=== PATIENT | male | born 1965 | race Caucasian/White ===

== ENCOUNTER 2016-10-28 17:57 | Emergency (ER) | payer OTHER ==
[~2016-10-28] VITALS: Ht 190.5 cm; Wt 104.3 kg
[~2016-10-28 17:57] MED LIST: FERR325E14 PO; FOLI1TAB19 PO; HYDR25SU91 RC; OMEP20TC10 PO; ONDA8TAB1 PO; PANT40EC PO; SYN.025 PO; [UNRECOGNIZED DRUG - CODE] PO
[2016-10-28 18:05] VITALS: BP 130/86
--- NOTE | 2016-10-28 18:16 | NUR ---
Patient ambulated to bed 4.
--- NOTE | 2016-10-28 18:17 | NUR ---
51/M BIB FAMILY C/O CHRONIC PAIN TO NECK, ARMS, LEGS X 6 YRS RECTAL BLEEDING X > 1 YR;FATIGUE, DIZZINESS. HX HEMORRHOID, HTN, THYROID. PT DENIES N/V/D; SKIN IS PINK/WARM/DRY; AAOX4 WITH EVEN AND STEADY GAIT; LUNGS CLEAR BL; HR TACHYCARDIA; PT DENIES ANY FEVER, CP, SOB, OR COUGH AT THIS TIME; PATIENT STATES PAIN OF 10/10 AT THIS TIME; VSS; PATIENT POSITIONED FOR COMFORT; HOB ELEVATED; BEDRAILS UP X2; BED DOWN. ER MD MADE AWARE OF PT STATUS.
[2016-10-28] MEDS ORDERED: NACL 0.9% 1,000 ML IV SCH (18:19)
[2016-10-28 18:41] LABS: EOSINOPHILS # (AUTO) 0.1 K/uL (0-0.4); LYMPHOCYTES # (AUTO) 1.5 K/uL (2.0-11.5); MEAN CORPUSCULAR VOLUME 64 fL (80-94); MONOCYTES # (AUTO) 0.7 K/uL (0.8-1.0); NEUTROPHILS # (AUTO) 4.2 K/uL (1.8-7.7); NEUTROPHILS % (AUTO) 63.5 % (42.2-75.2)
[2016-10-28 18:46] LABS: BASOPHILS # (AUTO) 0.2 K/uL (0.00-0.22); BASOPHILS % (AUTO) 2.5 % (0.0-2.0); EOSINOPHILS % (AUTO) 1.9 % (0.0-4.0); HEMATOCRIT 29.9 % (36-52); HEMOGLOBIN 8.9 g/dL (12.0-18.0); LYMPHOCYTES % (AUTO) 22.2 % (20.5-51.1); MEAN CORPUSCULAR HEMOGLOBIN 19 pg (27-31); MEAN CORPUSCULAR HGB CONC 30 g/dL (33-37); MONOCYTES % (AUTO) 9.9 % (1.7-9.3); PLATELET COUNT (AUTO) 173 K/uL (140-450); RED CELL DISTRIBUTION WIDTH 18.4 % (11.6-13.7); WHITE BLOOD COUNT (AUTO) 6.7 K/uL (4.8-10.8)
--- NOTE | 2016-10-28 18:49 | NUR ---
Note undone in EDM - 10/28/16 at 1902 by [email or web address] 51/M BIB FAMILY C/O CHRONIC PAIN TO NECK, ARMS, LEGS X 6 YRS RECTAL BLEEDING X > 1 YR;FATIGUE, DIZZINESS. HX HEMORRHOID, HTN, THYROID. PT DENIES N/V/D; SKIN IS PINK/WARM/DRY; AAOX4 WITH EVEN AND STEADY GAIT; LUNGS CLEAR BL; HR TACHYCARDIA; PT DENIES ANY FEVER, CP, SOB, OR COUGH AT THIS TIME; PATIENT STATES PAIN OF 10/10 AT THIS TIME; VSS; PATIENT POSITIONED FOR COMFORT; HOB ELEVATED; BEDRAILS UP X2; BED DOWN. ER MD MADE AWARE OF PT STATUS.
[2016-10-28 18:54] LABS: ANION GAP 13.7 (8-16); CARBON DIOXIDE 26.8 mmol/L (21-32); CREATININE 1.6 mg/dL (0.6-1.3); POTASSIUM 3.5 mmol/L (3.5-5.1)
[2016-10-28 18:58] LABS: INR 1.3 (0.8-1.2); PARTIAL THROMBOPLASTIN TIME 26.7 secs (22-35.6); PROTHROMBIN TIME 12.3 secs (10.8-13.4)
[2016-10-28 19:06] LABS: ALBUMIN 4.4 g/dL (3.4-5.0); TOTAL BILIRUBIN 0.8 mg/dL (0.0-1.0); TOTAL PROTEIN, SERUM 8.2 g/dL (6.4-8.2)
--- NOTE | 2016-10-28 19:17 | NUR ---
GAVE REPORT TO DEA LUGO
--- NOTE | 2016-10-28 19:27 | NUR ---
Dr. Mcdaniel evaluating patient at bedside.
[2016-10-28] MEDS ORDERED: MORPHINE SULFATE 4 MG/ML SYR IVP ONE (19:35)
[2016-10-28 20:28] VITALS: BP 132/83
--- NOTE | 2016-10-28 20:28 | NUR ---
Patient discharged BY DR CADE with v/s stable. Written and verbal after care instructions given and explained BY ER MD. Patient alert, oriented and verbalized understanding of instructions. Ambulatory with steady gait. All questions addressed prior to discharge. ID band removed. Patient advised to follow up with PMD OR RETURN TO ER IF CONDITION WORSENS. Rx of GABAPENTIN given. Patient educated on indication of medication including possible reaction and side effects. Opportunity to ask questions provided and answered.FAMILY MEMBER CALLED TO PICK HIM UP. PER SASKIA SHE WILL BE HERE AT 2100. PT ASSISTED VIA WHEELCHAIR TO THE ER LOBBY. NO S/S OF DISTRESS NOTED .
== END 2016-10-28 20:28 | disposition home or self-care (01) ==
LOC: MED 17:57
DX: G62.9 Polyneuropathy, unspecified (principal); K21.9 Gastro-esophageal reflux disease without esophagitis; I10 Essential (primary) hypertension; Z79.899 Other long term (current) drug therapy; F10.10 Alcohol abuse, uncomplicated
CPT/HCPCS: 36415; 71010; 80053; 85025; 85610; 85730; 86870; 86886; 86900; 86901; 93005; 96361; 96374; 99285; J2270; J7030; Q0092

== ENCOUNTER 2017-03-17 20:17 | Emergency (ER) | payer OTHER ==
[~2017-03-17] VITALS: Ht 190.5 cm; Wt 98.9 kg
[2017-03-17 20:41] VITALS: BP 138/88
--- NOTE | 2017-03-17 23:04 | NUR ---
TO ER BED 8
--- NOTE | 2017-03-18 00:05 | NUR ---
WENT FOR KUB VIA WHEELCHAIR.
--- NOTE | 2017-03-18 00:05 | NUR ---
Messi thompson in [facility] - 03/18/17 at 0010 by [email or web address] WENT FOR CXR VIA WHEELCHAIR.
--- NOTE | 2017-03-18 00:12 | NUR ---
BACK FROM RADIOLOGY DEPARTMENT.
--- NOTE | 2017-03-18 00:37 | NUR ---
DISCHARGED STABLE. PRESCRIPTIONS,VERBAL AND WRITTEN AFTERCARE INSTRUCTIONS GIVEN. VERBALIZED UNDERSTANDING.
[2017-03-18 00:48] VITALS: BP 129/76
== END 2017-03-18 00:37 | disposition home or self-care (01) ==
LOC: MED 20:17
DX: K59.00 Constipation, unspecified (principal); G47.09 Other insomnia; K21.9 Gastro-esophageal reflux disease without esophagitis; I10 Essential (primary) hypertension; Z79.899 Other long term (current) drug therapy
CPT/HCPCS: 74000; 93005; 99284

== ENCOUNTER 2017-08-08 06:47 | Emergency (ER) | payer OTHER ==
[~2017-08-08] VITALS: Ht 190.5 cm; Wt 104.3 kg
[2017-08-08 06:51] VITALS: BP 139/83
--- NOTE | 2017-08-08 07:01 | NUR ---
PT TAKEN TO BED 3
[2017-08-08] MEDS ORDERED: KETOROLAC 30 MG/ML VIAL IM ONE (07:05)
[2017-08-08] MEDS ORDERED: HYDROcodone/APAP 5/325 MG 1 TAB TAB PO ONE (07:05)
[2017-08-08] MEDS ORDERED: ONDANSETRON 4 MG ODT PO ONE (07:05)
--- NOTE | 2017-08-08 07:11 | NUR ---
PT TAKEN TO RADIOLOGY
[2017-08-08] MEDS ORDERED: ONDANSETRON 4 MG TAB ONE (07:32)
[2017-08-08] MEDS ORDERED: HYDROcodone/APAP 5/325 MG 1 TAB TAB ONE (07:32)
[2017-08-08] MEDS ORDERED: KETOROLAC 30 MG/ML VIAL ONE ×2 (07:33→09:38)
--- NOTE | 2017-08-08 07:43 | NUR ---
DR REYNA AT BEDSIDE TO UPDATE PT ON PLAN OF CARE
[2017-08-08] MEDS ORDERED: LIDOCAINE 1% 500 MG/50 ML VIAL INJ SCH (07:45)
--- NOTE | 2017-08-08 07:47 | NUR ---
Pt c/o left knee pain 10/10 and swollen after jumping off his truck bed since yesterday 1500. Pt is unable to bear weight. Left knee has +2 cap refill, no loss of ROM. [place] 5m, ketorolac 30mg IM and zofran odt given at 0741. NAD
[2017-08-08] MEDS ORDERED: LIDOCAINE MPF 1% - **ER/OR** 10 MG/ML VIAL ONE (08:09)
[2017-08-08] MEDS ORDERED: ONDANSETRON 4 MG/2 ML VIAL ONE (08:29)
[2017-08-08] MEDS ORDERED: ONDANSETRON 4 MG/2 ML VIAL IVP ONE (08:40)
[2017-08-08] MEDS ORDERED: KETOROLAC 30 MG/ML VIAL IVP ONE (08:40)
[2017-08-08] MEDS ORDERED: NACL 0.9% 1,000 ML IV ONE (08:40)
[2017-08-08] MEDS ORDERED: HYDROmorphone 1 MG/ML AMP IVP ONE (09:50)
[2017-08-08] MEDS ORDERED: HYDROmorphone 1 MG/ML AMP ONE (09:51)
--- NOTE | 2017-08-08 10:42 | NUR ---
Patient discharged with v/s stable. Written and verbal after care instructions given and explained. Patient alert, oriented and verbalized understanding of instructions. Ambulatory with by caregiver. All questions addressed prior to discharge. ID band removed. Patient advised to follow up with PMD. Rx of NAPROXEN, ZOFRAN ODT, AND NORCO given. Patient educated on indication of medication including possible reaction and side effects. Opportunity to ask questions provided and answered.
[2017-08-08 11:09] VITALS: BP 150/89
== END 2017-08-08 10:42 | disposition home or self-care (01) ==
LOC: MED 06:47
DX: S82.142A Displaced bicondylar fracture of left tibia, initial encounter for closed fracture (principal); K21.9 Gastro-esophageal reflux disease without esophagitis; I10 Essential (primary) hypertension; Z90.49 Acquired absence of other specified parts of digestive tract; W17.89XA Other fall from one level to another, initial encounter; Y93.89 Activity, other specified; Y92.89 Other specified places as the place of occurrence of the external cause; Y99.8 Other external cause status
CPT/HCPCS: 10022; 29505; 73502; 73562; 73600; 73700; 96361; 96372; 96374; 96375; 99284; J1170; J1885; J2001; J2405; J7030; Q0162

== ENCOUNTER 2017-09-10 17:54 | Emergency (ER) | payer OTHER ==
[~2017-09-10] VITALS: Ht 190.5 cm; Wt 104.3 kg
[2017-09-10 18:03] VITALS: BP 154/92
--- NOTE | 2017-09-10 18:07 | NUR ---
PT SENT TO LOBBY TO WAIT FOR BED/CHAIR IN A W/C.
--- NOTE | 2017-09-10 18:07 | NUR ---
PT PROVIDED WITH AN ICE PACK FOR LEFT KNEE SWELLING.
--- NOTE | 2017-09-10 19:41 | NUR ---
PT TAKEN TO CHAIR B
--- NOTE | 2017-09-10 19:54 | NUR ---
Dr. Alvarado evaluating patient.
[2017-09-10] MEDS ORDERED: KETOROLAC 30 MG/ML VIAL IM ONE (20:00)
[2017-09-10] MEDS ORDERED: HYDROcodone/APAP 5/325 MG 1 TAB TAB PO ONE (20:00)
--- NOTE | 2017-09-10 20:08 | NUR ---
PT TAKEN TO XRAY
--- NOTE | 2017-09-10 20:26 | NUR ---
PT RETURN FROM XRAY
[2017-09-10 21:23] VITALS: BP 137/82
== END 2017-09-10 21:23 | disposition home or self-care (01) ==
LOC: MED 17:54
DX: G89.18 Other acute postprocedural pain (principal); M25.562 Pain in left knee; K21.9 Gastro-esophageal reflux disease without esophagitis; I10 Essential (primary) hypertension; Z79.899 Other long term (current) drug therapy
CPT/HCPCS: 73562; 96372; 99284; J1885

== ENCOUNTER 2017-09-22 22:02 | Inpatient (IN) | payer OTHER ==
[~2017-09-22] VITALS: Ht 190.5 cm; Wt 99.8 kg
[2017-09-22 22:06] VITALS: BP 110/86
--- NOTE | 2017-09-22 22:13 | NUR ---
PT TAKEN TO BED 1
[2017-09-22] MEDS ORDERED: ONDANSETRON 4 MG/2 ML VIAL IVP ONE (22:15)
[2017-09-22] MEDS ORDERED: NACL 0.9% 500 ML IV SCH (22:15)
--- NOTE | 2017-09-22 22:15 | NUR ---
PATIENT PRESENTS TO ED WITH BLOODY VOMIT SEVERAL TIMES SINCE YESTERDAY . PT HAS C/CO OF N/V/ SKIN IS PINK/WARM/DRY; AAOX4 WITH EVEN DIFFICULTY WALKING DUE TO RECENT FX OF LEFT TIBA. LUNGS CLEAR BL; HR EVEN AND REGULAR; PT DENIES ANY FEVER, CP, SOB, OR COUGH AT THIS TIME; PATIENT STATES PAIN OF 7/10 AT THIS TIME AND PAIN IN ABDOMEN DUE TO CONSTANT VOMITIMG; VSS; PATIENT POSITIONED FOR COMFORT; HOB ELEVATED; BEDRAILS UP X2; BED DOWN. ER MD MADE AWARE OF PT STATUS.
[2017-09-22 22:41] LABS: BASOPHILS # (AUTO) 0.2 K/uL (0.00-0.22); BASOPHILS % (AUTO) 2.2 % (0.0-2.0); EOSINOPHILS % (AUTO) 0.3 % (0.0-4.0); HEMATOCRIT 31.6 % (36-52); HEMOGLOBIN 9.7 g/dL (12.0-18.0); LYMPHOCYTES # (AUTO) 1.7 K/uL (2.0-11.5); LYMPHOCYTES % (AUTO) 17.6 % (20.5-51.1); MEAN CORPUSCULAR HEMOGLOBIN 21 pg (27-31); MEAN CORPUSCULAR HGB CONC 31 g/dL (33-37); MEAN CORPUSCULAR VOLUME 68 fL (80-94); MONOCYTES # (AUTO) 0.7 K/uL (0.8-1.0); MONOCYTES % (AUTO) 7.8 % (1.7-9.3); NEUTROPHILS # (AUTO) 6.8 K/uL (1.8-7.7); NEUTROPHILS % (AUTO) 72.1 % (42.2-75.2); PLATELET COUNT (AUTO) 218 K/uL (140-450); RED BLOOD CELL COUNT(AUTO) 4.68 MIL/uL (4.20-6.10); RED CELL DISTRIBUTION WIDTH 19.4 % (11.6-13.7); WHITE BLOOD COUNT (AUTO) 9.4 K/uL (4.8-10.8)
[2017-09-22] MEDS ORDERED: MORPHINE SULFATE 4 MG/ML SYR IVP ONE (22:45)
[2017-09-22 22:55] LABS: ALBUMIN 3.8 g/dL (3.4-5.0); ANION GAP 23.8 (8-16); CREATININE 1.2 mg/dL (0.7-1.3); POTASSIUM 3.8 mmol/L (3.5-5.1); TOTAL BILIRUBIN 0.9 mg/dL (0.0-1.0)
[2017-09-22 23:11] LABS: PROTHROMBIN TIME 13.3 secs (10.8-13.4)
--- NOTE | 2017-09-23 | NUR ---
VITAL SIGNS WITHIN NORMAL LIMITS. PT IN STABLE CONDITION, NO SIGNS OF DISTRESS NOTED. BED IN LOWEST POSITION, CALL LIGHT WITHIN REACH. WILL CONTINUE TO MONITOR. Addendum: 09/24/17 at 0747 by Julieta Murphy RN DISREGARD NOTE. WRONG INPUT.
--- NOTE | 2017-09-23 00:03 | NUR ---
Dr. Man evaluating patient.
[2017-09-23] MEDS ORDERED: MORPHINE SULFATE 4 MG/ML SYR IVP ONE (00:15)
[2017-09-23] MEDS ORDERED: PANTOPRAZOLE 40 MG INJ VIAL IVP ONE (00:15)
[2017-09-23] MEDS ORDERED: NACL 0.9% 1,000 ML IV ONE ×2 (00:15→01:00)
[2017-09-23] MEDS ORDERED: PROMETHAZINE 25 MG/ML VIAL IVP ONE (00:15)
[2017-09-23] MEDS ORDERED: ACETAMINOPHEN 325 MG TAB PO PRN (01:00)
[2017-09-23] MEDS ORDERED: LORazepam 2 MG/ML VIAL IVP PRN (01:00)
[2017-09-23 02:05] VITALS: BP 137/73
--- NOTE | 2017-09-23 02:05 | NUR ---
PATIENT ADMITTED TO THE UNIT FROM ER. PATIENT IS AWAKE, ALERT AND ORIENTED. NO SIGNS AND SYMPTOMS OF DISTRESS NOTED. PATIENT ON ROOM AIR. IV SITE NOTED ON RIGHT ARM, IV SITE ASYMPTOMATIC, INTACT, AND PATENT. PLAN OF CARE DISCUSSED WITH PATIENT. PATIENT VERBALIZED UNDERSTANDING. BED IN LOWEST POSITION, SIDE RAILS UP AND CALL LIGHT WITHIN REACH. WILL CONTINUE TO MONITOR.
[2017-09-23 02:15] LABS: HEMATOCRIT 26.2 % (36-52); HEMOGLOBIN 8.2 g/dL (12.0-18.0)
[2017-09-23] MEDS ORDERED: PANTOPRAZOLE 40 MG INJ VIAL ONE ×2 (02:35→21:06)
[2017-09-23] MEDS: MORPHINE SULFATE 4 MG/ML SYR IVP PRN ×2 (02:44→06:55)
[2017-09-23] MEDS: PANTOPRAZOLE 80 MG in NACL 0.9% 100 ML IV SCH ×3 (02:52→21:12)
--- NOTE | 2017-09-23 06:00 | NUR ---
PATIENT HAD MODERATE AMOUNT OF LIQUID STOOL WITH BLOOD IN IT, ON THE BEDSIDE COMMODE AND SHEETS. SHEETS CHANGED AND PATIENT CLEANED. DR. HERNANDEZ NOTIFIED. ORDERS RECEIVED.
[2017-09-23] MEDS: ONDANSETRON 4 MG/2 ML VIAL IVP PRN ×3 (06:27→18:55)
--- NOTE | 2017-09-23 07:29 | NUR ---
PATIENT REPORT GIVEN TO MORNING NURSE AT BEDSIDE. PATIENT IS IN STABLE CONDITION.
--- NOTE | 2017-09-23 07:30 | NUR ---
RECEIVED REPORT FROM DIETARY TECH RN. PATIENT IS AAOX4, HAS NO SIGNS AND SYMPTOMS OF ACUTE DISTRESS NOTED AT THIS TIME. HAS IV TO RIGHT WRIST 22G ON PROTONIX DRIP AT 10ML/HR AND NS AT 100 ML/HR. SITE IS CLEAN DRY, PATENT AND INTACT. BEDSIDE COMMODE AVAILABLE. DISCUSSED PLAN OF CARE WITH PATIENT AND HE VERBALIZED UNDERSTANDING. BED IN LOWEST POSITION, SIDE RAILS UP X2, CALL LIGHT WITHIN REACH. WILL CONTINUE TO MONITOR.
--- NOTE | 2017-09-23 07:45 | NUR ---
PT C/O 04/25 ABDOMINAL PAIN, MEDICATED WITH MORPHINE PER ORDER. PT TOLERATED WELL. Addendum: 09/24/17 at 0747 by Julieta Murphy RN PLEASE DISREGARD, WRONG INPUT.
[2017-09-23 08:00] VITALS: BP 117/80
--- NOTE | 2017-09-23 08:00 | NUR ---
DR TATUM CALLED BACK FROM BEING PAGED BY WAREHOUSE SHIPPER RN. NEEDED TO CLARIFY ORDER MADE BY DR HERNANDEZ. SHE STATED THAT SHE WILL HAVE TO LOOK INTO IT WHEN SHE ARRIVES.
--- NOTE | 2017-09-23 09:27 | NUR ---
PATIENT HAS BEEN SCREENED AND CATEGORIZED MODERATE NUTRITION RISK. PATIENT WILL BE SEEN WITHIN 3-5 DAYS OF ADMISSION. 09/25/17-09/27/[address]
[2017-09-23] MEDS: MORPHINE SULFATE 2 MG/ML SYR IVP PRN ×4 (10:46→23:19)
[2017-09-23] MEDS: OCTREOTIDE ACETATE 1.25 MG in NACL 0.9% 250 ML IV SCH (10:52)
--- NOTE | 2017-09-23 11:00 | NUR ---
PATIENT HAS VERY DARK STOOL.
[2017-09-23 12:00] VITALS: BP 134/85
--- NOTE | 2017-09-23 12:50 | NUR ---
OBTAINED CONSENT FOR EGD. WILL KEEP PATIENT NPO UNTIL FURTHER NOTICE.
[2017-09-23 16:00] VITALS: BP 130/77
--- NOTE | 2017-09-23 19:26 | NUR ---
ENDORSED PATIENT TO MANAGER CANCER RN FOR CONTINUITY OF CARE. PATIENT IN STABLE CONDITION.
--- NOTE | 2017-09-23 19:27 | NUR ---
RECEIVED REPORT FROM DAY SHIFT RN, PT IS A/OX4, ON ROOM AIR. 22G IV TO LEFT HAND, AND 22G IV TO RIGHT FOREARM. IS ON BEDREST, WITH A HEALING INCISION TO LEFT KNEE. . UPDATED BOARD. DISCUSSED PLAN OF CARE WITH PT, PT VERBALIZED UNDERSTANDING. VITAL SIGNS WITHIN NORMAL LIMITS. PT IN STABLE CONDITION, NO SIGNS OF DISTRESS NOTED. BED IN LOWEST POSITION, CALL LIGHT WITHIN REACH. WILL CONTINUE TO MONITOR.
[2017-09-23 20:00] VITALS: BP 120/79
--- NOTE | 2017-09-23 23:50 | NUR ---
BLOOD TRANSFUSION STARTED, VERIFIED WITH DEA CORTEZ.
[2017-09-24] VITALS: BP 110/75
--- NOTE | 2017-09-24 | NUR ---
VITAL SIGNS WITHIN NORMAL LIMITS. PT IN STABLE CONDITION, NO SIGNS OF DISTRESS NOTED. BED IN LOWEST POSITION, CALL LIGHT WITHIN REACH. WILL CONTINUE TO MONITOR.
[2017-09-24 04:00] VITALS: BP 110/71
[2017-09-24] MEDS: MORPHINE SULFATE 2 MG/ML SYR IVP PRN ×5 (04:00→22:16)
--- NOTE | 2017-09-24 04:00 | NUR ---
VITAL SIGNS WITHIN NORMAL LIMITS. PT IN STABLE CONDITION, NO SIGNS OF DISTRESS NOTED. BED IN LOWEST POSITION, CALL LIGHT WITHIN REACH. WILL CONTINUE TO MONITOR.
--- NOTE | 2017-09-24 07:15 | NUR ---
RECEIVED REPORT FROM THE POWDER PRESS OPERATOR NURSE AT BEDSIDE FOR CONTINUITY OF CARE. PT IS AWAKE AND ORIENTED. INTRODUCED MYSELF AND UPDATED THE BOARD. BLOOD TRANSFUSION IS INFUSING. IV L HAND 22G. DRY AND INTACT. SKIN INTACT. L KNEE INCISION SCAR. LBM 09/23. BSC IN PLACE. NO COMPLAINTS AT THIS TIME. WILL CONTINUE TO MONITOR PT.
[2017-09-24 07:24] LABS: BASOPHILS # (AUTO) 0.3 K/uL (0.00-0.22); BASOPHILS % (AUTO) 3.5 % (0.0-2.0); EOSINOPHILS # (AUTO) 0.1 K/uL (0-0.4); EOSINOPHILS % (AUTO) 1.2 % (0.0-4.0); LYMPHOCYTES # (AUTO) 1.8 K/uL (2.0-11.5); LYMPHOCYTES % (AUTO) 23.2 % (20.5-51.1); MEAN CORPUSCULAR HEMOGLOBIN 22 pg (27-31); MEAN CORPUSCULAR HGB CONC 31 g/dL (33-37); MEAN CORPUSCULAR VOLUME 71 fL (80-94); MONOCYTES # (AUTO) 0.7 K/uL (0.8-1.0); MONOCYTES % (AUTO) 8.7 % (1.7-9.3); NEUTROPHILS # (AUTO) 4.8 K/uL (1.8-7.7); NEUTROPHILS % (AUTO) 63.4 % (42.2-75.2); PLATELET COUNT (AUTO) 137 K/uL (140-450); RED BLOOD CELL COUNT(AUTO) 2.93 MIL/uL (4.20-6.10); RED CELL DISTRIBUTION WIDTH 19.9 % (11.6-13.7); WHITE BLOOD COUNT (AUTO) 7.7 K/uL (4.8-10.8)
[2017-09-24] MEDS: PANTOPRAZOLE 80 MG in NACL 0.9% 100 ML IV SCH ×2 (07:48→17:00)
[2017-09-24 08:00] VITALS: BP 124/75
[2017-09-24 08:55] LABS: HEMATOCRIT 20.9 % (36-52); HEMOGLOBIN 6.5 g/dL (12.0-18.0)
[2017-09-24 08:58] LABS: ALBUMIN 2.9 g/dL (3.4-5.0); ANION GAP 10.5 (8-16); CARBON DIOXIDE 30.2 mmol/L (21-32); CREATININE 1.2 mg/dL (0.7-1.3); POTASSIUM 3.7 mmol/L (3.5-5.1); TOTAL BILIRUBIN 1.1 mg/dL (0.0-1.0)
[2017-09-24 09:03] LABS: MAGNESIUM 1.4 mg/dL (1.8-2.4); PHOSPHORUS 2.3 mg/dL (2.5-4.9)
--- NOTE | 2017-09-24 09:15 | NUR ---
REMOVED ALL BLOOD PRODUCTS AND TUBING INTO RED BIO HAZARD BAG. PT TOLERATED BLOOD TRANSFUSION WELL. NO SIDE EFFECTS. WILL RESUME SANDOSTATIN.
[2017-09-24] MEDS: OCTREOTIDE ACETATE 1.25 MG in NACL 0.9% 250 ML IV SCH (10:24)
--- NOTE | 2017-09-24 10:28 | NUR ---
DR. Denise LOFTON CAME TODAY TO SEE PT. TRYING TO DO EGD BUT NO TEAM. MIGHT NEED TO DO TOMORROW. WE WILL SEE. WILL KEEP PT UPDATED. DAYNA NEW SANDOSTATIN. PT TOLERATING WELL.
[2017-09-24] MEDS: FERRIC GLUCONATE 125 MG in NACL 0.9% 100 ML IV SCH (11:00)
[2017-09-24 11:23] LABS: BASOPHILS # (AUTO) 0.2 K/uL (0.00-0.22); BASOPHILS % (AUTO) 3.8 % (0.0-2.0); EOSINOPHILS # (AUTO) 0.1 K/uL (0-0.4); EOSINOPHILS % (AUTO) 1.6 % (0.0-4.0); HEMATOCRIT 23.1 % (36-52); HEMOGLOBIN 7.2 g/dL (12.0-18.0); LYMPHOCYTES # (AUTO) 1.9 K/uL (2.0-11.5); LYMPHOCYTES % (AUTO) 29.1 % (20.5-51.1); MEAN CORPUSCULAR HEMOGLOBIN 23 pg (27-31); MEAN CORPUSCULAR HGB CONC 31 g/dL (33-37); MEAN CORPUSCULAR VOLUME 72 fL (80-94); MONOCYTES # (AUTO) 0.5 K/uL (0.8-1.0); MONOCYTES % (AUTO) 8.2 % (1.7-9.3); NEUTROPHILS # (AUTO) 3.7 K/uL (1.8-7.7); NEUTROPHILS % (AUTO) 57.3 % (42.2-75.2); PLATELET COUNT (AUTO) 126 K/uL (140-450); RED CELL DISTRIBUTION WIDTH 19.8 % (11.6-13.7); WHITE BLOOD COUNT (AUTO) 6.4 K/uL (4.8-10.8)
--- NOTE | 2017-09-24 11:40 | NUR ---
NEW IV STARTED. IV ON R WRIST 22G AND R HAND 22G. PT TOLERATED WELL. WILL CONTINUE TO MONITOR PT.
[2017-09-24 12:00] VITALS: BP 127/72
[2017-09-24 12:44] LABS: BARBITURATE, URINE NEG. ng/ml (NEG <=200); BENZODIAZEPINE, URINE NEG. ng/mL (NEG <=200); CANNABINOID, URINE POS. ng/mL (NEG <=50); COCAINE, URINE NEG. ng/mL (NEG <=300); OPIATE, URINE POS. ng/mL (NEG <=2000); PHENCYCLIDINE SCREEN,URINE NEG. ng/mL (NEG <=25)
--- NOTE | 2017-09-24 13:37 | NUR ---
PT REQUESTS PAIN MEDS. WILL ADMINISTER. IV SITE BLEEDING. CHECKED IV AND REDRESSED SITE. NEW GOWN GIVEN. FINISHED FERRIC GLUCONATE. RESTARTED PROTONIC CONTINUOUS DRIP. NOW SANDOSTATIN AND PROTONIC IS INFUSING.
[2017-09-24] MEDS ORDERED: MAG SULF 2000 MG/WATER PREMIX 100 ML IV ONE (15:20)
--- NOTE | 2017-09-24 15:30 | NUR ---
SPOKE WITH DR TATUM. LET HER KNOW OF PT'S MAG LEVEL 1.4. ORDERED 4G MAG RIDER. SHE ASKED ME ABOUT HIS H/H. LET HER KNOW IT IS 7.2/23.1. SHE ORDERED 2 MORE UNITS BLOOD. WILL FOLLOW UP WITH ORDERS.
[2017-09-24 16:00] VITALS: BP 129/80
--- NOTE | 2017-09-24 17:04 | NUR ---
CHECKED IN ON PT. PT HAD TO USE THE BSC AND ACCIDENTALLY PULLED OUT BOTH IV SITES. NOTIFIED JHOANA, CHARGE NURSE. SHE WILL RESTART 2 NEW ONES.
--- NOTE | 2017-09-24 19:25 | NUR ---
RECEIVED FROM AM RN IN BED AWAKE AND ALERT. NO SOB. DX. HEMATEMESIS. FOR BLOOD TRANSFUSION . ORIENTED X 4. CLEAR SPEECH. CARE PLANS FOR THE NIGHT DISCUSSED WITH HIM AND CALL LIGHT PLACED BESIDE HIM FOR HELP. TELEMETRY MONITORING. IVF SITE TO RIGHT FOREARM INTACT AND PATENT. WITH LEFT KNEE SURGICAL INCISION COVERED WITH DRESSING.
--- NOTE | 2017-09-24 19:25 | NUR ---
ENDORSED PT TO THE PERMIT SPECIALIST NURSE AT BEDSIDE FOR CONTINUITY OF CARE. PT IN STABLE CONDITION.
[2017-09-24 21:57] VITALS: BP 115/61
--- NOTE | 2017-09-24 22:30 | NUR ---
MEDICATION FOR PAIN RELIEVER REQUESTED ADMINISTERED. NO FURTHER REQUEST. ABLE TO VERBALIZE NEEDS WELL. TELEMETRY MONITORING. NO BLOODY STOOL OR VOMITING REPORTED TO ME. INFORMED PT. TO LET ME KNOW IF WITH BLOODY STOOL OR HEMATEMESIS.
[2017-09-25 00:35] VITALS: BP 112/72
--- NOTE | 2017-09-25 01:19 | NUR ---
SLEEPING AT THIS TIME. CALL LIGHT WITH IN REACH AND PT. ALERT AND ORIENTED X 4.
[2017-09-25] MEDS: MORPHINE SULFATE 2 MG/ML SYR IVP PRN ×2 (03:02→08:41)
[2017-09-25] MEDS: PANTOPRAZOLE 80 MG in NACL 0.9% 100 ML IV SCH (03:07)
[2017-09-25 03:18] VITALS: BP 126/80
--- NOTE | 2017-09-25 03:18 | NUR ---
AWAKE AT THIS TIME AND WANTING TO HAVE PAIN RELIEVER. MEDICATED REQUESTED. A/O X4 CLEAR SPEECH. NO SOB.
--- NOTE | 2017-09-25 04:59 | NUR ---
FEEDER CATCHER TOBACCO CALLED INFORMING ME THAT BLOOD ORDERED IS READY TO BE PICKED UP. WILL START THE BLOOD TRANSFUSION FOR 3RD UNIT.
--- NOTE | 2017-09-25 05:31 | NUR ---
LAB. TECH NEEDS TO INPUT INFOS RE: BLOOD UNIT INTO COMPUTER. WILL CALL ME BACK WHEN READY. INFORMED CHARGE NURSE OF IT AND PT.
--- NOTE | 2017-09-25 07:30 | NUR ---
ENDORSEMENT RECEIVED FROM TAXONOMIST NURSE. PATIENT IS AWAKE, ALERT. RESPIRATION EVEN, UNLABOR ON ROOM AIR. SKIN DRY AND WARM. IV PATENT AND INTACT. BLOOD IS TRANSFUSING WELL. PATIENT COMPLAINED OF GENERALIZED PAIN 8/10. PATIENT IS LAYING COMFORTABLY IN BED, NO DISTRESS NOTED. PLAN OF CARE WAS DISCUSSED WITH PATIENT. BED AT LOW POSITION, SIDE RAILS UP. CALL LIGHT WITHIN REACH
[2017-09-25 08:00] VITALS: BP 129/77
--- NOTE | 2017-09-25 10:00 | NUR ---
BLOOD INFUSING IS DONE. PATIENT TOLERATED WELL.
[2017-09-25] MEDS: MIDAZOLAM 2 MG/2 ML VIAL ONE ×2 (10:12→10:53)
[2017-09-25] MEDS: diphenhydrAMINE 50 MG/ML VIAL ONE ×2 (10:12→10:55)
[2017-09-25] MEDS: fentaNYL 0.05 MG/ML VIAL ONE ×2 (10:12→10:53)
--- NOTE | 2017-09-25 10:15 | NUR ---
OR NURSES ARE AT BEDSIDE, TRANSFERRING PATIENT. REPORT WAS GIVEN. PATIENT IS STABLE AT THIS TIME
--- NOTE | 2017-09-25 11:15 | NUR ---
PATIENT IS TRANSFERRED BACK TO THE UNIT. VS WAS TAKEN. REPORT WAS GIVEN. PATIENT IS STABLE, AWAKE, ALERT. RESPIRATION EVEN, UNLABOR ON ROOM AIR. NO DISTRESS NOTED AT THIS TIME
[2017-09-25] MEDS ORDERED: METOCLOPRAMIDE 10 MG TAB PO SCH (11:30)
[2017-09-25 12:00] VITALS: BP 128/74
[2017-09-25] MEDS ORDERED: FERROUS SULFATE 325 MG TABEC PO SCH (12:00)
[2017-09-25] MEDS: FERRIC GLUCONATE 125 MG in NACL 0.9% 100 ML IV SCH (12:13)
--- NOTE | 2017-09-25 14:06 | NUR ---
CM NOTE INITIAL REVIEW FAXED TO [facility] / FAX# [phone], ATTN: CASSIE #[phone]
[2017-09-25] MEDS ORDERED: LACT10SO1 PO (15:05)
[2017-09-25] MEDS ORDERED: FERR325E14 PO (15:05)
[2017-09-25] MEDS ORDERED: PANT40EC PO (15:05)
[2017-09-25 15:11] LABS: BASOPHILS # (AUTO) 0.1 K/uL (0.00-0.22); EOSINOPHILS # (AUTO) 0.1 K/uL (0-0.4); EOSINOPHILS % (AUTO) 2.7 % (0.0-4.0); HEMATOCRIT 26.4 % (36-52); HEMOGLOBIN 8.3 g/dL (12.0-18.0); LYMPHOCYTES # (AUTO) 1.3 K/uL (2.0-11.5); LYMPHOCYTES % (AUTO) 25.2 % (20.5-51.1); MEAN CORPUSCULAR HEMOGLOBIN 23 pg (27-31); MEAN CORPUSCULAR HGB CONC 31 g/dL (33-37); MEAN CORPUSCULAR VOLUME 74 fL (80-94); MONOCYTES # (AUTO) 0.4 K/uL (0.8-1.0); MONOCYTES % (AUTO) 7.1 % (1.7-9.3); NEUTROPHILS # (AUTO) 3.2 K/uL (1.8-7.7); PLATELET COUNT (AUTO) 122 K/uL (140-450); RED BLOOD CELL COUNT(AUTO) 3.56 MIL/uL (4.20-6.10); RED CELL DISTRIBUTION WIDTH 19.5 % (11.6-13.7); WHITE BLOOD COUNT (AUTO) 5.1 K/uL (4.8-10.8)
--- NOTE | 2017-09-25 15:44 | NUR ---
DISCHARGE INSTRUCTION WAS GIVEN AND EXPLAINED TO THE PATIENT. PATIENT VERBALIZED UNDERSTANDING. IVS WERE REMOVED, CATHETER INTACT, BLEEDING WAS CONTROLLED. PATIENT TOLERATED WELL. ID BAND WAS REMOVED. WOUND PICTURE WAS TAKEN. PURCHASING CLERK WAS REMOVED. ALL BELONGINGS WERE TAKEN WITH THE PATIENT. PATIENT IS STABLE AT THIS TIME
[2017-09-25] MEDS ORDERED: PANTOPRAZOLE 40 MG TABEC PO SCH (21:00)
[2017-09-25] MEDS ORDERED: LACTULOSE 20 GM/30 ML UDC PO SCH (21:00)
== END 2017-09-25 15:30 | disposition home or self-care (01) | DRG 243 ==
LOC: MED 22:02 → MTU 09-23 01:10
PROVIDERS: ADMIT Hospitalist; ATTEND Hospitalist
PROC: 30233N1 Transfusion of Nonautologous Red Blood Cells into Peripheral Vein, Percutaneous Approach (ICD-10-PCS; 2017-09-23)
PROC: 0DJ08ZZ Inspection of Upper Intestinal Tract, Via Natural or Artificial Opening Endoscopic (ICD-10-PCS; principal; 2017-09-25 10:30)
DX: K22.11 Ulcer of esophagus with bleeding (principal); K74.60 Unspecified cirrhosis of liver; F11.20 Opioid dependence, uncomplicated; D62 Acute posthemorrhagic anemia; F10.10 Alcohol abuse, uncomplicated; I10 Essential (primary) hypertension; D50.9 Iron deficiency anemia, unspecified; K44.9 Diaphragmatic hernia without obstruction or gangrene; G89.4 Chronic pain syndrome; K21.0 Gastro-esophageal reflux disease with esophagitis; Z60.2 Problems related to living alone; F12.10 Cannabis abuse, uncomplicated; Z90.49 Acquired absence of other specified parts of digestive tract
CPT/HCPCS: 36415; 71045; 80053; 80305; 83690; 83735; 84100; 85018; 85025; 85610; 85730; 86886; 86900; 86901; 86920; 87081; C9113; J1200; J2250; J2270; J2354; J2405; J2550; J2916; J3010; J3475; J7030; J7120; J8597; P9016; Q0092

== ENCOUNTER 2017-11-02 09:00 | Inpatient (IN) | payer OTHER ==
[~2017-11-02] VITALS: Ht 190.5 cm; Wt 88.9 kg
[~2017-11-02 09:00] MED LIST changes: +LACT10SO1 PO; -OMEP20TC10 PO; -ONDA8TAB1 PO
[2017-11-02 09:20] VITALS: BP 113/67
--- NOTE | 2017-11-02 09:22 | NUR ---
PT TRANSFERED TO BED 1 WITH C/O OF VOMITING BLOOD. PT ACTIVELY VOMITING BLOOD. C/O OF NUESEA. PT HAS HISTORY OF ESPOHIGEAL BLEED. PT ADMITED TO [facility] DRINKING LAST NIGHT. NO C/O OF SOB BUT PT IS SAYING HE HAS VOMITIED A LOT LAST NIGHT AND HIS STOMACH HURTS PT SAID PAIN WAS 9/10 IN STOMACH.
[2017-11-02] MEDS ORDERED: ONDANSETRON 4 MG/2 ML VIAL ONE (09:39)
[2017-11-02] MEDS ORDERED: PROCHLORPERAZINE 10 MG/2 ML VIAL IVP ONE (09:40)
[2017-11-02] MEDS ORDERED: PANTOPRAZOLE 40 MG INJ VIAL IVP ONE (09:40)
[2017-11-02] MEDS ORDERED: diphenhydrAMINE 50 MG/ML VIAL IVP ONE (09:40)
[2017-11-02] MEDS ORDERED: ONDANSETRON 4 MG/2 ML VIAL IVP ONE (09:40)
[2017-11-02] MEDS ORDERED: OCTREOTIDE ACETATE 100 MCG/ML VIAL IV STA (09:40)
[2017-11-02] MEDS ORDERED: fentaNYL 0.05 MG/ML VIAL IVP ONE (09:40)
[2017-11-02] MEDS ORDERED: NACL 0.9% 500 ML IV SCH (09:40)
[2017-11-02 10:17] LABS: BASOPHILS # (AUTO) 0.5 K/uL (0.00-0.22); BASOPHILS % (AUTO) 4.7 % (0.0-2.0); HEMATOCRIT 39.6 % (36-52); HEMOGLOBIN 12.5 g/dL (12.0-18.0); LYMPHOCYTES # (AUTO) 2.1 K/uL (2.0-11.5); MEAN CORPUSCULAR HEMOGLOBIN 24 pg (27-31); MEAN CORPUSCULAR HGB CONC 32 g/dL (33-37); MEAN CORPUSCULAR VOLUME 77.4 fL (80-94); MONOCYTES # (AUTO) 0.4 K/uL (0.8-1.0); MONOCYTES % (AUTO) 3.9 % (1.7-9.3); NEUTROPHILS # (AUTO) 6.7 K/uL (1.8-7.7); NEUTROPHILS % (AUTO) 69.4 % (42.2-75.2); PLATELET COUNT (AUTO) 270 K/uL (140-450); RED BLOOD CELL COUNT(AUTO) 5.12 MIL/uL (4.20-6.10); RED CELL DISTRIBUTION WIDTH 18.9 % (11.6-13.7); WHITE BLOOD COUNT (AUTO) 9.7 K/uL (4.8-10.8)
[2017-11-02] MEDS ORDERED: OCTREOTIDE ACETATE 1.25 MG in NACL 0.9% 250 ML IV STA ×2 (10:22→10:34)
[2017-11-02 10:32] LABS: ANION GAP 24.3 (8-16); CARBON DIOXIDE 23.2 mmol/L (21-32); CREATININE 1.4 mg/dL (0.7-1.3); POTASSIUM 3.5 mmol/L (3.5-5.1)
[2017-11-02 10:38] LABS: ALBUMIN 4.3 g/dL (3.4-5.0); TOTAL BILIRUBIN 0.8 mg/dL (0.0-1.0)
[2017-11-02 10:49] LABS: PROTHROMBIN TIME 13.3 secs (10.8-13.4)
[2017-11-02] MEDS ORDERED: TRAM50TA1 PO (11:17)
[2017-11-02] MEDS ORDERED: AMLO10TA PO (11:17)
[2017-11-02] MEDS ORDERED: GABA300C PO (11:17)
[2017-11-02] MEDS ORDERED: IBUP-2213 PO (11:17)
[2017-11-02] MEDS ORDERED: ORE25 PO (11:17)
[2017-11-02] MEDS ORDERED: SYN.05 PO (11:17)
[2017-11-02] MEDS ORDERED: ACET-9534 PO (11:17)
[2017-11-02] MEDS ORDERED: OMEP20TC12 PO (11:17)
[2017-11-02] MEDS ORDERED: NACL 0.9% 1,000 ML IV SCH (11:19)
[2017-11-02] MEDS ORDERED: LORazepam 2 MG/ML VIAL IVP PRN (11:20)
[2017-11-02] MEDS ORDERED: ACETAMINOPHEN 325 MG TAB PO PRN (11:20)
[2017-11-02] MEDS: MULTIVITAMIN-12 10 ML, THIAMINE 100 MG, MAGNESIUM SULFATE 50% 2,000 MG, FOLIC ACID 5 MG... IV SCH ×5 (12:30)
--- NOTE | 2017-11-02 12:30 | NUR ---
PT WAS GIVEN SPECIMIN CUP AND WENT TO RR BUT DID NOT PROVIDE SAMPLE "HE SAID HE COULDNT GO"
--- NOTE | 2017-11-02 12:40 | NUR ---
PATIENT BROUGHT OVER TO UNIT FROM THE ER VIA GURNEY. RECEIVED BEDSIDE REPORT FROM ED NURSE. PATIENT IS AAOX4, NO VOMITING AT THIS TIME. NO SIGNS AND SYMPTOMS OF ACUTE DISTRESS NOTED AT THIS TIME. HAS IV TO THE LEFT AC 18G INFUSING OCTEREOTIDE AT 10ML/HR. SITE IS CLEAN, DRY PATENT AND INTACT. HAS IV TO THE RIGHT AC 20G, SALINE LOCK AT THIS TIME. SITE IS CLEAN, DRY, PATENT AND INTACT. PATIENTS SKIN IS INTACT. ORIENTED PATIENT TO ROOM, EXPLAINED CALL LIGHT. PATIENT VERBALIZED UNDERSTANDING. BED IN LOWEST POSITION, SIDE RAILS UP X2, CALL LIGHT WITHIN REACH. WILL CONTINUE TO MONITOR.
--- NOTE | 2017-11-02 12:43 | NUR ---
Patient will be admitted to care of DR TATUM. Admited to TELEMETRY. Will go to room 114. Belongings list completed. Report to EV MALIN.
[2017-11-02] MEDS: ONDANSETRON 4 MG/2 ML VIAL IVP PRN ×3 (13:02→21:27)
[2017-11-02] MEDS: MORPHINE SULFATE 4 MG/ML SYR IVP PRN ×3 (13:04→21:28)
[2017-11-02 16:00] VITALS: BP 131/90
--- NOTE | 2017-11-02 19:30 | NUR ---
RECEIVED REPORT FROM DAY SHIFT NURSE PURA. PT RESTING IN BED. AOX4, ON ROOM AIR. IV LEFT AC #18G AND RIGHT AC #20G. NPO. DISCUSSED PLAN OF CARE AND PT VERBALIZED UNDERSTANDING. BED IN LOWEST POSITION, BED BREAKS LOCKED. BED SIDE TABLE AND CALL LIGHT WITHIN REACH. NO S/S OF RESPIRATORY DISTRESS OR DISCOMFORT NOTED AT THIS TIME. WILL CONTINUE TO MONITOR.
--- NOTE | 2017-11-02 19:30 | NUR ---
ENDORSED PATIENT TO HOG SLAUGHTERER RN FOR CONTINUITY OF CARE. PATIENT IN STABLE CONDITION.
[2017-11-02 20:00] VITALS: BP 137/91
--- NOTE | 2017-11-02 20:28 | NUR ---
PT HAD ORDER FOR BLOOD TRANSFUSION PER AM NURSE.CONSENT SIGNED BY PT.NEEDS TO SIGN BY TOO.CALLED, IS SUPERVISOR BEAM DEPARTMENT.HE SAID SIGN TELEPHONE ORDER BUT LAB WILL NOT ACCEPT THAT.ANY WAY WE HAVE CHANCE TO TRANSFUSE BLOOD W/O SIGN THE CONSENT.BUT WHEN I CHECKED ORDER IN THE COMMENT SAID HOLD.AND H/H =12.5/39.6.SO WE WILL NOT TRANSFUSE BLOOD UNTIL VERIFY ORDER W/ IN AM.DISCUSSED W/EMELY RN QUALITY ASSISTANT SHE IS AGREED.
--- NOTE | 2017-11-02 21:00 | NUR ---
IV LEFT AC #18G WAS PAINFUL FOR PT. UPON ASSESSMENT IV DID NOT FLUSH AND NO BLOOD RETURN. NEW IV ON LEFT FA #22G INSERTED BY CHARGE NURSE MAO-DEA ON FIRST TRY. PT TOLERATED WELL.
--- NOTE | 2017-11-02 21:28 | NUR ---
PT C/O PAIN 9/10 AND NAUSEA. MEDICATED WITH MORPHINE SULFATE 2MG FOR PAIN AND ZOFRAN FOR NAUSEA. WILL CONTINUE TO MONITOR.
--- NOTE | 2017-11-02 22:26 | NUR ---
PT RESTING IN BED. NO S/S OF RESPIRATORY DISTRESS OR DISCOMFORT NOTED AT THIS TIME. WILL CONTINUE TO MONITOR.
[2017-11-02] MEDS: NACL 0.9% 1,000 ML IV SCH (22:30)
[2017-11-03] VITALS: BP 136/86
--- NOTE | 2017-11-03 | NUR ---
PT TOLERATED VITAL SIGNS WELL. NO S/S OF RESPIRATORY DISTRESS OR DISCOMFORT. WILL CONTINUE TO MONITOR.
[2017-11-03] MEDS: ONDANSETRON 4 MG/2 ML VIAL IVP PRN ×3 (01:36→10:06)
[2017-11-03] MEDS: MORPHINE SULFATE 4 MG/ML SYR IVP PRN ×2 (01:36→05:50)
--- NOTE | 2017-11-03 01:36 | NUR ---
PT C/O PAIN 9/10 AND NAUSEA. MEDICATED WITH MORPHINE SULFATE 2MG FOR PAIN AND ZOFRAN FOR NAUSEA. WILL CONTINUE TO MONITOR.
--- NOTE | 2017-11-03 02:00 | NUR ---
PT CONTINUES TO SLEEP. WILL CONTINUE TO MONITOR. Addendum: 11/03/17 at 0217 by Jen Julian RN WRONG PT. PLEASE DISREGARD NOTE.
[2017-11-03 04:00] VITALS: BP 139/80
[2017-11-03] MEDS: NACL 0.9% 1,000 ML IV SCH (04:00)
--- NOTE | 2017-11-03 04:23 | NUR ---
VITAL SIGNS TOLERATED WELL. IVF NS O.9% NEW BAG HUNG. NO S/S OF RESPIRATORY DISTRESS OR DISCOMFORT NOTED AT THIS TIME. WILL CONTINUE TO MONITOR.
--- NOTE | 2017-11-03 05:49 | NUR ---
PT C/O 03/26 PAIN AND NAUSEA. MORPHINE SULFATE 2MG GIVEN FOR PAIN AND ZOFRAN GIVEN FOR NAUSEA. WILL CONTINUE TO MONITOR.
[2017-11-03 06:41] LABS: BASOPHILS # (AUTO) 0.2 K/uL (0.00-0.22); BASOPHILS % (AUTO) 2.5 % (0.0-2.0); EOSINOPHILS % (AUTO) 0.5 % (0.0-4.0); HEMATOCRIT 28.4 % (36-52); HEMOGLOBIN 9.1 g/dL (12.0-18.0); LYMPHOCYTES # (AUTO) 1.7 K/uL (2.0-11.5); LYMPHOCYTES % (AUTO) 23.9 % (20.5-51.1); MEAN CORPUSCULAR HEMOGLOBIN 25 pg (27-31); MEAN CORPUSCULAR HGB CONC 32 g/dL (33-37); MEAN CORPUSCULAR VOLUME 77.5 fL (80-94); MONOCYTES # (AUTO) 0.7 K/uL (0.8-1.0); NEUTROPHILS # (AUTO) 4.5 K/uL (1.8-7.7); NEUTROPHILS % (AUTO) 63.1 % (42.2-75.2); PLATELET COUNT (AUTO) 125 K/uL (140-450); RED BLOOD CELL COUNT(AUTO) 3.67 MIL/uL (4.20-6.10); RED CELL DISTRIBUTION WIDTH 18.4 % (11.6-13.7); WHITE BLOOD COUNT (AUTO) 7.1 K/uL (4.8-10.8)
--- NOTE | 2017-11-03 07:15 | NUR ---
ENDORSED PT CARE TO DAY SHIFT NURSE OB FOR CONTINUITY OF CARE. PT IN STABLE CONDITION.
--- NOTE | 2017-11-03 07:40 | NUR ---
PATIENT IS AWAKE, ALERT. RESPIRATION EVEN, UNLABOR ON ROOM AIR. SKIN DRY AND WARM. IV PATENT AND INTACT. COMPLAINED OF ABDOMINAL PAIN, AND NAUSEA, WILL MEDICATE PER ORDER. PLAN OF CARE WAS DISCUSSED WITH PATIENT. BED AT LOW POSITION, SIDE RAILS UP. CALL LIGHT WITHIN REACH
[2017-11-03 07:55] LABS: ALBUMIN 3.5 g/dL (3.4-5.0); ANION GAP 11.4 (8-16); CARBON DIOXIDE 29.4 mmol/L (21-32); CREATININE 1.2 mg/dL (0.7-1.3); MAGNESIUM 1.9 mg/dL (1.8-2.4); POTASSIUM 3.8 mmol/L (3.5-5.1); TOTAL BILIRUBIN 1.1 mg/dL (0.0-1.0)
[2017-11-03 08:00] VITALS: BP 145/89
--- NOTE | 2017-11-03 08:56 | NUR ---
FAXED INITIAL REVIEW TO [facility] [phone] PHONE CASSIE [phone]
--- NOTE | 2017-11-03 09:19 | NUR ---
PATIENT HAS BEEN SCREENED AND CATEGORIZED MODERATE NUTRITION RISK. PATIENT WILL BE SEEN WITHIN 3-5 DAYS OF ADMISSION. 11/04/17 - 11/06/[address]
--- NOTE | 2017-11-03 09:20 | NUR ---
PATIENT AWAKE, ALERT, WATCHING TV COMFORTABLY. RESPIRATION EVEN, UNLABOR ON ROOM AIR. COMPLAINED OF NAUSEA AND ABDOMINAL PAIN, AND REQUESTED PAIN MEDICATION. WILL MEDICATE PER ORDER
[2017-11-03] MEDS: PANTOPRAZOLE 40 MG INJ VIAL IVP SCH ×2 (09:22→20:43)
[2017-11-03] MEDS ORDERED: MIDAZOLAM 2 MG/2 ML VIAL ONE (10:09)
[2017-11-03] MEDS ORDERED: diphenhydrAMINE 50 MG/ML VIAL ONE (10:09)
[2017-11-03] MEDS ORDERED: fentaNYL 0.05 MG/ML VIAL ONE (10:09)
--- NOTE | 2017-11-03 10:17 | NUR ---
OR NURSES WERE AT BEDSIDE, TRANSFERRING PATIENT. CONSENT WAS OBTAINED AT BEDSIDE, SIGNED BY PATIENT. PATIENT VERBALIZED UNDERSTANDING RISKS AND BENEFITS OF THE PROCEDURE. PAIN MED WAS HELD PER ORDER. ZOFRAN WAS GIVEN PER ORDER. PRE-OP CHECK LIST WAS DONE. PATIENT IS STABLE AT THIS TIME.
[2017-11-03] MEDS ORDERED: OCTREOTIDE ACETATE 1.25 MG in NACL 0.9% 250 ML IV SCH (10:30)
--- NOTE | 2017-11-03 11:05 | NUR ---
PATIENT WAS TRANSFERRED BACK FROM OR. REPORT WAS GIVEN AT BEDSIDE. VS IS STABLE. PATIENT IS DROWSY, EASILY AROUSABLE BY NAME. RESPIRATION EVEN, UNLABOR ON 2L. IVF AND MED WERE GIVEN PER ORDER. CALL LIGHT WITHIN REACH
[2017-11-03] MEDS: METOCLOPRAMIDE 10 MG TAB PO SCH ×2 (11:17→16:52)
[2017-11-03] MEDS: DEXT 5% / NACL 0.45% 1,000 ML IV SCH (11:18)
[2017-11-03 12:00] VITALS: BP 135/85
[2017-11-03] MEDS ORDERED: MIDAZOLAM 2 MG/2 ML VIAL IVP ONE (12:20)
[2017-11-03] MEDS ORDERED: fentaNYL 0.05 MG/ML VIAL IVP ONE (12:20)
[2017-11-03] MEDS ORDERED: diphenhydrAMINE 50 MG/ML VIAL IVP ONE (12:20)
[2017-11-03] MEDS: MULTIVITAMIN-12 10 ML, THIAMINE 100 MG, MAGNESIUM SULFATE 50% 2,000 MG, FOLIC ACID 5 MG... IV SCH ×5 (12:40)
[2017-11-03 13:40] LABS: BARBITURATE, URINE NEG. ng/ml (NEG <=200); BENZODIAZEPINE, URINE NEG. ng/mL (NEG <=200); CANNABINOID, URINE NEG. ng/mL (NEG <=50); COCAINE, URINE NEG. ng/mL (NEG <=300); OPIATE, URINE POS. ng/mL (NEG <=2000); PHENCYCLIDINE SCREEN,URINE NEG. ng/mL (NEG <=25)
--- NOTE | 2017-11-03 14:00 | NUR ---
RECEIVED PT'S REPORT FROM [facility]. PT IS RESTING IN BED. SLEEPING, EASILY AROUSED BY NAME. PT IS OX4. BANANA BAG RUNNING AT 100ML/HR, INFUSING WELL. ASYMPTOMATIC. NO S/S OF ACUTE DISTRESS. ON TELE.
--- NOTE | 2017-11-03 14:40 | NUR ---
PT C/O DISCOMFORT FROM EGD PROCEDURE EARLIER, STATED DISCOMFORT AND FELT ANXIOUS. WILL ADMINISTER 1MG ATIVAN.
[2017-11-03 16:00] VITALS: BP 126/81
[2017-11-03] MEDS: FERROUS SULFATE 325 MG TABEC PO SCH (16:54)
--- NOTE | 2017-11-03 17:00 | NUR ---
PT WALKED TO BATHROOM, NO S/S SOB, GAIT STEADY.
--- NOTE | 2017-11-03 19:30 | NUR ---
ENDORSED PT TO INSTRUMENT MAKER RN FOR CONTINUITY OF CARE, PT IN STABLE CONDITION.
--- NOTE | 2017-11-03 19:30 | NUR ---
RECEIVED REPORT FROM DAY SHIFT NURSE STACEY-RN. PT RESTING IN BED. AOX4, ON ROOM AIR WITH LEFT IV FA #22G. IV PATENT AND FLUSHING WELL. NO S/S OF RESPIRATORY DISTRESS OR DISCOMFORT NOTED AT THIS TIME. DISCUSSED PLAN OF CARE AND PT VERBALIZED UNDERSTANDING. WHITE BOARD UPDATED. BED IN LOWEST POSITION, BED BREAKS LOCKED. BED SIDE TABLE AND CALL LIGHT WITHIN REACH. WILL CONTINUE TO MONITOR.
[2017-11-03 20:00] VITALS: BP 130/82
--- NOTE | 2017-11-03 20:30 | NUR ---
PT REQUESTING SLEEPING MEDICATION BC OF DIFFICULTY FALLING ASLEEP. SPOKE WITH DR. SALGADO WHO IS TAKING OVER DR. TATUM THIS EVENING. DR. SALGADO ORDERED AMBIEN 5MG PO PRN FOR INSOMNIA.
[2017-11-03] MEDS ORDERED: ZOLPIDEM 5 MG TAB PO PRN (20:35)
--- NOTE | 2017-11-03 20:45 | NUR ---
SCHEDULED MEDICATION GIVEN. PT TOLERATED WELL. WILL CONTINUE TO MONITOR.
--- NOTE | 2017-11-03 21:35 | NUR ---
AMBIEN GIVEN. PT TOLERATED WELL. WILL CONTINUE TO MONITOR.
--- NOTE | 2017-11-03 23:21 | NUR ---
PT SLEEPING AT THIS TIME. NO S/S OF RESPIRATORY DISTRESS OR DISCOMFORT NOTED AT THIS TIME. WILL CONTINUE TO MONITOR.
[2017-11-04] VITALS: BP 128/83
--- NOTE | 2017-11-04 01:04 | NUR ---
PT CONTINUES TO SLEEP. WILL CONTINUE TO MONITOR.
--- NOTE | 2017-11-04 03:17 | NUR ---
PT CONTINUES TO SLEEP. WILL CONTINUE TO MONITOR.
[2017-11-04 04:00] VITALS: BP 133/78
--- NOTE | 2017-11-04 05:00 | NUR ---
PT SLEEPING AT THIS TIME. WILL CONTINUE TO MONITOR.
[2017-11-04] MEDS: METOCLOPRAMIDE 10 MG TAB PO SCH ×2 (06:55→11:09)
[2017-11-04 07:20] LABS: BASOPHILS # (AUTO) 0.1 K/uL (0.00-0.22); BASOPHILS % (AUTO) 1.6 % (0.0-2.0); EOSINOPHILS # (AUTO) 0.1 K/uL (0-0.4); EOSINOPHILS % (AUTO) 1.9 % (0.0-4.0); HEMATOCRIT 28.5 % (36-52); HEMOGLOBIN 9.1 g/dL (12.0-18.0); LYMPHOCYTES # (AUTO) 1.4 K/uL (2.0-11.5); MEAN CORPUSCULAR HEMOGLOBIN 25 pg (27-31); MEAN CORPUSCULAR HGB CONC 32 g/dL (33-37); MEAN CORPUSCULAR VOLUME 77.7 fL (80-94); MONOCYTES # (AUTO) 0.3 K/uL (0.8-1.0); MONOCYTES % (AUTO) 6.5 % (1.7-9.3); NEUTROPHILS # (AUTO) 2.9 K/uL (1.8-7.7); PLATELET COUNT (AUTO) 92 K/uL (140-450); RED BLOOD CELL COUNT(AUTO) 3.67 MIL/uL (4.20-6.10); RED CELL DISTRIBUTION WIDTH 17.4 % (11.6-13.7); WHITE BLOOD COUNT (AUTO) 4.8 K/uL (4.8-10.8)
--- NOTE | 2017-11-04 07:20 | NUR ---
ENDORSED PT CARE TO DAY SHIFT NURSE WIL BAUMAN FOR CONTINUITY OF CARE. PT IN STABLE CONDITION.
--- NOTE | 2017-11-04 07:25 | NUR ---
RECEIVED REPORT FROM FOOTWEAR FACTORY WORKER NURSE, PT IS RESTING IN BED, SEMI FOWLERS POSITION, AAOX4, AMBULATORY, PT HAS IV ON HIS LEFT FA, PATIENT, INTACT, FLUSHING WELL, NO S/S OF RESPIRATORY DISTRESS OR DISCOMFORT NOTED, DISCUSSED PLAN OF CARE WITH PT, PT VERBALIZED UNDERSTANDING, CALL LIGHT IS WITHIN REACH, WILL CONTINUE TO MONITOR.
[2017-11-04 07:33] LABS: ALBUMIN 3.6 g/dL (3.4-5.0); ANION GAP 10.7 (8-16); CARBON DIOXIDE 28.6 mmol/L (21-32); POTASSIUM 3.3 mmol/L (3.5-5.1); TOTAL BILIRUBIN 0.9 mg/dL (0.0-1.0)
[2017-11-04 08:00] VITALS: BP 138/91
[2017-11-04] MEDS ORDERED: PANT40EC PO (08:31)
[2017-11-04] MEDS: FERROUS SULFATE 325 MG TABEC PO SCH (08:37)
[2017-11-04] MEDS: PANTOPRAZOLE 40 MG INJ VIAL IVP SCH (08:39)
--- NOTE | 2017-11-04 08:40 | NUR ---
DUE MEDICATIONS GIVEN, PT TOLERATED WELL, CALL LIGHT IS WITHIN REACH.
[2017-11-04] MEDS ORDERED: FERR-15 PO (09:36)
[2017-11-04] MEDS: DEXT 5% / NACL 0.45% 1,000 ML IV SCH (10:00)
[2017-11-04] MEDS: MULTIVITAMIN-12 10 ML, THIAMINE 100 MG, MAGNESIUM SULFATE 50% 2,000 MG, FOLIC ACID 5 MG... IV SCH ×5 (11:15)
[2017-11-04] MEDS ORDERED: POTASSIUM CHLORIDE 10 MEQ TABER PO SCH (11:30)
[2017-11-04 12:00] VITALS: BP 147/89
--- NOTE | 2017-11-04 12:30 | NUR ---
DISCHARGE INSTRUCTIONS GIVEN, ID WRIST BAND REMOVED, IV REMOVED, CATHETER TIP INTACT.
--- NOTE | 2017-11-04 12:48 | NUR ---
PT DISCHARGED AT THIS TIME. PT STABLE UPON DISCHARGE.
== END 2017-11-04 12:48 | disposition home or self-care (01) | DRG 242 ==
LOC: MED 09:00 → MTU 11:24
PROVIDERS: ADMIT Hospitalist; ATTEND Hospitalist
PROC: 0DJ08ZZ Inspection of Upper Intestinal Tract, Via Natural or Artificial Opening Endoscopic (ICD-10-PCS; principal; 2017-11-03 10:15)
DX: K22.6 Gastro-esophageal laceration-hemorrhage syndrome (principal); N17.9 Acute kidney failure, unspecified; D62 Acute posthemorrhagic anemia; F11.20 Opioid dependence, uncomplicated; K70.30 Alcoholic cirrhosis of liver without ascites; E86.0 Dehydration; K21.0 Gastro-esophageal reflux disease with esophagitis; F10.129 Alcohol abuse with intoxication, unspecified; K29.20 Alcoholic gastritis without bleeding; I10 Essential (primary) hypertension; F12.10 Cannabis abuse, uncomplicated; G89.4 Chronic pain syndrome; K44.9 Diaphragmatic hernia without obstruction or gangrene; F10.10 Alcohol abuse, uncomplicated; Y90.7 Blood alcohol level of 200-239 mg/100 ml; Z79.899 Other long term (current) drug therapy; Z90.49 Acquired absence of other specified parts of digestive tract; Z91.19 Patient's noncompliance with other medical treatment and regimen; Z71.41 Alcohol abuse counseling and surveillance of alcoholic
CPT/HCPCS: 36415; 71045; 80053; 80305; 83735; 85025; 85610; 85730; 86870; 86886; 86900; 86901; 86920; 87081; 93005; 96374; 96375; 99285; A9153; C9113; G0482; J0780; J1200; J2060; J2250; J2270; J2354; J2405; J3010; J3411; J3475; J3490; J7030; J8597; Q0092

== ENCOUNTER 2017-12-01 17:01 | Emergency (ER) | payer OTHER ==
[~2017-12-01] VITALS: Ht 190.5 cm; Wt 98.9 kg
[~2017-12-01 17:01] MED LIST changes: +ACET-9534 PO; +AMLO10TA PO; +FERR-15 PO; -FERR325E14 PO; -FOLI1TAB19 PO; +GABA300C PO; -HYDR25SU91 RC; -LACT10SO1 PO; +ORE25 PO; -SYN.025 PO; +SYN.05 PO; +TRAM50TA1 PO; -[UNRECOGNIZED DRUG - CODE] PO
[2017-12-01 17:34] VITALS: BP 124/86
--- NOTE | 2017-12-01 17:41 | NUR ---
PT AMBULATES TO BED 1
--- NOTE | 2017-12-01 17:48 | NUR ---
52/M REFERRED BY URGENT CARE FOR ELLULITIS ON LT KNEE WITH SEVERE PAIN 10/, ERYTHEMA STREAKING UP X 2 DAYS AFTER REHAB EXERCISE; DENIES CURRENT INJURY; S/P RECONSTRUCTIVE KNEE SURGERY ON AUGUST AT [facility]. AAOx4, PERRLA, BREATHING EVEN AND UNLABORED ERMD NOTIFIED OF PATIENT STATUS.
[2017-12-01] MEDS ORDERED: HYDROcodone/APAP 10/325 MG 1 TAB TAB PO STA (18:35)
[2017-12-01] MEDS ORDERED: KETOROLAC 30 MG/ML VIAL IM ONE (18:35)
[2017-12-01 19:04] LABS: BASOPHILS # (AUTO) 0.2 K/uL (0.00-0.22); HEMATOCRIT 30.6 % (36-52); HEMOGLOBIN 9.4 g/dL (12.0-18.0); LYMPHOCYTES # (AUTO) 0.6 K/uL (2.0-11.5); LYMPHOCYTES % (AUTO) 18.1 % (20.5-51.1); MEAN CORPUSCULAR HEMOGLOBIN 22 pg (27-31); MEAN CORPUSCULAR HGB CONC 31 g/dL (33-37); MEAN CORPUSCULAR VOLUME 73.3 fL (80-94); MONOCYTES # (AUTO) 0.1 K/uL (0.8-1.0); MONOCYTES % (AUTO) 2.7 % (1.7-9.3); NEUTROPHILS # (AUTO) 2.2 K/uL (1.8-7.7); NEUTROPHILS % (AUTO) 73.1 % (42.2-75.2); PLATELET COUNT (AUTO) 121 K/uL (140-450); RED BLOOD CELL COUNT(AUTO) 4.17 MIL/uL (4.20-6.10); RED CELL DISTRIBUTION WIDTH 18.4 % (11.6-13.7); WHITE BLOOD COUNT (AUTO) 3.1 K/uL (4.8-10.8)
[2017-12-01 19:05] LABS: BASOPHILS % (AUTO) 5.1 % (0.0-2.0)
--- NOTE | 2017-12-01 19:16 | NUR ---
Pt report given to DEA ELLIOTT. Transfer of care at this time.
[2017-12-01 19:17] LABS: ANION GAP 17.5 (8-16); CARBON DIOXIDE 23.6 mmol/L (21-32); POTASSIUM 4.1 mmol/L (3.5-5.1)
[2017-12-01 19:22] LABS: ALBUMIN 4.3 g/dL (3.4-5.0)
[2017-12-01 20:10] LABS: TOTAL BILIRUBIN 0.4 mg/dL (0.0-1.0)
--- NOTE | 2017-12-01 20:58 | NUR ---
Messi thompson in [facility] - 12/01/17 at 2059 by [email or web address] Cooling measures initiated for temp of 103.0 F
--- NOTE | 2017-12-01 21:32 | NUR ---
Patient made aware that ESR lab was back and that doctor would come speak with him. Patient in no acute distress, will continue to monitor closely.
[2017-12-01] MEDS ORDERED: cefTRIAXone 1,000 MG in LIDOCAINE MPF 1% - **ER/OR** 2.1 ML IM ONE (21:35)
[2017-12-01 22:10] VITALS: BP 141/85
== END 2017-12-01 22:10 | disposition home or self-care (01) ==
LOC: MED 17:01
DX: M25.462 Effusion, left knee (principal); K21.9 Gastro-esophageal reflux disease without esophagitis; Z79.899 Other long term (current) drug therapy
CPT/HCPCS: 36415; 73562; 80053; 85025; 85651; 86140; 96372; 99285; J1885; Q0092

== ENCOUNTER 2018-01-23 10:38 | Emergency (ER) | payer OTHER ==
[~2018-01-23] VITALS: Ht 190.5 cm; Wt 99.8 kg
[2018-01-23 10:49] VITALS: BP 159/115
--- NOTE | 2018-01-23 10:50 | NUR ---
PT AMBULATES TO BED 2
--- NOTE | 2018-01-23 10:56 | NUR ---
PT C/O DIFFUSE ABD PAIN 10/10, GEN WEAKNESS, AND N/V/D X 3 DAYS. PT STATES HE DRANK SEVERAL CUPS OF PRUNE JUICE 4 DAYS AGO TO HELP WITH THE CONSTIPATION, WHICH THEN RESULTED IN DIARRHEA NONSTOP FOR PAST 3 DAYS. PT PLACED ON ALL MONITORS, TACHYCARDIA AND HTN OBSERVED, DR SUAREZ NOTIFIED. PT DRY HEAVING INTO EMESIS BAG UPON ASSESSMENT. PENDING MD NOLASCO
--- NOTE | 2018-01-23 11:07 | NUR ---
DR THORNE AT BEDSIDE TO EVAL
[2018-01-23] MEDS ORDERED: METOCLOPRAMIDE 10 MG/2 ML INJ VIAL IVP ONE (11:10)
[2018-01-23] MEDS ORDERED: NACL 0.9% 1,000 ML IV ONE (11:10)
[2018-01-23] MEDS ORDERED: DIPHENOXYLATE /ATROPINE 2.5 MG TAB PO ONE (11:10)
[2018-01-23] MEDS ORDERED: PANTOPRAZOLE 40 MG INJ VIAL IVP ONE (11:10)
[2018-01-23] MEDS ORDERED: KETOROLAC 30 MG/ML VIAL IVP ONE (11:10)
[2018-01-23 11:51] LABS: BASOPHILS # (AUTO) 0.1 K/uL (0.00-0.22); BASOPHILS % (AUTO) 1.7 % (0.0-2.0); EOSINOPHILS % (AUTO) 0.8 % (0.0-4.0); HEMATOCRIT 34.2 % (36-52); HEMOGLOBIN 10.4 g/dL (12.0-18.0); LYMPHOCYTES # (AUTO) 0.7 K/uL (2.0-11.5); LYMPHOCYTES % (AUTO) 15.6 % (20.5-51.1); MEAN CORPUSCULAR HEMOGLOBIN 20 pg (27-31); MEAN CORPUSCULAR HGB CONC 31 g/dL (33-37); MEAN CORPUSCULAR VOLUME 66.6 fL (80-94); MONOCYTES # (AUTO) 0.3 K/uL (0.8-1.0); MONOCYTES % (AUTO) 7.4 % (1.7-9.3); NEUTROPHILS # (AUTO) 3.4 K/uL (1.8-7.7); NEUTROPHILS % (AUTO) 74.5 % (42.2-75.2); PLATELET COUNT (AUTO) 111 K/uL (140-450); RED BLOOD CELL COUNT(AUTO) 5.14 MIL/uL (4.20-6.10); RED CELL DISTRIBUTION WIDTH 20.3 % (11.6-13.7); WHITE BLOOD COUNT (AUTO) 4.5 K/uL (4.8-10.8)
[2018-01-23 12:08] LABS: ANION GAP 12.5 (8-16); CARBON DIOXIDE 27.2 mmol/L (21-32); CREATININE 0.9 mg/dL (0.7-1.3); POTASSIUM 3.7 mmol/L (3.5-5.1)
[2018-01-23 12:15] LABS: ALBUMIN 4.1 g/dL (3.4-5.0); TOTAL BILIRUBIN 1.3 mg/dL (0.0-1.0)
[2018-01-23 13:05] VITALS: BP 128/78
--- NOTE | 2018-01-23 13:06 | NUR ---
Patient discharged with v/s stable. Written and verbal after care instructions given and explained. Patient alert, oriented and verbalized understanding of instructions. Ambulatory with steady gait. All questions addressed prior to discharge. ID band removed. Patient advised to follow up with PMD. Rx of LOMITIL, ZOFRAN given. Patient educated on indication of medication including possible reaction and side effects. Opportunity to ask questions provided and answered.
== END 2018-01-23 13:06 | disposition home or self-care (01) ==
LOC: MED 10:38
DX: R11.2 Nausea with vomiting, unspecified (principal); R19.7 Diarrhea, unspecified; D64.9 Anemia, unspecified
CPT/HCPCS: 36415; 80053; 85025; 96361; 96374; 96375; 99284; C9113; J1885; J2765; J7030

== ENCOUNTER 2018-07-23 03:01 | Inpatient (IN) | payer OTHER ==
[~2018-07-23] VITALS: Ht 190.5 cm; Wt 95.3 kg
[2018-07-23 03:10] VITALS: BP 120/67
--- NOTE | 2018-07-23 03:10 | NUR ---
Pt ambulated to bed 11.
[2018-07-23] MEDS ORDERED: NACL 0.9% 1,000 ML IV SCH (03:11)
[2018-07-23] MEDS ORDERED: KETOROLAC 30 MG/ML VIAL IVP ONE (03:15)
[2018-07-23] MEDS ORDERED: ONDANSETRON 4 MG/2 ML VIAL IVP ONE (03:15)
--- NOTE | 2018-07-23 03:19 | NUR ---
EKG PERFORMED AT BEDSIDE. PT COVERED IN GOWN DURING PROCEDURE
--- NOTE | 2018-07-23 03:23 | NUR ---
LAB AT BEDSIDE FOR DRAW.
--- NOTE | 2018-07-23 03:24 | NUR ---
PT BIB SELF C/O VOMITING BLOOD X1 DAY W/ ABD PAIN. PT STATES HE WAS DRINKING VODKA THIS MORNING AND THATS WHEN BEGAN S/S. ABD IS ROUND, SOFT, NON TENDER, ACTIVE BS X4. PT LAYING IN BED 2 EPISODES OF VOMITING DARK RED EMESIS SINCE ARRIVAL IN ER. ER MD AWARE OF PT STATUS. PMH ALCOHOLISM, PACNREATITIS, PROSTATE CANCER.
[2018-07-23] MEDS ORDERED: PANTOPRAZOLE 40 MG INJ VIAL IVP ONE (03:50)
[2018-07-23] MEDS ORDERED: MORPHINE SULFATE 4 MG/ML SYR IVP ONE ×2 (03:50→04:50)
[2018-07-23 04:02] LABS: PROTHROMBIN TIME 14.4 secs (10.8-13.4)
[2018-07-23 04:04] LABS: ANION GAP 15.5 (8-16); CARBON DIOXIDE 26.8 mmol/L (21-32); CREATININE 0.9 mg/dL (0.7-1.3); POTASSIUM 3.3 mmol/L (3.5-5.1)
--- NOTE | 2018-07-23 04:08 | NUR ---
PT IN LAYING IN BED AWAKE, NO VOMITING NOTED SINCE ZOFRAN ADMIN, PT C/O ABD PAIN. MORPHINENOT AVAILABLE IN ER PYXIS HOUSE SUP NOTIFIED WILL FOLLOW UP.
[2018-07-23 04:09] LABS: ALBUMIN 3.6 g/dL (3.4-5.0); TOTAL BILIRUBIN 0.8 mg/dL (0.0-1.0)
[2018-07-23 04:12] LABS: BASOPHILS # (AUTO) 0.1 K/uL (0.00-0.22); BASOPHILS % (AUTO) 1.6 % (0.0-2.0); EOSINOPHILS # (AUTO) 0.1 K/uL (0-0.4); EOSINOPHILS % (AUTO) 1.9 % (0.0-4.0); HEMATOCRIT 25.7 % (36-52); HEMOGLOBIN 7.6 g/dL (12.0-18.0); LYMPHOCYTES # (AUTO) 2.4 K/uL (2.0-11.5); LYMPHOCYTES % (AUTO) 45.8 % (20.5-51.1); MEAN CORPUSCULAR HEMOGLOBIN 20 pg (27-31); MEAN CORPUSCULAR HGB CONC 30 g/dL (33-37); MONOCYTES # (AUTO) 0.5 K/uL (0.8-1.0); MONOCYTES % (AUTO) 10.3 % (1.7-9.3); NEUTROPHILS # (AUTO) 2.1 K/uL (1.8-7.7); NEUTROPHILS % (AUTO) 40.4 % (42.2-75.2); PLATELET COUNT (AUTO) 122 K/uL (140-450); RED BLOOD CELL COUNT(AUTO) 3.83 MIL/uL (4.20-6.10); WHITE BLOOD COUNT (AUTO) 5.2 K/uL (4.8-10.8)
[2018-07-23] MEDS ORDERED: MORPHINE SULFATE 4 MG/ML SYR ONE ×2 (04:16→05:06)
--- NOTE | 2018-07-23 04:30 | NUR ---
PT HAD 1 EPISODE OF EMESIS BLOODY VOMIT, ER MD MADE AWARE.
[2018-07-23 04:32] LABS: MEAN CORPUSCULAR VOLUME 67.1 fL (80-94); RED CELL DISTRIBUTION WIDTH 21.6 % (11.6-13.7)
[2018-07-23] MEDS ORDERED: PROMETHAZINE 25 MG/ML VIAL IVP ONE (04:50)
[2018-07-23] MEDS ORDERED: NACL 0.9% 1,000 ML IV ONE (04:50)
--- NOTE | 2018-07-23 05:18 | NUR ---
PT LAYING IN BED, RESTING, HOLDING PT IN ER PER HOUSE SUP., WILL CONTINUE TO MONITOR.
--- NOTE | 2018-07-23 05:35 | NUR ---
PT REFUSING NG INSERTION AT THIS TIME STATES HE HAS A "REALLY BAD GAG REFLEX AND I CANT WITH OUT SEDATION" , ER MADE AWARE AND OK WITH NOT INSERTING NG TUBE AT THIS TIME.
--- NOTE | 2018-07-23 06:10 | NUR ---
pt in bed sleeping, vss, will continue to monitor.
--- NOTE | 2018-07-23 06:42 | NUR ---
NO VOMITING NOTED SINCE PHENERGAN ADMIN, PT SLEEPING VSS.
[2018-07-23] MEDS ORDERED: ACETAMINOPHEN 325 MG TAB PO PRN (07:05)
[2018-07-23] MEDS ORDERED: LORazepam 2 MG/ML VIAL IVP PRN (07:05)
--- NOTE | 2018-07-23 07:10 | NUR ---
Pt admitted from ER at this time. Arrived to unit via wheelchair. Received report from ER nurse. Pt able to amb from wheelchair to bed with steady gait. Respirations even & nonlabored in room air. AAOx4. Pt oriented to room & unit. Verbalized understanding, able to return demonstrate proper use of call button. No c/o pain at this time. Mild dry heaving present, no emesis. Emesis bag provided. Right AC IV intact & asymptomatic. Will cont to monitor.
--- NOTE | 2018-07-23 07:14 | NUR ---
Patient will be admitted to care of DR HERNANDEZ. Admited to TELE. Will go to [id number]. Belongings list completed. Report to DEA JEAN.
[2018-07-23 07:30] VITALS: BP 140/83
[2018-07-23] MEDS: NACL 0.9% 1,000 ML IV SCH ×2 (07:34→17:05)
--- NOTE | 2018-07-23 10:00 | NUR ---
Called blood bank to f/u on PRBC for pt. Per landscape and yardwork laborer, awaiting report from [place] d/t positive antibodies. Pt currently resting comfortably in bed, respirations even & nonlabored, no episode of vomiting. Call light within reach. Will cont to monitor.
[2018-07-23] MEDS: MORPHINE SULFATE 4 MG/ML SYR IVP PRN ×3 (10:21→22:16)
--- NOTE | 2018-07-23 11:52 | NUR ---
PATIENT HAS BEEN SCREENED AND CATEGORIZED MODERATE NUTRITION RISK. PATIENT WILL BE SEEN WITHIN 3-5 DAYS OF ADMISSION. 07/25/18 07/27/[address]
[2018-07-23 12:00] VITALS: BP 123/81
--- NOTE | 2018-07-23 13:12 | NUR ---
CM NOTE PER SLICK OF [facility] (PCP) PH# [phone], PATIENT IS SCHEDULED FOR OUTPATIENT FF UP ON JULY 30, 2018 1:15PM AT THE CLINIC AT [address] [place] [address]. I GAVE THE PATIENT A COPY OG HIS OUTPATIENT FF UP SCHEDULE.
[2018-07-23 13:23] LABS: HEMOGLOBIN 6.1 g/dL (12.0-18.0)
[2018-07-23 13:24] LABS: HEMATOCRIT 20.5 % (36-52)
--- NOTE | 2018-07-23 14:50 | NUR ---
Called blood bank to f/u on PRBC. Still awaiting delivery of blood from [place]. Pt currently lying comfortably in bed, watching TV, no c/o discomfort, no SOB. Call light within reach.
--- NOTE | 2018-07-23 14:56 | NUR ---
CM NOTE CHART REVIEW DONE
[2018-07-23] MEDS ORDERED: HYDROcodone/APAP 10/325 MG 1 TAB TAB PO PRN (15:20)
[2018-07-23 16:00] VITALS: BP 124/73
[2018-07-23] MEDS ORDERED: POTASSIUM CHLORIDE 10 MEQ TABER PO SCH (16:00)
[2018-07-23] MEDS: traMADol 50 MG TAB PO SCH (16:20)
[2018-07-23] MEDS: GABAPENTIN 300 MG CAP PO SCH (16:24)
--- NOTE | 2018-07-23 17:30 | NUR ---
Initiated blood transfusion with 1unit PRBC. Pt lying comfortably in bed, aaox4, watching TV. No c/o discomfort at this time, respirations even & nonlabored in room air. Right AC IV intact & asymptomatic. RN remains at bedside for monitoring of adverse reactions.
--- NOTE | 2018-07-23 18:30 | NUR ---
Pt in bed, awake, verbally responsive, respirations even & nonlabored in room air. Reports 3/10 epigastric pain, but per pt it is tolerable at this time. Right AC IV intact with ongoing PRBC transfusion @ 100ml/hr. Call light within reach.
--- NOTE | 2018-07-23 19:20 | NUR ---
Report given to pm nurse Carol. Pt awake, verbally responsive, respirations even & nonlabored, FLACC 0. Rigth AC IV asymptomatic with ongoing blood transfusion. Call light within reach.
--- NOTE | 2018-07-23 19:25 | NUR ---
RECEIVED FROM AM RN IN BED AWAKE AND ALERT. NO SOB. DENIES PAIN. PT. IS RECEIVING PRBC #1 UNIT AT THIS TIME. NO COMPLAINTS DONE. CALL LIGHT WITH IN REACH. TELEMETRY MONITORING.
--- NOTE | 2018-07-23 20:40 | NUR ---
PRBC #1 DONE. WILL FOLLOW UP WITH PRBC #2 TO FOLLOW. NO S/S OF ADVERSE REACTIONS.
--- NOTE | 2018-07-23 21:00 | NUR ---
MD ELDRIDGE CALLED AND INQUIRED ABOUT HIS PT. GEOVANY OVERTON. AWARE OF EGD SCHEDULE TOMORROW AT 0600.
[2018-07-23] MEDS: PANTOPRAZOLE 40 MG INJ VIAL IVP SCH (21:35)
[2018-07-23 22:13] VITALS: BP 133/73
--- NOTE | 2018-07-23 22:30 | NUR ---
MEDICATED WITH MORPHINE 4 MG REQUESTED RT PT. C/O HIS ABDOMEN IN PAIN. STATED THAT HE NEEDS MORPHINE AT LEAST EVERY 4 HOURS RT HIS ADMISSION COMPLAINTS OF GI BLEED DX. "I REALLY NEED PAIN MEDICATION BECAUSE MY STOMACH HAS BEEN HURTING AND THAT IS WHY I AM HERE. " MEDICATED REQUESTED.
--- NOTE | 2018-07-23 23:33 | NUR ---
PT. WOKE UP AND WENT RESTROOM TO URINATE. A/O X 4. ROM X 4. PRBC #2 UNIT INFUSING WELL. NO S/S OF ADVERSE REACTIONS. NO COMPLAINTS DONE AT THIS TIME.
[2018-07-24] VITALS (7 sets, daily range): BP systolic 117–134; BP diastolic 44–85
[2018-07-24] MEDS ORDERED: TEMAZEPAM 15 MG CAP ONE (00:50)
--- NOTE | 2018-07-24 00:52 | NUR ---
MEDICATED WITH RESTORIL 15 MG. P.O. ORDERED AND REQUESTED BY PT. RT COMPLAINED OF UNABLE TO SLEEP. A/O X 4. REMINDED NPO FOR EGD IN A.M. "OK"
[2018-07-24] MEDS ORDERED: TEMAZEPAM 15 MG CAP PO SCH (01:30)
--- NOTE | 2018-07-24 01:57 | NUR ---
BLOOD TRANSFUSION #2 DONE. NO ADVERSE REACTIONS NOTED. VERBALIZES WELL. TELEMETRY MONITORING. CALL LIGHT WITH IN REACH.
[2018-07-24] MEDS: NACL 0.9% 1,000 ML IV SCH ×3 (03:05→23:56)
[2018-07-24 04:12] LABS: HEMATOCRIT 25.2 % (36-52); HEMOGLOBIN 7.6 g/dL (12.0-18.0)
[2018-07-24] MEDS: MORPHINE SULFATE 4 MG/ML SYR IVP PRN ×4 (04:47→22:27)
--- NOTE | 2018-07-24 04:49 | NUR ---
PT. WENT RESTROOM TO AVE BM. A/O X 4. ROM X 4. AMBULATING WELL. MEDICATED WITH PAIN RELIEVER REQUESTED BY PT. R/T ABDOMINAL PAIN.
--- NOTE | 2018-07-24 05:23 | NUR ---
PT. AWAKE AT THIS TIME. INFORMED HIM THAT HIS EGD SCHEDULE IS 0700. CONSENT SIGNED.
[2018-07-24] MEDS ORDERED: MIDAZOLAM 2 MG/2 ML VIAL ONE ×2 (05:37→05:38)
[2018-07-24] MEDS ORDERED: fentaNYL 0.05 MG/ML VIAL ONE (05:37)
[2018-07-24] MEDS: LEVOTHYROXINE 0.025 MG TAB PO SCH (05:45)
[2018-07-24] MEDS ORDERED: MIDAZOLAM 2 MG/2 ML VIAL IVP ONE (07:15)
[2018-07-24] MEDS ORDERED: fentaNYL 0.05 MG/ML VIAL IVP ONE (07:15)
--- NOTE | 2018-07-24 07:23 | NUR ---
PT. IN GI LAB. FOR EGD PROCEDURE BY MD ELDRIDGE. ENDORSED TO THE NEXT RN FOR CONTINUITY OF CARE.
--- NOTE | 2018-07-24 07:35 | NUR ---
Pt came back from EGD with biopsy to room 111B. Pt awake, verbally responsive, aaox4, c/o 4/10 epigastric pain but states it is tolerable at this time. Respirations even & nonlabored in room air. Resumed IVF NS @ 100ml/hr to right ac IV. Call light within reach.
--- NOTE | 2018-07-24 10:00 | NUR ---
Pt requesting for room change d/t loud roommate. Charge nurse notified of pt request.
[2018-07-24] MEDS: GABAPENTIN 300 MG CAP PO SCH ×3 (10:29→16:38)
[2018-07-24] MEDS: PANTOPRAZOLE 40 MG INJ VIAL IVP SCH ×2 (10:29→21:05)
[2018-07-24] MEDS: traMADol 50 MG TAB PO SCH ×3 (10:30→16:38)
--- NOTE | 2018-07-24 10:30 | NUR ---
Pt c/o 02/23 epigastric pain. Requests for Morphine. No SOB. Call light within reach. Will administer Morphine.
--- NOTE | 2018-07-24 11:00 | NUR ---
Pt transferred from room 111B to 121B. Pt reoriented to room, verbalized understanding.
[2018-07-24 11:22] LABS: BASOPHILS % (AUTO) 1.3 % (0.0-2.0); EOSINOPHILS % (AUTO) 2.3 % (0.0-4.0); HEMATOCRIT 23.3 % (36-52); HEMOGLOBIN 7.2 g/dL (12.0-18.0); LYMPHOCYTES # (AUTO) 0.4 K/uL (2.0-11.5); LYMPHOCYTES % (AUTO) 21.1 % (20.5-51.1); MEAN CORPUSCULAR HEMOGLOBIN 22 pg (27-31); MEAN CORPUSCULAR HGB CONC 31 g/dL (33-37); MEAN CORPUSCULAR VOLUME 70.8 fL (80-94); MONOCYTES # (AUTO) 0.2 K/uL (0.8-1.0); MONOCYTES % (AUTO) 11.4 % (1.7-9.3); NEUTROPHILS # (AUTO) 1.1 K/uL (1.8-7.7); NEUTROPHILS % (AUTO) 63.9 % (42.2-75.2); PLATELET COUNT (AUTO) 38 K/uL (140-450); RED CELL DISTRIBUTION WIDTH 24.7 % (11.6-13.7)
[2018-07-24 11:39] LABS: ANION GAP 15.1 (8-16); CARBON DIOXIDE 25.6 mmol/L (21-32); CREATININE 0.9 mg/dL (0.7-1.3); POTASSIUM 3.7 mmol/L (3.5-5.1); TOTAL BILIRUBIN 1.4 mg/dL (0.0-1.0)
[2018-07-24 12:19] LABS: WHITE BLOOD COUNT (AUTO) 1.8 K/uL (4.8-10.8)
--- NOTE | 2018-07-24 13:15 | NUR ---
Pt asleep at this time, respirations even & nonlabored, FLACC 0. Right ac iv asymptomatic with ongoing NS @ 100ml/hr. Call light within reach.
[2018-07-24 15:29] LABS: HEMATOCRIT 23.3 % (36-52); HEMOGLOBIN 7.1 g/dL (12.0-18.0)
--- NOTE | 2018-07-24 16:20 | NUR ---
Pt c/o 02/23 epigastric pain. Requests for morphine. Pt supine in bed, respirations even & nonlabored. Call light within reach. Will administer morphine.
--- NOTE | 2018-07-24 18:59 | NUR ---
Spoke to Ximena from blood bank re: PRBCs. Per Ximena, still waiting on deliver from [place].
--- NOTE | 2018-07-24 19:15 | NUR ---
Report given to pm nurse Carol. Pt awake, FLACC 0, respirations even & nonlabored.
--- NOTE | 2018-07-24 19:30 | NUR ---
RECEIVED FROM AM RN IN BED AWAKE AND ALERT. NO SOB. DENIES ANY PAIN. CALL LIGHT WITH IN REACH. TELEMETRY MONITORING. NO COMPLAINTS DONE AT THIS TIME. IVF SITE INTACT AND NO INFILTRATION . GOOD BLOOD RETURN. FOR PRBC BLOOD TRANSFUSION 2 UNITS ORDERED. WAITING FOR ARRIVAL OF UNITS. PT. AWARE OF ADDED PRBC. GOOD AFFECT.
[2018-07-24] MEDS ORDERED: TEMAZEPAM 15 MG CAP PO ONE (21:00)
--- NOTE | 2018-07-24 22:28 | NUR ---
PT. AWAKE AT THIS TIME AND REQUESTED FOR PAIN RELIEVER RT ABDOMINAL PAIN. MEDICATED WITH MORPHINE 4 MG. IVP. A/O X 4. ENCOURAGED TO SLEEP. WAITING STILL FOR PRBC TO BE DELIVERED BY BLOOD BANK PER LABORATORY.
--- NOTE | 2018-07-25 01:42 | NUR ---
NOTICED PT. VERY MUCH AWAKE AND WATCHING TV. ENCOURAGED TO SLEEP. BLOOD TRANSFUSION #1 PRBC STARTED AND INFUSING WELL. NEW IVF LINE INSERTED TO LEFT HAND #20 BY CHARGE NURSE RT PT. ACCIDENTALLY PULLED OUT OLD IVF TUBING FROM RAC. TIP INTCT. NO NOTED ADVERSE REACTION FROM BLOOD TRANSFUSION THAT HAS STARTED 01:30. ABLE TO VERBALIZE SIMPLE NEEDS. NO SOB.
[2018-07-25 05:16] VITALS: BP 134/72
[2018-07-25] MEDS: MORPHINE SULFATE 4 MG/ML SYR IVP PRN ×2 (05:19→11:08)
[2018-07-25] MEDS: LEVOTHYROXINE 0.025 MG TAB PO SCH (05:25)
--- NOTE | 2018-07-25 06:00 | NUR ---
BLOOD TRANSFUSION DONE AND WAITING FOR THE SECOND UNIT TO BE SCREENED BY LABORATORY STAFF RT NOT SCREENED YET WHEN I WENT TO GET SECOND UNIT. WILL ENDORSE TO THE NEXT RN FOR CONTINUITY OF CARE. AWAKE AND ALERT. NO SOB.
--- NOTE | 2018-07-25 07:28 | NUR ---
REPORT RECEIVED FROM TITLE SEARCH MANAGER NURSE, PT AWAKE ALERT RESP EVEN UNLABORED, SKIN WARM DRY COLOR WNL, NO C/O PAIN, POC REVIEWED, ALL SAFETY MEASURES IN PLACE, WILL CONTINUE TO MONTIOR.
[2018-07-25 08:00] VITALS: BP 138/72
[2018-07-25] MEDS: PANTOPRAZOLE 40 MG INJ VIAL IVP SCH (08:27)
[2018-07-25] MEDS: traMADol 50 MG TAB PO SCH ×2 (08:27→13:07)
[2018-07-25] MEDS: GABAPENTIN 300 MG CAP PO SCH ×2 (08:28→13:07)
--- NOTE | 2018-07-25 08:30 | NUR ---
AM MEDS GIVEN PT PEREZ WELL, PT PEREZ FULL LIQ DIET WELL, 90% BREAKFAST CONSUMED, PT REQUESTS REGULAR DIET, WILL CONSULT MD. DENIES ANY OTHER IMMEDIATE NEEDS AT THIS TIME.
--- NOTE | 2018-07-25 09:45 | NUR ---
BLOOD TRANSFUSION STARTED, PT MADE AWARE OF POSSIBLE BLOOD TRANSFUSION REACTIONS, CURRENT VITALS STABLE, IV SITE WNL, WILL CONTINUE TO MONITOR.
--- NOTE | 2018-07-25 10:00 | NUR ---
NO S/S OF TRANSFUSION REACTION NOTED, PT AAOX4 IN NAD, BLOOD TRANSFUSION CONTINUED.
--- NOTE | 2018-07-25 11:18 | NUR ---
PT C/O LWER ABD PAIN, MORPHINE GIVEN PER PRN ORDER, WILL CONTINUE TO MONTIOR.
[2018-07-25 12:00] VITALS: BP 124/68
--- NOTE | 2018-07-25 12:05 | NUR ---
PT PEREZ SOFT DIET WELL WITHOUT PROBLEM, NO NAUSEA, NO PAIN SWALLOWING, NO VOMITING, PT CONTINUES WITH BLOOD TRANSFUSION, WILL CONTINUE TO [facility].
--- NOTE | 2018-07-25 12:20 | NUR ---
PT STATES MORPHINE WAS EFFECTIVE FOR PAIN, STILL WITH 4/10 BUT TOLERABLE.
--- NOTE | 2018-07-25 13:05 | NUR ---
BLOOD TRANSFUSION COMPLETED, PT HAD NO S/S OF BLOOD TRANSFUSION REACTION, PT RESTING QUIETLY IN NAD, DENIES ANY BLEEDING OR BRUISING, WILL CONTINUE TO MONTIOR
--- NOTE | 2018-07-25 14:09 | NUR ---
PT RESTING QUIETLY IN NAD, RESP EVEN UNALBORED, NO PAIN, NO N/V, WILL CONTINUE TO MONTIOR.
--- NOTE | 2018-07-25 15:20 | NUR ---
ASSAYER AT BEDSIDE FOR BLOOD DRAW.
[2018-07-25] MEDS ORDERED: PANT40EC PO (15:26)
[2018-07-25 15:52] LABS: BASOPHILS % (AUTO) 1.1 % (0.0-2.0); EOSINOPHILS # (AUTO) 0.1 K/uL (0-0.4); EOSINOPHILS % (AUTO) 3.1 % (0.0-4.0); HEMATOCRIT 31.7 % (36-52); HEMOGLOBIN 9.7 g/dL (12.0-18.0); LYMPHOCYTES # (AUTO) 0.6 K/uL (2.0-11.5); LYMPHOCYTES % (AUTO) 18.9 % (20.5-51.1); MEAN CORPUSCULAR HEMOGLOBIN 23 pg (27-31); MEAN CORPUSCULAR HGB CONC 31 g/dL (33-37); MEAN CORPUSCULAR VOLUME 74.8 fL (80-94); MONOCYTES # (AUTO) 0.4 K/uL (0.8-1.0); NEUTROPHILS # (AUTO) 2.1 K/uL (1.8-7.7); NEUTROPHILS % (AUTO) 64.9 % (42.2-75.2); PLATELET COUNT (AUTO) 38 K/uL (140-450); RED BLOOD CELL COUNT(AUTO) 4.24 MIL/uL (4.20-6.10); RED CELL DISTRIBUTION WIDTH 25.4 % (11.6-13.7); WHITE BLOOD COUNT (AUTO) 3.3 K/uL (4.8-10.8)
--- NOTE | 2018-07-25 16:00 | NUR ---
DR HERNANDEZ AT BEDSIDE.
--- NOTE | 2018-07-25 16:30 | NUR ---
PT UP OUT OF BED WITHOUT PROBLEM, DENIES LIGHT HEADEDNESS, OR DIZZINESS, AMBULATES WITH STEADY GAIT, PT ESCORTED OUT TO FRONT LOBBY.
--- NOTE | 2018-07-25 16:30 | NUR ---
DC INSTRUCTION AND RX GIVEN AND EXPLAINED TO PT, PT VERBALIZED FULL UNDERSTANDING, IV DC'D, CATH TIP INTACT, BLEEDING CONTROLLED.
[2018-07-25 16:38] LABS: POTASSIUM 3.4 mmol/L (3.5-5.1)
[2018-07-25 16:39] LABS: ANION GAP 14.2 (8-16); CARBON DIOXIDE 26.2 mmol/L (21-32)
== END 2018-07-25 16:30 | disposition home or self-care (01) | DRG 242 ==
LOC: MED 03:01 → MTU 06:57
PROVIDERS: ADMIT Internal Medicine; ATTEND Internal Medicine
PROC: 30233N1 Transfusion of Nonautologous Red Blood Cells into Peripheral Vein, Percutaneous Approach (ICD-10-PCS; principal; 2018-07-23)
PROC: 0DB68ZX Excision of Stomach, Via Natural or Artificial Opening Endoscopic, Diagnostic (ICD-10-PCS; 2018-07-24)
DX: K22.6 Gastro-esophageal laceration-hemorrhage syndrome (principal); K22.11 Ulcer of esophagus with bleeding; F10.10 Alcohol abuse, uncomplicated; E03.9 Hypothyroidism, unspecified; D50.0 Iron deficiency anemia secondary to blood loss (chronic); G89.4 Chronic pain syndrome; I10 Essential (primary) hypertension; Y90.9 Presence of alcohol in blood, level not specified; K21.9 Gastro-esophageal reflux disease without esophagitis; K44.9 Diaphragmatic hernia without obstruction or gangrene; Z79.899 Other long term (current) drug therapy; Z90.49 Acquired absence of other specified parts of digestive tract
CPT/HCPCS: 36415; 71045; 80048; 80053; 83690; 84443; 85018; 85025; 85610; 85730; 86677; 86870; 86886; 86900; 86901; 86920; 87081; 93005; 96361; 96374; 96375; 99285; C9113; J1885; J2250; J2270; J2405; J2550; J3010; J7030; P9016; Q0092

== ENCOUNTER 2018-11-04 01:51 | Inpatient (IN) | payer OTHER ==
[~2018-11-04] VITALS: Ht 177.8 cm; Wt 82.6 kg
[2018-11-04] VITALS (14 sets, daily range): BP systolic 93–128; BP diastolic 11–82
--- NOTE | 2018-11-04 01:54 | NUR ---
PT TAKEN TO BED 3
--- NOTE | 2018-11-04 01:55 | NUR ---
53 Y/O M PRESENTED TO ED WITH C/O VOMITTING BLOOD, ENTIRE ABDOMINAL AND LOWER BACK PAIN. 10 PAIN, PER PT "IT FEELS LIKE SOMEONE IS SQUEEZING MY INSIDES." DARK RED EMESIS. ABDOMEN AND LOWER GUARDIAN AD LITEM TO TOUCH. DENIES HEMATURIA AND HEMATOCHEZIA. BEDRAILS X1 UP. BED IN LOWEST POSITION. ERMD NOTIFIED. WILL CONTINUE TO MONITOR.
[2018-11-04] MEDS ORDERED: NACL 0.9% 1,000 ML IV SCH (02:18)
[2018-11-04] MEDS ORDERED: ONDANSETRON 4 MG/2 ML VIAL IVP ONE (02:20)
[2018-11-04] MEDS ORDERED: PANTOPRAZOLE 40 MG INJ VIAL IVP ONE (02:20)
[2018-11-04 02:55] LABS: BASOPHILS # (AUTO) 0.1 K/uL (0.00-0.22); MONOCYTES # (AUTO) 0.7 K/uL (0.8-1.0); RED BLOOD CELL COUNT(AUTO) 4.56 MIL/uL (4.20-6.10)
[2018-11-04 03:09] LABS: BASOPHILS % (AUTO) 2.5 % (0.0-2.0); EOSINOPHILS # (AUTO) 0.1 K/uL (0-0.4); EOSINOPHILS % (AUTO) 1.2 % (0.0-4.0); HEMOGLOBIN 8.9 g/dL (12.0-18.0); LYMPHOCYTES # (AUTO) 1.5 K/uL (2.0-11.5); LYMPHOCYTES % (AUTO) 29.6 % (20.5-51.1); MEAN CORPUSCULAR HEMOGLOBIN 19 pg (27-31); MEAN CORPUSCULAR HGB CONC 31 g/dL (33-37); MEAN CORPUSCULAR VOLUME 63.6 fL (80-94); MONOCYTES % (AUTO) 13.3 % (1.7-9.3); NEUTROPHILS # (AUTO) 2.8 K/uL (1.8-7.7); NEUTROPHILS % (AUTO) 53.4 % (42.2-75.2); PLATELET COUNT (AUTO) 103 K/uL (140-450); WHITE BLOOD COUNT (AUTO) 5.2 K/uL (4.8-10.8)
[2018-11-04] MEDS ORDERED: MORPHINE SULFATE 4 MG/ML SYR IVP ONE (03:10)
[2018-11-04] MEDS ORDERED: PROMETHAZINE 25 MG/ML VIAL IVP ONE (03:10)
--- NOTE | 2018-11-04 03:10 | NUR ---
PT VOMITTED X3. EMESIS DARK RED IN COLOR. VSS. WILL CONTINUE TO MONITOR.
[2018-11-04 03:14] LABS: PROTHROMBIN TIME 17.4 secs (10.8-13.4)
[2018-11-04 03:20] LABS: ALBUMIN 3.8 g/dL (3.4-5.0); ANION GAP 15.7 (8-16); CARBON DIOXIDE 28.5 mmol/L (21-32); CREATININE 1.1 mg/dL (0.7-1.3); POTASSIUM 3.2 mmol/L (3.5-5.1); TOTAL BILIRUBIN 1.3 mg/dL (0.0-1.0)
--- NOTE | 2018-11-04 04:19 | NUR ---
Pt asleep, visible chest rise and fall noted. vss. will continue to monitor.
--- NOTE | 2018-11-04 05:00 | NUR ---
Patient will be admitted to care of Dr. Matias. Admited to ICU. Will go to room 5 Belongings list completed. Report to DEA Antunez. VSS. Transfer of care at this time.
--- NOTE | 2018-11-04 05:05 | NUR ---
RECEIVED PT FROM ER VIA RSPARKMAN; PT ABLE TO AMBULATE TO BED WITH STEADY GAIT.MONITORS ATTACHED.NSR ON MONITOR.PT ALERT AND ORIENTED X4.ON ROOM AIR.NO SOB NOTED.02SAT 97%.CLEAR LUNG SOUNDS.ABDOMEN SOFT WITH ACTIVE BOWEL SOUNDS IN ALL QUADRANTS.SKIN INTACT.NO C/O PAIN MADE AT THIS TIME.
--- NOTE | 2018-11-04 06:00 | NUR ---
PHONE CALL MADE TO DR PELAYO.MADE AWARE THAT MD HAS NEW ADMISSION IN THE UNIT.NO ORDERS YET. UPDATED ON PTS PRESENT CONDITION.NEW ORDERS RECEIVED.CARRIED OUT.
[2018-11-04] MEDS ORDERED: ONDANSETRON 4 MG/2 ML VIAL IVP PRN (06:05)
[2018-11-04] MEDS ORDERED: PANTOPRAZOLE 80 MG in NACL 0.9% 100 ML IV SCH (06:05)
--- NOTE | 2018-11-04 06:30 | NUR ---
PHONE CALL TO AFTER HOURS PHARMACY TO VERIFY NEW ORDERS. PT ASLEEP; EASILY AROUSABLE.NSR ON MONITOR.NO HEMATEMESIS NOTED AT THIS TIME.WILL CONTINUE TO CLOSELY MONITOR PT
--- NOTE | 2018-11-04 06:40 | NUR ---
NURSE AT BEDSIDE; EXPLAINED TO PT THAT MD ORDERED NGT INSERTION TO BE CONNECTED TO INTERMITTENT LOW SUCTION; PT REFUSED.EXPLAINED THE BENEFITS OF THE NGT; PT STILL REFUSING NGT PLACEMENT.WILL NOTIFY
[2018-11-04] MEDS: NACL 0.9% 1,000 ML IV SCH ×2 (06:56→16:40)
[2018-11-04] MEDS ORDERED: KCL 20 MEQ/WATER INJ PREMIX 100 ML IV SCH (07:00)
[2018-11-04] MEDS ORDERED: PANTOPRAZOLE 40 MG INJ VIAL ONE (07:14)
[2018-11-04] MEDS ORDERED: OCTREOTIDE ACETATE 1000 MCG/5 ML VIAL ONE (07:15)
--- NOTE | 2018-11-04 07:20 | NUR ---
RECEIVED REPORT FROM ROCIO MALIN. HE IS SLEEPING BUT EASILY AO AWAKE SKIN DRY WARM TO TOUCH, ON ROOM AIR O2 SAT 94% SKIN INTACT. IV # 20 ON RT. AC INFUSING NS AT 100ML/HR. AND PROTONIX AT 6MG/HR..ABD FIRM BOWEL SOUND HYPO ACTIVE PT HAS MARITZA VOID AND NO BM AT THE TIME.
--- NOTE | 2018-11-04 07:30 | NUR ---
PROTONIX IV DRIP STARTED ORDERED.
--- NOTE | 2018-11-04 08:45 | NUR ---
VOID 200 ML RRANGE CLORE IN TO URENAL.
--- NOTE | 2018-11-04 09:00 | NUR ---
C/O PAIN ABDOMEN AND BACK 04/25 , PAIN MEDICATION GIVEN ORDERED,
--- NOTE | 2018-11-04 09:05 | NUR ---
PT NAUSEA AND VOMITED ZOFRAN GIVEN ORDERED.
[2018-11-04] MEDS: MORPHINE SULFATE 4 MG/ML SYR IVP PRN ×3 (09:09→21:15)
--- NOTE | 2018-11-04 09:10 | NUR ---
DR. LOFTON CALLED ANDORDER TO OBTAIN THE CONSENT FOR EGD , HE WILL COME ABOUT 1100 AM.
--- NOTE | 2018-11-04 09:20 | NUR ---
CONSENT WAS SIGH BY PATIENT HIMSELF,
--- NOTE | 2018-11-04 09:30 | NUR ---
SANDOSTATIN IV DRIP GIVEN ORDERED,
[2018-11-04] MEDS: OCTREOTIDE ACETATE 1.25 MG in NACL 0.9% 250 ML IV SCH ×3 (09:36→10:51)
[2018-11-04 09:54] LABS: ANION GAP 12.5 (8-16); CARBON DIOXIDE 30.9 mmol/L (21-32); POTASSIUM 3.4 mmol/L (3.5-5.1)
--- NOTE | 2018-11-04 10:00 | NUR ---
K RIDER GIVEN ORDERED.
[2018-11-04 10:13] LABS: BASOPHILS # (AUTO) 0.1 K/uL (0.00-0.22); BASOPHILS % (AUTO) 1.5 % (0.0-2.0); EOSINOPHILS % (AUTO) 0.4 % (0.0-4.0); HEMATOCRIT 24.5 % (36-52); HEMOGLOBIN 7.4 g/dL (12.0-18.0); LYMPHOCYTES # (AUTO) 0.8 K/uL (2.0-11.5); LYMPHOCYTES % (AUTO) 24.9 % (20.5-51.1); MEAN CORPUSCULAR HEMOGLOBIN 19 pg (27-31); MEAN CORPUSCULAR HGB CONC 30 g/dL (33-37); MEAN CORPUSCULAR VOLUME 64.1 fL (80-94); MONOCYTES # (AUTO) 0.5 K/uL (0.8-1.0); MONOCYTES % (AUTO) 14.9 % (1.7-9.3); NEUTROPHILS % (AUTO) 58.3 % (42.2-75.2); PLATELET COUNT (AUTO) 52 K/uL (140-450); RED BLOOD CELL COUNT(AUTO) 3.82 MIL/uL (4.20-6.10); WHITE BLOOD COUNT (AUTO) 3.4 K/uL (4.8-10.8)
--- NOTE | 2018-11-04 11:00 | NUR ---
VOID 100 ML ORANGE COLORE URINE IN URENAL.
[2018-11-04] MEDS ORDERED: fentaNYL 0.05 MG/ML VIAL ONE (11:03)
[2018-11-04] MEDS ORDERED: diphenhydrAMINE 50 MG/ML VIAL ONE (11:04)
[2018-11-04] MEDS ORDERED: MIDAZOLAM 2 MG/2 ML VIAL ONE (11:04)
--- NOTE | 2018-11-04 11:20 | NUR ---
EGD WAS DONE BY DR LOFTON FOUND ULCERATIVE ESOPHAGITIS AND VISIBLE SOME BLOOD CLOT ON ULCER. HE ORDER IUNIT OF BLOOD TRANSFUSTION.
[2018-11-04] MEDS ORDERED: FERROUS SULFATE 325 MG TABEC PO SCH (12:07)
[2018-11-04] MEDS ORDERED: METOCLOPRAMIDE 10 MG/2 ML INJ VIAL IVP SCH (12:09)
[2018-11-04] MEDS ORDERED: fentaNYL 0.05 MG/ML VIAL IVP ONE (12:15)
[2018-11-04] MEDS ORDERED: MIDAZOLAM 2 MG/2 ML VIAL IVP ONE (12:15)
[2018-11-04] MEDS ORDERED: diphenhydrAMINE 50 MG/ML VIAL IVP ONE (12:15)
--- NOTE | 2018-11-04 12:20 | NUR ---
NO NAUSEA OR VOMITTING NOTE.
--- NOTE | 2018-11-04 12:30 | NUR ---
YUSEF HAS ORDER TO DOWN GRADE TO TELE.
[2018-11-04] MEDS: SODIUM FERRIC GLUCONATE 125 MG in NACL 0.9% 100 ML IV SCH (12:48)
--- NOTE | 2018-11-04 13:30 | NUR ---
VOID 100 MLORANGE IN TREVIÑO.
[2018-11-04 14:12] LABS: HEMATOCRIT 22.9 % (36-52)
[2018-11-04 14:17] LABS: HEMOGLOBIN 6.9 g/dL (12.0-18.0)
--- NOTE | 2018-11-04 15:10 | NUR ---
PT ABLE TO WALK FROM BED TO BED IN RM 112B. REPORT GIVE TO BRIDGETTE MALIN AT BED SIDE,
--- NOTE | 2018-11-04 15:10 | NUR ---
TRANSFER TO 112 B IN WHEELCHAIR. PT AWAKE AND ALERT VS, STABLE NO DISTRESS DURING TRANSFER, ,
--- NOTE | 2018-11-04 15:15 | NUR ---
PT ARRIVED ON THE UNIT WITH CHLOÉ ATHLETIC EVENTS SCORER, IN A WHEELCHAIR. PT IS AWAKE AND ORIENTED. AMBULATES WELL. IV ON RFA AND L AC 20G. SANDOSTATIN INF AT 5CC/HR. NS INFUSING AT 100ML/HR. PT IS ON NC 2L. TELE. MONITOR ON. FULL LIQ DIET. SKIN INTACT. V/S WITHIN NORMAL RANGE. C/O PAIN. WILL GIVE PAIN MEDS. WILL CONTINUE TO MONITOR PT.
--- NOTE | 2018-11-04 15:30 | NUR ---
PAGED DR PELAYO FOR LOW MAG. WILL AWAIT HIS CALL.
[2018-11-04] MEDS: WATER IV SCH ×2 (16:42→19:26)
[2018-11-04] MEDS: MAG SULF IV SCH ×2 (16:42→19:26)
--- NOTE | 2018-11-04 16:50 | NUR ---
LAB CALLED RE PT'S UNIT OF BLOOD. PT HAS AN ANTIBODY. STILL AWAITING WORD FROM BLOOD BANK.
--- NOTE | 2018-11-04 17:00 | NUR ---
STARTED A NEW IV ON THE L FA 22G. OTHER 20G INFILTRATED. 1 ATTEMPT. PT TOLERATED WELL. STARTED MAG RIDER 2G. AFTER 2 HR, WILL START 2G MORE. TOTAL 4G PER ORDER FOR LOW MAG 1.0. WILL CONTINUE TO MONITOR PT.
[2018-11-04] MEDS: FERROUS SULFATE 325 MG TABEC PO SCH (17:07)
[2018-11-04] MEDS: METOCLOPRAMIDE 10 MG/2 ML INJ VIAL IVP SCH (17:08)
--- NOTE | 2018-11-04 17:08 | NUR ---
ADMINISTERED FERROUS SULFATE AND REGLAN. PT TOLERATED WELL. WILL CONTINUE TO MONITOR PT.
[2018-11-04 17:58] LABS: HEMATOCRIT 23.5 % (36-52); HEMOGLOBIN 7.1 g/dL (12.0-18.0)
--- NOTE | 2018-11-04 19:20 | NUR ---
ENDORSED PT TO THE COPPERSMITH HELPER NURSE. PT IS IN STABLE CONDITION. SECOND BAG OF MAG RUNNING.
--- NOTE | 2018-11-04 19:21 | NUR ---
RECEIVED BEDSIDE REPORT FROM DAY SHIFT RN. MAGNESIUM AND SANDOSTATIN INFUSING. PATIENT STABLE, NO SIGNS OF DISTRESS. WILL CONTINUE TO MONITOR.
[2018-11-04] MEDS: LACTULOSE 20 GM/30 ML UDC PO SCH ×2 (21:00→21:16)
[2018-11-04] MEDS: PANTOPRAZOLE 40 MG INJ VIAL IVP SCH (21:15)
--- NOTE | 2018-11-04 21:18 | NUR ---
ADMINISTERED SCHEDULED MEDICATION, WITH THE EXCEPTION OF LACTULOSE WHICH PATIENT REFUSED. ADMINISTERED PRN PAIN MEDICATION. PATIENT TOLERATED MEDICATIONS WELL. VITALS SIGNS STABLE. NO COMPLAINT OF DIZZINESS, BUT DOES HAVE FATIGUE. WILL CONTINUE TO MONITOR.
--- NOTE | 2018-11-04 23:19 | NUR ---
SALVADOR FROM LAB CALLED THAT PRBC UNIT IS AVAILABLE FOR PATIENT FOR LOW HGB, BUT CROSSMATCH HAS NOT HAS NOT BEEN DONE BECAUSE IT WAS NOT ORDERED. SHE WILL CALL BACK ONCE ORDER IS PLACED AND CROSSMATCH IS COMPLETE. WILL CONTINUE TO MONITOR PATIENT.
[2018-11-05] VITALS (7 sets, daily range): BP systolic 102–131; BP diastolic 48–67
--- NOTE | 2018-11-05 00:25 | NUR ---
PATIENT HAD A BOWEL MOVEMENT. REPORTS THAT STOOL WAS "VERY BLACK". WILL INFORM PHYSICIAN.
[2018-11-05] MEDS: METOCLOPRAMIDE 10 MG/2 ML INJ VIAL IVP SCH ×2 (01:05→07:03)
--- NOTE | 2018-11-05 01:19 | NUR ---
LAB CALLED WITH CRITICAL VALUE, MIDNIGHT HGB IS 6.5, WILL NOTIFY PHYSICIAN.
[2018-11-05 01:20] LABS: HEMOGLOBIN 6.5 g/dL (12.0-18.0)
[2018-11-05 01:21] LABS: HEMATOCRIT 21.7 % (36-52)
--- NOTE | 2018-11-05 01:24 | NUR ---
PAGED DR SALAZAR TO INFORM HIM OF CRITICAL LAB VALUE HGB 6.5. WILL CONTINUE TO MONITOR PATIENT.
[2018-11-05] MEDS: MORPHINE SULFATE 4 MG/ML SYR IVP PRN ×2 (01:34→07:02)
--- NOTE | 2018-11-05 01:35 | NUR ---
ADMINISTERED PRN PAIN MEDICATION WILL CONTINUE TO MONITOR.
--- NOTE | 2018-11-05 01:47 | NUR ---
SALVADOR FROM LAB CALLED, PRBCS ARE AVAILABLE FOR PICK-UP, CROSSMATCH IS COMPLETE. AWAITING RETURN CALL FROM DR. SALAZAR.
--- NOTE | 2018-11-05 02:13 | NUR ---
DR. SALAZAR RETURNED MY PAGE. HE WAS MADE AWARE OF CRITICAL VALUE OF HGB 6.5. PER DR. SALAZAR HE WANTS TO WAIT UNTIL THE AM TO TRANSFUSE THE PRBCS. WILL MAKE CHARGE NURSE AWARE.
--- NOTE | 2018-11-05 02:42 | NUR ---
REVIEWED PATIENT CHART WITH CHARGE NURSE. PER CHARGE NURSE MIGUEL A, WE WILL TRANSFUSE THE PRBCS AT THIS TIME DUE TO DOWNWARD TRENDING HGB, PATIENT REPORT OF BLACK STOOL, AND ORDER IN PLACE TO TRANSFUSE.
[2018-11-05] MEDS: NACL 0.9% 1,000 ML IV SCH ×2 (03:00→13:20)
--- NOTE | 2018-11-05 03:50 | NUR ---
BLOOD TRANSFUSION STARTED AT 0340, INFUSION RUNNING AT 50CC/HR, NO SIGNS OF DISTRESS AT THIS TIME. WILL CONTINUE TO MONITOR..
--- NOTE | 2018-11-05 06:30 | NUR ---
BLOOD TRANSFUSION ENDED. NO SIGN OF REACTION. VITALS REMAINED WITHIN BASELINE LIMITS. PATIENT NO RESTING IN BED NO SIGNS OF DISTRESS.
--- NOTE | 2018-11-05 07:15 | NUR ---
RECEIVED BEDSIDE REPORT FROM CUT OUT STITCHER RN. PT AMBULATORY WITH STEADY GAIT. IV SITE INTACT PATENT INFUSING IVF PER ORDERS. NO PT DISTRESS. RESPIRATIONS EVEN, UNLABORED ON ROOM AIR. REVIEWED PLAN OF CARE WITH PATIENT. PT VERBALIZE UNDERSTANDING. SAFETY MEASURES IN PLACE. CALL LIGHT WITHIN REACH. BED IN LOWEST POSITION. WILL CONTINUE TO MONITOR.
--- NOTE | 2018-11-05 07:25 | NUR ---
GAVE BEDSIDE REPORT TO DAY SHIFT RN. WILL ENDORSE FOR CONTINUITY OF CARE. PATIENT RESTING COMFORTABLY WITH NO SIGNS OF DISTRESS.
--- NOTE | 2018-11-05 08:39 | NUR ---
PATIENT HAS BEEN SCREENED AND CATEGORIZED MODERATE NUTRITION RISK. PATIENT WILL BE SEEN WITHIN 3-5 DAYS OF ADMISSION. 11/06/18ROSY [address]
[2018-11-05] MEDS: LACTULOSE 20 GM/30 ML UDC PO SCH ×2 (09:00→20:26)
[2018-11-05] MEDS: PANTOPRAZOLE 40 MG INJ VIAL IVP SCH ×2 (09:13→20:26)
[2018-11-05] MEDS: FERROUS SULFATE 325 MG TABEC PO SCH ×3 (09:13→17:13)
[2018-11-05] MEDS: SODIUM FERRIC GLUCONATE 125 MG in NACL 0.9% 100 ML IV SCH ×3 (09:14→18:08)
--- NOTE | 2018-11-05 09:27 | NUR ---
ADMINISTERED MEDS TO PT. PT TOLERATED WELL. NO COMPLAINTS AT THIS TIME. WILL CONTINUE TO MONITOR.
[2018-11-05 09:32] LABS: EOSINOPHILS # (AUTO) 0.1 K/uL (0-0.4); EOSINOPHILS % (AUTO) 2.6 % (0.0-4.0); LYMPHOCYTES # (AUTO) 0.4 K/uL (2.0-11.5); LYMPHOCYTES % (AUTO) 21.3 % (20.5-51.1); MEAN CORPUSCULAR HEMOGLOBIN 21 pg (27-31); MEAN CORPUSCULAR HGB CONC 31 g/dL (33-37); MEAN CORPUSCULAR VOLUME 66.2 fL (80-94); MONOCYTES # (AUTO) 0.3 K/uL (0.8-1.0); MONOCYTES % (AUTO) 17.2 % (1.7-9.3); NEUTROPHILS # (AUTO) 1.1 K/uL (1.8-7.7); NEUTROPHILS % (AUTO) 56.9 % (42.2-75.2); PLATELET COUNT (AUTO) 44 K/uL (140-450); RED BLOOD CELL COUNT(AUTO) 3.32 MIL/uL (4.20-6.10); RED CELL DISTRIBUTION WIDTH 20.2 % (11.6-13.7)
[2018-11-05 09:35] LABS: HEMOGLOBIN 6.8 g/dL (12.0-18.0)
[2018-11-05 09:46] LABS: ANION GAP 9.4 (8-16); CARBON DIOXIDE 31.4 mmol/L (21-32); POTASSIUM 3.8 mmol/L (3.5-5.1)
--- NOTE | 2018-11-05 11:15 | NUR ---
called office of [facility] Do spoke to Maureen [phone] made a follow-up appointment on November 13, 2018 @ 330pm. [address] [place] [address]. I made copy of appointment schedule and given to patient. DEA Brown notified of the appointment.
[2018-11-05] MEDS ORDERED: traMADol 50 MG TAB PO PRN (11:50)
[2018-11-05] MEDS ORDERED: PHYTONADIONE 5 MG in NACL 0.9% 50 ML IV SCH (12:00)
[2018-11-05] MEDS: METOCLOPRAMIDE 10 MG TAB PO SCH ×2 (12:24→17:13)
--- NOTE | 2018-11-05 12:29 | NUR ---
PATIENT SITTING IN BED WITH COMPLAINTS OF LOWER ABD PAIN. TRAMADOL GIVEN PER MD ORDERS. OTHER SCHEDULED MEDICATIONS DUE GIVEN. WILL CONTINUE TO MONITOR.
--- NOTE | 2018-11-05 14:10 | NUR ---
1 UNIT PRBC STARTED AT THIS TIME. WILL CONTINUE TO MONITOR.
--- NOTE | 2018-11-05 17:14 | NUR ---
PATIENT LYING DOWN IN BED WATCHING TV. NO DISTRESS NOTED. PAIN WITHIN TOLERABLE. SCHEDULED MEDICATIONS DUE GIVEN. WILL CONTINUE TO MONITOR. WILL CONTINUE TO MONITOR.
--- NOTE | 2018-11-05 17:50 | NUR ---
1 UNIT PRBC TRANSFUSION COMPLETED. NO REACTIONS NOTED. FERRELICIT IV STARTED PER ORDERS. WILL CONTINUE TO MONITOR.
--- NOTE | 2018-11-05 19:26 | NUR ---
GAVE REPORT TO CLINICAL OB NURSE FOR CONTINUITY OF CARE. PATIENT IN STABLE CONDITION.
--- NOTE | 2018-11-05 19:27 | NUR ---
RECEIVED BEDSIDE REPORT FROM DAY SHIFT RN. PATIENT RESTING IN BED. BED LOW, CALL LIGHT IN REACH. NO SIGNS OF DISTRESS.
--- NOTE | 2018-11-05 20:38 | NUR ---
ADMINISTERED SCHEDULED MEDICATIONS. PATIENT TOLERATED WELL. PATIENT AMBULATED TO BATHROOM. RETURNED PATIENT TO BED AND RECONNECTED IV. MEDICATIONS INFUSING WELL. NO SIGNS OF DISTRESS ON RA. BED LOW, CALL LIGHT IN REACH. WILL CONTINUE TO MONITOR.
[2018-11-05 21:11] LABS: HEMATOCRIT 23.8 % (36-52); HEMOGLOBIN 7.4 g/dL (12.0-18.0)
[2018-11-06 00:08] VITALS: BP 112/65
== END 2018-11-06 01:06 | disposition home or self-care (01) | DRG 242 ==
LOC: MED 01:51 → MIC 04:40 → MTU 15:10
PROVIDERS: ADMIT Internal Medicine Pulmonary Disease; ATTEND Internal Medicine Pulmonary Disease
PROC: 30233N1 Transfusion of Nonautologous Red Blood Cells into Peripheral Vein, Percutaneous Approach (ICD-10-PCS; principal; 2018-11-04 11:00)
PROC: 0DJ08ZZ Inspection of Upper Intestinal Tract, Via Natural or Artificial Opening Endoscopic (ICD-10-PCS; 2018-11-05)
DX: K22.6 Gastro-esophageal laceration-hemorrhage syndrome (principal); K29.01 Acute gastritis with bleeding; K70.30 Alcoholic cirrhosis of liver without ascites; K72.90 Hepatic failure, unspecified without coma; D62 Acute posthemorrhagic anemia; K22.10 Ulcer of esophagus without bleeding; F10.10 Alcohol abuse, uncomplicated; K21.9 Gastro-esophageal reflux disease without esophagitis; K44.9 Diaphragmatic hernia without obstruction or gangrene; Z91.19 Patient's noncompliance with other medical treatment and regimen
CPT/HCPCS: 36415; 71045; 80048; 80053; 83690; 83735; 85018; 85025; 85610; 85730; 86870; 86886; 86900; 86901; 86920; 87081; 93005; 96361; 96374; 96375; 99285; C9113; J1200; J2250; J2270; J2354; J2405; J2550; J2765; J2916; J3010; J3430; J3475; J3480; J7030; J8597; P9016; Q0092

== ENCOUNTER 2018-12-30 15:44 | Inpatient (IN) | payer OTHER ==
[~2018-12-30] VITALS: Ht 190.5 cm; Wt 82.6 kg
[2018-12-30 15:53] VITALS: BP 138/84
--- NOTE | 2018-12-30 15:53 | NUR ---
PT C/O OF VOMITING AND PAIN DUE TO URINE RETENTION. PAIN 9/10 AT THIS TIME. DIFFICULTY IN PEE. HX OF PROSTRATE CA, GERD. TO SEE THE PT.
--- NOTE | 2018-12-30 15:56 | NUR ---
PT RETURNED TO LOBBY IN STABLE CONDITION
--- NOTE | 2018-12-30 16:58 | NUR ---
PATIENT AMBULATED TO BED 6.
[2018-12-30] MEDS ORDERED: NACL 0.9% 500 ML IV SCH (17:51)
[2018-12-30] MEDS ORDERED: NACL 0.9% 1,000 ML IV ONE (17:51)
[2018-12-30] MEDS ORDERED: PROMETHAZINE 25 MG/ML VIAL IM ONE (17:55)
[2018-12-30] MEDS ORDERED: ONDANSETRON 4 MG/2 ML VIAL IVP ONE (17:55)
[2018-12-30] MEDS ORDERED: MORPHINE SULFATE 4 MG/ML SYR IVP ONE (17:55)
[2018-12-30] MEDS ORDERED: LIDOCAINE JELLY 2% 30 ML TUBE TP ONE (18:13)
[2018-12-30 18:16] LABS: BASOPHILS # (AUTO) 0.1 K/uL (0.00-0.22); BASOPHILS % (AUTO) 1.4 % (0.0-2.0); EOSINOPHILS % (AUTO) 0.1 % (0.0-4.0); HEMOGLOBIN 7.4 g/dL (12.0-18.0); LYMPHOCYTES # (AUTO) 0.6 K/uL (2.0-11.5); LYMPHOCYTES % (AUTO) 15.5 % (20.5-51.1); MEAN CORPUSCULAR HEMOGLOBIN 21 pg (27-31); MEAN CORPUSCULAR HGB CONC 31 g/dL (33-37); MEAN CORPUSCULAR VOLUME 69.6 fL (80-94); MONOCYTES # (AUTO) 0.5 K/uL (0.8-1.0); MONOCYTES % (AUTO) 11.8 % (1.7-9.3); NEUTROPHILS # (AUTO) 2.7 K/uL (1.8-7.7); NEUTROPHILS % (AUTO) 71.2 % (42.2-75.2); PLATELET COUNT (AUTO) 67 K/uL (140-450); RED BLOOD CELL COUNT(AUTO) 3.45 MIL/uL (4.20-6.10); RED CELL DISTRIBUTION WIDTH 19.5 % (11.6-13.7); WHITE BLOOD COUNT (AUTO) 3.8 K/uL (4.8-10.8)
[2018-12-30 18:35] LABS: PROTHROMBIN TIME 16.4 secs (10.8-13.4)
--- NOTE | 2018-12-30 18:36 | NUR ---
# 16 FR Mcclellan catheter with 10 ml utilizing sterile technique. Immediate return of 200 ml orange urine noted. Bedside drainage bag placed below level of bladder. Urine sample collected and sent to lab. Pt tolerated procedure well.
[2018-12-30] MEDS ORDERED: MAG SULF 2000 MG/WATER PREMIX 50 ML IV ONE (18:50)
[2018-12-30] MEDS ORDERED: KCL 20 MEQ/WATER INJ PREMIX 100 ML IV ONE (18:50)
--- NOTE | 2018-12-30 19:05 | NUR ---
RE[PORT GIVEN TO DEA DAILY . PT STABLE
[2018-12-30 19:09] LABS: ANION GAP 17.1 (8-16); CARBON DIOXIDE 26.4 mmol/L (21-32); CREATININE 1.5 mg/dL (0.7-1.3); POTASSIUM 3.5 mmol/L (3.5-5.1); TOTAL BILIRUBIN 2.2 mg/dL (0.0-1.0)
--- NOTE | 2018-12-30 19:28 | NUR ---
PT DENIES TAKING ANY MEDICATIONS AT HOME. PT STATES HE HAS BEEN OUT OF MEDS FOR A MONTH.
[2018-12-30 19:48] LABS: APPEARANCE,URINE HAZY (CLEAR); BILIRUBIN,URINE 2+ (NEGATIVE); BLOOD, URINE 2+ (NEGATIVE); COLOR,URINE BROWN (YELLOW); LEUKOCYTE ESTERASE ,URINE TRACE (NEGATIVE); NITRITE, URINE NEGATIVE (NEGATIVE); UGLUCOSE NEGATIVE (NEGATIVE)
--- NOTE | 2018-12-30 19:50 | NUR ---
PT STATES PAIN RETURNING. 12/24. NO N/V. ALERT TO NAME, TIME, PLACE, EVENT. HR 78. POSITIONED IN BED FOR COMFORT. CONTINUE TO MONITOR.
[2018-12-30] MEDS ORDERED: MORPHINE SULFATE 4 MG/ML SYR IM ONE (20:05)
[2018-12-30 20:08] LABS: RBC,URINE 20-50 /HPF (0-5); WBC,URINE 0-5 /HPF (0-5)
[2018-12-30] MEDS ORDERED: LEVOFLOXACIN 500 MG/D5W PREMIX 100 ML IV ONE (20:30)
--- NOTE | 2018-12-30 20:50 | NUR ---
PT STATES PAIN AND NAUSEA RELIEVED. IN BED AWAKE WITH VSS. CONTINUE TO MONITOR.
--- NOTE | 2018-12-30 21:30 | NUR ---
REPORT GIVEN AND CARE TRNASFERED TO EMMANUEL MALIN ROOM 106B. TRANSFERED VIA [place] WITH VSS.
--- NOTE | 2018-12-30 22:00 | NUR ---
PAGED PHYSICIAN OFFICE NURSE DR Pan BARBER FOR PT ORDERS. WAITING FOR CALL BACK.
--- NOTE | 2018-12-30 22:10 | NUR ---
A SUNIL TELEPHONE ORDER- REGULAR DIET. TYPE AND CROSS TO TRANSFUSE 2 UNITS OF PRBC'S. LAST LAB HGB 7.4 HCT 24.0. TYLENOL 650MG PO Q6H PRN. ZOFRAN 4MG IVP Q6H PRN.
[2018-12-30] MEDS ORDERED: ACETAMINOPHEN 325 MG TAB PO PRN (22:40)
[2018-12-30] MEDS: ONDANSETRON 4 MG/2 ML VIAL IVP PRN (23:21)
--- NOTE | 2018-12-30 23:28 | NUR ---
BEDSIDE REPORT GIVEN BY ER NURSE ANDRADE. PT A/O X4 ABLE TO MAKE NEEDS KNOWN. TRANSFERRED VIA GURNEY. AMBULATORY. STEADY GAIT. ROOM AIR. BARONE CATH IN PLACE. 37.5 ML LEFT OF LEVAQUIN STILL INFUSING FROM ED. L HAND 22G. R FA 22 G SALINE LOCK. IV SITES PATENT AND INTACT. SKIN IS INTACT. CLOTHES IN BAG ARE WITH PATIENT. BED IN LOW POSITION. CALL LIGHT WITHIN REACH. WILL CONTINUE TO MONITOR. Addendum: 12/31/18 at 0004 by Gabriela Love RN WRONG TIME. 2130 IS CORRECT TIME.
[2018-12-31] VITALS: BP 123/87
--- NOTE | 2018-12-31 01:12 | NUR ---
PT IS WATCHING TV. NO SIGNS OF DISTRESS. BED IN LOW POSITION. CALL LIGHT WITHIN REACH. WILL CONTINUE TO MONITOR.
--- NOTE | 2018-12-31 03:10 | NUR ---
PT REQUESTED PAIN MEDS. PAIN ON ABD 3/10 ADULT PAIN SCALE. MEDICATED WITH TYLENOL PRN. EDUCATED ON SIDE EFFECTS. VERBALIZED UNDERSTANDING. TOLERATED WELL. WILL CONTINUE TO MONITOR AND REASSESS.
--- NOTE | 2018-12-31 05:13 | NUR ---
PT SLEEPING IN BED NO SIGNS OF DISTRESS OR DISCOMFORT. NO COMPLAINTS AT THIS TIME. WILL CONTINUE TO MONITOR.
--- NOTE | 2018-12-31 06:19 | NUR ---
WILL ENDORSE PT TO DAY SHIFT RN. PT IS IN STABLE CONDITION. A/O X 4 ABLE TO MAKE NEEDS KNOWN. CALL LIGHT WITHIN REACH.
--- NOTE | 2018-12-31 07:21 | NUR ---
RECEIVED REPORT AT PT BEDSIDE FROM STRIPPER OPAQUER RN. PT A/O X4 ABLE TO MAKE NEEDS KNOWN. PT IS AMBULATORY WITH STEADY GAIT. PT ON ROOM AIR WITH NO S/S OF SOB OR DISTRESS. BARONE CATH IN PLACE. PT HAS L HAND 22G SALINE LOCKED. INTACT AND PATENT AND R FA 22 G SALINE LOCK ALSO INTACT AND PATENT. SKIN IS INTACT. PERSONAL BELONGINGS AT BEDSIDE WITH PATIENT. DISCUSSED POC WITH PT. PT VERBALIZED UNDERSTANDING. BED IN LOW POSITION. CALL LIGHT WITHIN REACH. WILL MONITOR PT FREQUENTLY.
[2018-12-31 08:00] VITALS: BP 133/72
--- NOTE | 2018-12-31 08:46 | NUR ---
PATIENT HAS BEEN SCREENED AND CATEGORIZED HIGH NUTRITION RISK. PATIENT WILL BE SEEN WITHIN 1-2 DAYS OF ADMISSION. 12/31/18-01/01/[address]
--- NOTE | 2018-12-31 09:37 | NUR ---
PT RESTING IN BED. PT DENIES PAIN AND SOB AT THIS TIME. WILL CONTINUE TO ROUND FREQUENTLY ON PT. BED IN LOW POSITION, CALL LIGHT WITHIN REACH.
--- NOTE | 2018-12-31 11:42 | NUR ---
PT RESTING IN BED. NO COMPLAINTS OF PAIN OR DISTRESS NOTED. WILL CONTINUE TO ROUND FREQUENTLY ON PT.
--- NOTE | 2018-12-31 13:46 | NUR ---
CALLED OFFICE OF DR ANGELA MART, , SPOKE WITH SEAN, FOLLOW-UP APPOINTMENT MADE ON 01/07/19 AT 130PM AT [address] [place] [id number]. APPOINTMENT COPY GIVEN TO PATIENT, VERBALIZED UNDERSTANDING. DEA ELLIOTT NOTIFIED.
--- NOTE | 2018-12-31 13:46 | NUR ---
PT RESTING IN BED. NO SIGNS OF PAIN OR DISTRESS NOTED. WILL ROUND FREQUENTLY. BED IN LOW POSITION, CALL LIGHT WITHIN REACH.
[2018-12-31] MEDS ORDERED: TAMSULOSIN 0.4 MG CAP PO SCH (14:30)
[2018-12-31] MEDS ORDERED: FINASTERIDE 5 MG TAB PO SCH (14:30)
--- NOTE | 2018-12-31 14:32 | NUR ---
PER CHIEF SCIENTIST INÉS TAYLOR, PT ALREADY HAS UROLOGIST. PT HAS NO INFORMATION FOR DR SO INÉS TAYLOR CALLED PT'S MOTHER SASKIA GUERRA TO GET SPECIALIST INFO. INFO GIVEN BY PT MOTHER: DR. EUSEBIA CARTAGENA, # . I CALLED TO SCHEDULE APPOINTMENT FOR PT BUT PHONE NUMBER WAS NOT AVAILABLE. WILL ENDORSE TO [facility] CENTER OPERATOR FOR FOLLOW-UP WITH CASE MANAGEMENT.
--- NOTE | 2018-12-31 15:29 | NUR ---
PT SLEEPING IN BED. ADMINISTERED SCHEDULED MEDS. PT TOLERATED WELL. WILL CONTINUE TO ROUND FREQUENTLY ON PT.
--- NOTE | 2018-12-31 15:58 | NUR ---
CALLED JIE ANDREWS [facility] [phone] AND LEFT MESSAGE FOR OUTPATIENT UROLOGY REFERRAL, WAITING FOR CALL BACK.
[2018-12-31 16:00] VITALS: BP 132/84
--- NOTE | 2018-12-31 16:01 | NUR ---
BARONE DC'D AT 1600 PER 'S ORDERS. PATIENT TOLERATED REMOVAL WELL. AWAITING TO SEE IF PT CAN VOID WITHIN 8HRS. IF PT DOES NOT VOID THEN BARONE NEEDS TO BE REINSERTED.
--- NOTE | 2018-12-31 16:07 | NUR ---
[facility], CALLED BACK AND STATED THAT PATIENT BEEN SEEN BY UROLOGIST AT [facility] AND HAD SURGERY AND RECEIVED RADIATION THERE. PER [facility], PATIENT COULD GO BACK THERE FOR FOLLOW-UP AND IF NEEDS ANOTHER AUTHORIZATION, HIS DOCTOR COULD REQUEST. DEA ELLIOTT NOTIFIED.
--- NOTE | 2018-12-31 16:23 | NUR ---
CALLED MOTHER SASKIA GUERRA [phone] TO GET INFO OF UROLOGIST AT [facility], PER SASKIA HIS UROLOGIST AT [facility] IS DR MARTIR WALTON, , ENDORSED TO DEA ELLIOTT TO FOLLOW-UP.
--- NOTE | 2018-12-31 17:44 | NUR ---
PT EATING DINNER. NO COMPLAINTS OF PAIN OR DISTRESS. WILL CONTINUE TO ROUND ON PT. BED IN LOW POSITION, CALL LIGHT WITHIN REACH.
--- NOTE | 2018-12-31 18:27 | NUR ---
PT EXHIBITING CHANGES IN MENTAL STATUS. PT KNOWS HIS NAME AND BUT IS CONFUSED WITH WHERE HE IS AND WHY HE IS HERE. I REORIENTED PT TO [facility]ITY. PAGED AND AWAITING CALLBACK.
--- NOTE | 2018-12-31 18:36 | NUR ---
RECEIVED CALL BACK FROM . I TOLD DR ABOUT PT CHANGE IN CONDITION, DR SAID ITS POSSIBLE DELIRIUM FROM BEING IN HOSPITAL AND TO WATCH PT FOR FURTHER CHANGES. PT IS AAOX2 AT THIS TIME.
--- NOTE | 2018-12-31 19:32 | NUR ---
CALLED DR. MARTIN THROUGH ANSWERING SERVICE [facility]. WILL WAIT FOR CALL
--- NOTE | 2018-12-31 19:43 | NUR ---
ENDORSED PT TO OYSTER WORKER FOR CONTINUITY OF CARE. PT IN STABLE CONDITION AT THIS TIME. AAOX2, AWARE. OYSTER WORKER RN ALEXIS AWARE TO WATCH PT MENTAL STATUS FOR CHANGES AND NOTIFY MD IF NEEDED.
--- NOTE | 2018-12-31 19:44 | NUR ---
RECEIVED AMBULATORY, PT IS CONFUSED, CANNOT REMEMBER SHORT TERM EVENTS PER PREVIOUS NURSE STARTED 6 PM. W/ LEFT HAND G 22, R HAND G 22, SALINE LOCK. BLOOD PER PREVIOUS NURSE-HOLD PER ' ORDER. PT IS ANXIOUS, WILL CALL FOR AN ORDER. POC REVIEWED. W/ BROTHER AT BEDSIDE. REORIENTED PT FROM TIME TO TIME. PT KEEPS ON FORGETTING. CALL LIGHT W/IN REACH.
[2018-12-31 20:00] VITALS: BP 130/80
--- NOTE | 2018-12-31 20:50 | NUR ---
CALLED DR. MARTIN THROUGH ANSWERING SERVICE [facility] 2ND TIME WILL WAIT FOR CALL
--- NOTE | 2018-12-31 20:58 | NUR ---
DR. MARTIN CALLED BACK AND INFORMED HIM, NO PEE SINCE 1600H (PER PREVIOUS SHIFT), PT HAVING DELIRIUM AND HE ORDERED HALDOL 2 MG EVRY 4 HRS PRN . HE SAID IF NO PEE IN 8 HRS, INSERT AGAIN THE BARONE CATH. NO BLOOD TONIGHT TO BE GIVEN. Addendum: 12/31/18 at 210 by Ashlyn Mccallum RN HALDOL 2 MG EVERY 6 HRS. CANCEL EVERY 4 HRS
--- NOTE | 2018-12-31 21:00 | NUR ---
INFORMED BLOOD BANK TO HOLD THE BLOOD PER 'S ORDER [facility] INFORMED
--- NOTE | 2018-12-31 21:00 | NUR ---
PER 'S ORDER INFORMED SHANDA;YN, LAB
[2018-12-31] MEDS ORDERED: HALOPERIDOL IM 5 MG/ML VIAL IM PRN ×2 (21:05→21:20)
--- NOTE | 2018-12-31 21:07 | NUR ---
PT IN TELEMETRY BECAUSE PT IS ON HALDOL AND THAT ONCE PT IS ON HALDOL BEC RISK OF CARDIAC ARRYTHMIAS, PER HOSPITAL'S PROTOCOL WILL BE ON TELEMETRY
--- NOTE | 2018-12-31 23:00 | NUR ---
PER CHARGE NURSE, PT HAD 1 URINE OUTPUT. TRIED TO ASK PATIENT, BUT PT CONFUSED CAN'T RECALL ANY URINE OUTPUT NOR ANY SHORT TERM EVENTS
--- NOTE | 2018-12-31 23:17 | NUR ---
GOT AN ORDER FROM DR. MARTIN; TO PUT HIM ON TELEMETRY DUE TO HALDOL ORDER
--- NOTE | 2018-12-31 23:18 | NUR ---
INFORMED CHARGE NURSE THAT PT SHALL BE ON TELE, MONITOR AND ASSEMBLER ENGINE INFORMED.
--- NOTE | 2019-01-01 | NUR ---
NOT SURE IF PT REALLY VOIDED SINCE PT CANNOT RECALL EVENTS.TRIED TO PUT IN BARONE CATHETER NO URINE OUTPUT DRAINAGE NOTED AND PT C/O OF 10/10 PAIN WHILE INSERTING BARONE CATHETER WITHDRAWN. PALPATED PT'S LOWER ABDOMEN, NON-DISTENDED. WILL CONTINUE TO MONITOR.
--- NOTE | 2019-01-01 | NUR ---
8 HRS NO URINE OUTPUT PER DR. MARTIN'S ORDER RE-INSERT BARONE CATHETER. BARONE CATHETER INSERTED, PT TOLERATED WELL. WILL MONITOR Addendum: 01/01/19 at 0109 by Ashlyn Mccallum RN DA SPRAGUE
[2019-01-01 04:00] VITALS: BP 147/75
--- NOTE | 2019-01-01 04:15 | NUR ---
PT VOIDED 1 X 200 ML,DARK BROWN(BLOOD) URINE
--- NOTE | 2019-01-01 06:35 | NUR ---
PT STILL CONFUSED, AMBULATORY, AWAKE, ALERT X 1. PT CALLED BROTHER TO LEAVE A MESSAGE, BROTHER MERVIN NOT ANSWERING. PT ANXIOUS WOULD WANT TO GO HOME. EXPLAINED TO PT THAT HE HAS TO WAIT FOR THE DRRomero AND FOR HIS FAMILY. NO SOB, NO RESPIRATORY DISTRESS AT THIS TIME
--- NOTE | 2019-01-01 06:37 | NUR ---
PT GETTING ANXIOUS, STILL DOES NOT KNOW WHY HE IS THE HOSPITAL. DESPITE NUMEROUS ATTEMPTS TO EXPLAIN TO HIM. PT ASKS THE SAME QUESTION. WILL ENFORSE TO NEXT SHIFT THAT WAITING FOR 'S D/C ORDER IF PT HAS AN URINE OUTPUT. WILL INFORM THROUGH NEXT SHIFT 200 ML TOTAL URINE OUTPUT W/IN 12 HRS Addendum: 01/01/19 at 0640 by Ashlyn Mccallum RN DELETE W/IN 24 HRS. PT MIGHT HAVE PEED EARLIER BUT PT HAS SHORT TERM MEMORY LOSS, DOES NOT REMEMBER IF HE HAD URINE OUTPUT
--- NOTE | 2019-01-01 07:20 | NUR ---
RECEIVED REPORT FROM PRESSER MACHINE NURSE. PATIENT SITTING IN BED. AAOX3, VERY FORGETFUL, SKIN COLOR APPROPRIATE TO ETHNICITY, WARM TO TOUCH. SKIN INTACT. RESPIRATIONS EVEN, UNLABORED, ON ROOM AIR. IV SITES INTACT, PATENT, AND ON SALINE LOCK. PER PRESSER MACHINE RN, PATIENT VOIDED 200 ML DARK URINE LAST NIGHT IN URINAL. ABDOMEN SOFT, NON-DISTENDED. REVIEWED PLAN OF CARE WITH PATIENT. PATIENT VERBALIZED UNDERSTANDING. SAFETY MEASURES IN PLACE, CALL LIGHT WITHIN REACH. WILL CONTINUE TO MONITOR.
[2019-01-01 08:00] VITALS: BP 127/71
--- NOTE | 2019-01-01 08:16 | NUR ---
PATIENT VOIDED 150 ML DARK URINE IN URINAL. WILL CONTINUE TO MONITOR.
[2019-01-01] MEDS ORDERED: TAMSULOSIN 0.4 MG CAP PO SCH (08:30)
[2019-01-01] MEDS ORDERED: FINASTERIDE 5 MG TAB PO SCH (09:00)
[2019-01-01] MEDS: ONDANSETRON 4 MG/2 ML VIAL IVP PRN (09:01)
--- NOTE | 2019-01-01 09:06 | NUR ---
PATIENT SITTING DOWN IN BED TALKING WITH FAMILY MEMBERS AT BEDSIDE. NO DISTRESS NOTED. COMPLAINS OF NAUSEA, ZOFRAN GIVEN AT THIS TIME. OTHER SCHEDULED MEDICATIONS DUE GIVEN. WILL CONTINUE TO MONITOR.
--- NOTE | 2019-01-01 10:51 | NUR ---
CALLED [facility] [phone] SPOKE WITH JIMMY, APPOINTMENT MADE ON JANUARY 18, 2019, AT 935 AM AT [address] [facility] [id number], [place] [address]. COPY OF FOLLOW-UP APPOINTMENT GIVEN TO PATIENT, DEA RIVERA NOTIFIED.
--- NOTE | 2019-01-01 11:41 | NUR ---
INSTRUCTED PATIENT TO BRING ALL DISCHARGE PAPERWORKS TO [facility] UPON VISIT TO DR MORROW. INSTRUCTED PATIENT ALSO TO MENTION TO DR Mackenzie MART ON HIS FOLLOW-UP VISIT ON 01/07/19 THAT HE HAS AN APPOINTMENT WITH [facility] UROLOGIST ON 01/18/19 JUST IN CASE REFERRAL AUTHORIZATION IS NEEDED, PATIENT VERBALIZED UNDERSTANDING. DEA RIVERA NOTIFIED TO REINFORCE UPON DISCHARGE.
[2019-01-01 12:00] VITALS: BP 121/69
[2019-01-01] MEDS ORDERED: LEVO750T2 PO (13:03)
[2019-01-01] MEDS ORDERED: FINA5TAB1 PO (13:03)
[2019-01-01] MEDS ORDERED: TAMS0.4C96 PO (13:03)
--- NOTE | 2019-01-01 13:15 | NUR ---
DISCHARGE INSTRUCTIONS PROVIDED TO PATIENT/FAMILY AT BEDSIDE IN PREFERRED LANGUAGE OF [place] ISLANDER. INSTRUCTIONS PROVIDED ON NEW MEDICATION REGIMEN AND SIDE EFFECTS, DIET REGIMEN, AND DISEASE PROCESS/MANAGEMENT OF BPH. ANSWERED ALL OF PATIENT/FAMILY QUESTIONS REGARDING DISCHARGE. PATIENT/FAMILY VERBALIZED COMPLETE UNDERSTANDING. IV SITE REMOVED WITH MINIMAL BLOOD AND LUMEN COMPLETELY INTACT. ALL BELONGINGS WITH PATIENT. PRESCRIPTIONS WITH PATIENT. ESCORTED PATIENT TO LOBBY VIA STEADY AMBULATION. PATIENT DISCHARGED TO HOME AT THIS TIME IN STABLE CONDITION.
== END 2019-01-01 13:15 | disposition home or self-care (01) | DRG 463 ==
LOC: MED 15:44 → MTU 20:41
PROVIDERS: ADMIT Internal Medicine Pulmonary Disease; ATTEND Internal Medicine Pulmonary Disease
DX: N39.0 Urinary tract infection, site not specified (principal); N17.1 Acute kidney failure with acute cortical necrosis; D64.9 Anemia, unspecified; R31.9 Hematuria, unspecified; K21.9 Gastro-esophageal reflux disease without esophagitis; N40.0 Benign prostatic hyperplasia without lower urinary tract symptoms; Z85.9 Personal history of malignant neoplasm, unspecified
CPT/HCPCS: 36415; 80053; 81001; 82150; 83690; 83735; 84550; 85025; 85610; 86870; 86886; 86900; 86901; 86920; 87081; 96365; 96366; 96368; 96372; 96375; 96376; 99285; J1630; J1956; J2270; J2405; J2550; J3475; J7030

== ENCOUNTER 2019-03-14 00:42 | Inpatient (IN) | payer OTHER ==
[2019-03-14] VITALS (11 sets, daily range): BP systolic 89–129; BP diastolic 52–85
[~2019-03-14] VITALS: Ht 190.5 cm; Wt 90.7 kg
[~2019-03-14 00:42] MED LIST changes: -ACET-9534 PO; -AMLO10TA PO; -FERR-15 PO; +FINA5TAB1 PO; -GABA300C PO; +LEVO750T2 PO; -ORE25 PO; -PANT40EC PO; -SYN.05 PO; +TAMS0.4C96 PO; -TRAM50TA1 PO
[2019-03-14] MEDS ORDERED: NACL 0.9% 1,000 ML IV ONE (01:00)
[2019-03-14] MEDS ORDERED: ONDANSETRON 4 MG/2 ML VIAL IVP ONE (01:00)
[2019-03-14] MEDS ORDERED: KETOROLAC 30 MG/ML VIAL IVP ONE (01:00)
[2019-03-14] MEDS ORDERED: NACL 0.9% 500 ML IV SCH (01:04)
[2019-03-14] MEDS ORDERED: MORPHINE SULFATE 4 MG/ML SYR IVP ONE (01:05)
[2019-03-14] MEDS ORDERED: PANTOPRAZOLE 40 MG INJ VIAL IVP ONE (01:05)
[2019-03-14 01:34] LABS: WHITE BLOOD COUNT (AUTO) 5.1 K/uL (4.8-10.8)
[2019-03-14 01:43] LABS: ANION GAP 16.1 (8-16); BASOPHILS # (AUTO) 0.2 K/uL (0.00-0.22); BASOPHILS % (AUTO) 4.3 % (0.0-2.0); CARBON DIOXIDE 25.8 mmol/L (21-32); CREATININE 0.9 mg/dL (0.7-1.3); EOSINOPHILS # (AUTO) 0.1 K/uL (0-0.4); EOSINOPHILS % (AUTO) 1.2 % (0.0-4.0); HEMATOCRIT 20.8 % (36-52); LYMPHOCYTES # (AUTO) 2.2 K/uL (2.0-11.5); LYMPHOCYTES % (AUTO) 42.7 % (20.5-51.1); MEAN CORPUSCULAR HEMOGLOBIN 19 pg (27-31); MEAN CORPUSCULAR HGB CONC 30 g/dL (33-37); MONOCYTES # (AUTO) 0.4 K/uL (0.8-1.0); MONOCYTES % (AUTO) 7.9 % (1.7-9.3); NEUTROPHILS # (AUTO) 2.3 K/uL (1.8-7.7); NEUTROPHILS % (AUTO) 43.9 % (42.2-75.2); POTASSIUM 3.9 mmol/L (3.5-5.1); RED BLOOD CELL COUNT(AUTO) 3.24 MIL/uL (4.20-6.10)
[2019-03-14 01:50] LABS: ALBUMIN 2.6 g/dL (3.4-5.0); TOTAL BILIRUBIN 0.9 mg/dL (0.0-1.0)
[2019-03-14 01:52] LABS: PROTHROMBIN TIME 16.8 secs (10.8-13.4)
[2019-03-14 02:01] LABS: HEMOGLOBIN 6.2 g/dL (12.0-18.0); PLATELET COUNT (AUTO) 64 K/uL (140-450); RED CELL DISTRIBUTION WIDTH 22.9 % (11.6-13.7)
[2019-03-14] MEDS ORDERED: DEXT 5% / NACL 0.9% 500 ML IV SCH (02:35)
[2019-03-14] MEDS ORDERED: MAG SULF 2000 MG/WATER PREMIX 50 ML IV PRN (02:40)
[2019-03-14] MEDS ORDERED: ALUMINUM HYD/MAG/SIMETHICONE 30 ML UDC PO PRN (02:40)
[2019-03-14] MEDS ORDERED: POTASSIUM CHLORIDE 10 MEQ TABER PO PRN (02:40)
[2019-03-14] MEDS ORDERED: ACETAMINOPHEN 650 MG SUPP RC PRN (02:40)
[2019-03-14] MEDS ORDERED: ACETAMINOPHEN 325 MG TAB PO PRN (02:40)
[2019-03-14] MEDS ORDERED: HYDROcodone/APAP 5/325 MG 1 TAB TAB PO PRN (02:40)
[2019-03-14] MEDS ORDERED: LORazepam 2 MG/ML VIAL IVP PRN (02:40)
[2019-03-14] MEDS ORDERED: guaiFENesin DM 200/20 MG-10 ML 10 ML UDC PO PRN (02:40)
[2019-03-14] MEDS ORDERED: ALBUTEROL 0.083% 2.5 MG/3 ML NEBU INH PRN (02:40)
[2019-03-14] MEDS ORDERED: MAGNESIUM OXIDE 400 MG TAB PO PRN (02:40)
[2019-03-14] MEDS ORDERED: IPRATROPIUM 0.02% 0.5 MG/2.5 ML NEBU INH PRN (02:40)
[2019-03-14] MEDS ORDERED: ZOLPIDEM 5 MG TAB PO PRN (02:40)
[2019-03-14] MEDS ORDERED: cloNIDine 0.1 MG TAB PO PRN (02:40)
[2019-03-14] MEDS ORDERED: SODIUM PHOSPHATE 118 ML ENEM RC PRN (02:40)
[2019-03-14] MEDS ORDERED: BISACODYL 10 MG SUPP RC PRN (02:40)
[2019-03-14] MEDS ORDERED: POTASSIUM CHLORIDE 40 MEQ, LIDOCAINE 1% 25 MG in NACL 0.9% 250 ML IV PRN (02:40)
[2019-03-14] MEDS ORDERED: diphenhydrAMINE 50 MG/ML VIAL IVP PRN (02:40)
[2019-03-14] MEDS ORDERED: DOCUSATE SODIUM 250 MG GELCAP PO PRN (02:40)
[2019-03-14] MEDS: ONDANSETRON 4 MG/2 ML VIAL IVP PRN ×2 (03:35→09:09)
[2019-03-14] MEDS: MORPHINE SULFATE 2 MG/ML SYR IVP PRN ×5 (03:56→20:46)
[2019-03-14] MEDS ORDERED: PANTOPRAZOLE 80 MG in NACL 0.9% 100 ML IV SCH (04:00)
[2019-03-14] MEDS ORDERED: OCTREOTIDE ACETATE 1.25 MG in NACL 0.9% 250 ML IV SCH (04:00)
[2019-03-14] MEDS ORDERED: PANTOPRAZOLE 40 MG INJ VIAL ONE (04:03)
[2019-03-14] MEDS ORDERED: OCTREOTIDE ACETATE 1000 MCG/5 ML VIAL ONE (04:37)
[2019-03-14] MEDS ORDERED: METOCLOPRAMIDE 10 MG/2 ML INJ VIAL IVP PRN (09:45)
[2019-03-14 10:27] LABS: BASOPHILS # (AUTO) 0.1 K/uL (0.00-0.22); BASOPHILS % (AUTO) 3.8 % (0.0-2.0); LYMPHOCYTES # (AUTO) 0.7 K/uL (2.0-11.5); LYMPHOCYTES % (AUTO) 20.7 % (20.5-51.1); MEAN CORPUSCULAR HEMOGLOBIN 20 pg (27-31); MEAN CORPUSCULAR HGB CONC 30 g/dL (33-37); MONOCYTES # (AUTO) 0.2 K/uL (0.8-1.0); MONOCYTES % (AUTO) 7.5 % (1.7-9.3); NEUTROPHILS # (AUTO) 2.2 K/uL (1.8-7.7); PLATELET COUNT (AUTO) 47 K/uL (140-450); RED BLOOD CELL COUNT(AUTO) 2.68 MIL/uL (4.20-6.10); RED CELL DISTRIBUTION WIDTH 22.4 % (11.6-13.7); WHITE BLOOD COUNT (AUTO) 3.2 K/uL (4.8-10.8)
[2019-03-14 11:02] LABS: HEMATOCRIT 17.4 % (36-52); HEMOGLOBIN 5.2 g/dL (12.0-18.0)
[2019-03-14] MEDS: ALBUMIN HUMAN 25% 100 ML IV SCH ×2 (13:10→20:44)
[2019-03-14] MEDS ORDERED: fentaNYL 0.05 MG/ML VIAL ONE (13:14)
[2019-03-14] MEDS ORDERED: MIDAZOLAM 2 MG/2 ML VIAL ONE (13:14)
[2019-03-14] MEDS ORDERED: diphenhydrAMINE 50 MG/ML VIAL ONE (13:15)
[2019-03-14] MEDS ORDERED: PROPRANOLOL 1 MG/ML VIAL IVP SCH (14:19)
[2019-03-14] MEDS: PROPRANOLOL 1 MG/ML VIAL IVP ONE ×2 (14:20→14:36)
[2019-03-14] MEDS ORDERED: ONDANSETRON 4 MG/2 ML VIAL ONE (14:47)
[2019-03-14] MEDS ORDERED: IRON SUCROSE COMPLEX 100 MG/5 ML VIAL IVP SCH (15:00)
[2019-03-14] MEDS ORDERED: ONDANSETRON 4 MG/2 ML VIAL IVP SCH (15:00)
[2019-03-14] MEDS ORDERED: EPINEPHrine PFS 0.1 MG/ML SYR IVP ONE (15:06)
[2019-03-14] MEDS: DEXT 5% /NACL 0.9% 1,000 ML IV SCH ×2 (16:03→20:37)
[2019-03-14] MEDS: FERROUS SULFATE 325 MG TABEC PO SCH (17:07)
[2019-03-14] MEDS: METOCLOPRAMIDE 10 MG TAB PO SCH (17:08)
[2019-03-14] MEDS: LORazepam 2 MG/ML VIAL IVP SCH ×2 (17:08→23:47)
[2019-03-14] MEDS ORDERED: PNEUMOCOCCAL VACCINE 23 MCG/0.5 ML VIAL IMVAC SCH (17:35)
[2019-03-14] MEDS: PANTOPRAZOLE 40 MG INJ VIAL IVP SCH (20:43)
[2019-03-14] MEDS: LACTULOSE 20 GM/30 ML UDC PO SCH (20:43)
[2019-03-14] MEDS: ONDANSETRON 4 MG/2 ML VIAL IVP SCH (21:51)
[2019-03-14] MEDS: IRON SUCROSE COMPLEX 100 MG/5 ML VIAL IVP SCH (22:15)
[2019-03-14] MEDS: HYDROcodone/APAP 5/325 MG 1 TAB TAB PO PRN (23:47)
[2019-03-15] VITALS (12 sets, daily range): BP systolic 124–155; BP diastolic 65–99
[2019-03-15] MEDS: DEXT 5% /NACL 0.9% 1,000 ML IV SCH ×3 (01:24→18:29)
[2019-03-15] MEDS: ONDANSETRON 4 MG/2 ML VIAL IVP SCH ×3 (04:38→21:11)
[2019-03-15] MEDS: LORazepam 2 MG/ML VIAL IVP SCH ×3 (06:51→21:11)
[2019-03-15] MEDS: METOCLOPRAMIDE 10 MG TAB PO SCH ×3 (06:53→17:25)
[2019-03-15] MEDS: ALBUMIN HUMAN 25% 100 ML IV SCH (06:54)
[2019-03-15] MEDS: FERROUS SULFATE 325 MG TABEC PO SCH ×3 (07:43→17:25)
[2019-03-15] MEDS: MULTIVITAMIN/MINERALS 1 TAB PO SCH (08:58)
[2019-03-15] MEDS: PANTOPRAZOLE 40 MG INJ VIAL IVP SCH ×2 (08:58→21:07)
[2019-03-15] MEDS: THIAMINE 100 MG TAB PO SCH (08:58)
[2019-03-15] MEDS: LACTULOSE 20 GM/30 ML UDC PO SCH (08:58)
[2019-03-15] MEDS: FOLIC ACID 1 MG TAB PO SCH (08:59)
[2019-03-15] MEDS: IRON SUCROSE COMPLEX 100 MG/5 ML VIAL IVP SCH ×2 (08:59→21:13)
[2019-03-15 09:32] LABS: APPEARANCE,URINE CLEAR (CLEAR); BILIRUBIN,URINE NEGATIVE (NEGATIVE); BLOOD, URINE NEGATIVE (NEGATIVE); COLOR,URINE YELLOW (YELLOW); LEUKOCYTE ESTERASE ,URINE NEGATIVE (NEGATIVE); NITRITE, URINE NEGATIVE (NEGATIVE); PH,URINE 6.5 (5.0-9.0); UGLUCOSE NEGATIVE (NEGATIVE)
[2019-03-15 09:57] LABS: BASOPHILS % (AUTO) 1.7 % (0.0-2.0); EOSINOPHILS % (AUTO) 0.7 % (0.0-4.0); HEMATOCRIT 20.7 % (36-52); LYMPHOCYTES # (AUTO) 0.4 K/uL (2.0-11.5); LYMPHOCYTES % (AUTO) 19.9 % (20.5-51.1); MEAN CORPUSCULAR HEMOGLOBIN 23 pg (27-31); MEAN CORPUSCULAR HGB CONC 32 g/dL (33-37); MEAN CORPUSCULAR VOLUME 72.2 fL (80-94); MONOCYTES # (AUTO) 0.2 K/uL (0.8-1.0); MONOCYTES % (AUTO) 11.4 % (1.7-9.3); NEUTROPHILS # (AUTO) 1.3 K/uL (1.8-7.7); NEUTROPHILS % (AUTO) 66.3 % (42.2-75.2); RED BLOOD CELL COUNT(AUTO) 2.86 MIL/uL (4.20-6.10); RED CELL DISTRIBUTION WIDTH 25.7 % (11.6-13.7)
[2019-03-15 10:00] LABS: HEMOGLOBIN 6.5 g/dL (12.0-18.0); PLATELET COUNT (AUTO) 19 K/uL (140-450); WHITE BLOOD COUNT (AUTO) 1.9 K/uL (4.8-10.8)
[2019-03-15 10:05] LABS: ANION GAP 14.5 (8-16); CARBON DIOXIDE 24.2 mmol/L (21-32); CREATININE 1.1 mg/dL (0.7-1.3); POTASSIUM 3.7 mmol/L (3.5-5.1); TOTAL BILIRUBIN 2.1 mg/dL (0.0-1.0)
[2019-03-15] MEDS ORDERED: CALCIUM CHLORIDE 10% 1,000 MG in NACL 0.9% 100 ML IV SCH (11:30)
[2019-03-15] MEDS ORDERED: PHYTONADIONE 10 MG/ML AMP SUBQ SCH (17:00)
[2019-03-16] VITALS (9 sets, daily range): BP systolic 106–128; BP diastolic 58–90
[2019-03-16] MEDS: HYDROcodone/APAP 5/325 MG 1 TAB TAB PO PRN (02:09)
[2019-03-16] MEDS: DEXT 5% /NACL 0.9% 1,000 ML IV SCH (03:48)
[2019-03-16] MEDS: ONDANSETRON 4 MG/2 ML VIAL IVP SCH ×3 (04:48→21:07)
[2019-03-16] MEDS: LORazepam 2 MG/ML VIAL IVP SCH ×3 (04:49→21:08)
[2019-03-16] MEDS: METOCLOPRAMIDE 10 MG TAB PO SCH ×3 (07:05→16:36)
[2019-03-16] MEDS: FERROUS SULFATE 325 MG TABEC PO SCH ×3 (08:44→16:36)
[2019-03-16] MEDS: MULTIVITAMIN/MINERALS 1 TAB PO SCH (08:44)
[2019-03-16] MEDS: PANTOPRAZOLE 40 MG INJ VIAL IVP SCH ×2 (08:44→21:07)
[2019-03-16] MEDS: THIAMINE 100 MG TAB PO SCH (08:44)
[2019-03-16] MEDS: FOLIC ACID 1 MG TAB PO SCH (08:45)
[2019-03-16] MEDS: IRON SUCROSE COMPLEX 100 MG/5 ML VIAL IVP SCH ×2 (08:45→21:07)
[2019-03-16] MEDS: LACTULOSE 20 GM/30 ML UDC PO SCH (08:45)
[2019-03-16 10:04] LABS: BASOPHILS # (AUTO) 0.1 K/uL (0.00-0.22); EOSINOPHILS # (AUTO) 0.1 K/uL (0-0.4); EOSINOPHILS % (AUTO) 2.4 % (0.0-4.0); HEMOGLOBIN 7.9 g/dL (12.0-18.0); LYMPHOCYTES # (AUTO) 0.6 K/uL (2.0-11.5); MEAN CORPUSCULAR HEMOGLOBIN 24 pg (27-31); MEAN CORPUSCULAR HGB CONC 33 g/dL (33-37); MEAN CORPUSCULAR VOLUME 73.3 fL (80-94); MONOCYTES # (AUTO) 0.3 K/uL (0.8-1.0); PLATELET COUNT (AUTO) 21 K/uL (140-450); RED BLOOD CELL COUNT(AUTO) 3.28 MIL/uL (4.20-6.10); RED CELL DISTRIBUTION WIDTH 25.7 % (11.6-13.7); WHITE BLOOD COUNT (AUTO) 2.9 K/uL (4.8-10.8)
[2019-03-16 10:40] LABS: ANION GAP 11.4 (8-16); CARBON DIOXIDE 25.9 mmol/L (21-32); CREATININE 0.9 mg/dL (0.7-1.3); POTASSIUM 3.3 mmol/L (3.5-5.1)
[2019-03-16 10:53] LABS: LYMPHOCYTES % (AUTO) 18.8 % (20.5-51.1); MONOCYTES % (AUTO) 10.1 % (1.7-9.3); NEUTROPHILS % (AUTO) 66.7 % (42.2-75.2)
[2019-03-16 10:57] LABS: ALBUMIN 2.8 g/dL (3.4-5.0); TOTAL BILIRUBIN 3.1 mg/dL (0.0-1.0)
[2019-03-16 14:46] LABS: PROTHROMBIN TIME 16.5 secs (10.8-13.4)
[2019-03-16] MEDS: LORazepam 2 MG/ML VIAL IVP PRN (17:55)
[2019-03-17] VITALS: BP 132/86
[2019-03-17 04:00] VITALS: BP 140/72
[2019-03-17] MEDS: ONDANSETRON 4 MG/2 ML VIAL IVP SCH ×3 (05:07→20:29)
[2019-03-17] MEDS: LORazepam 2 MG/ML VIAL IVP SCH ×3 (05:07→20:29)
[2019-03-17] MEDS: DEXT 5% /NACL 0.9% 1,000 ML IV SCH (05:57)
[2019-03-17 06:56] LABS: BASOPHILS % (AUTO) 1.2 % (0.0-2.0); EOSINOPHILS # (AUTO) 0.1 K/uL (0-0.4); EOSINOPHILS % (AUTO) 2.3 % (0.0-4.0); HEMATOCRIT 22.6 % (36-52); HEMOGLOBIN 7.3 g/dL (12.0-18.0); LYMPHOCYTES # (AUTO) 0.4 K/uL (2.0-11.5); MEAN CORPUSCULAR HEMOGLOBIN 24 pg (27-31); MEAN CORPUSCULAR HGB CONC 32 g/dL (33-37); MEAN CORPUSCULAR VOLUME 73.2 fL (80-94); MONOCYTES # (AUTO) 0.3 K/uL (0.8-1.0); NEUTROPHILS # (AUTO) 1.7 K/uL (1.8-7.7); PLATELET COUNT (AUTO) 23 K/uL (140-450); RED BLOOD CELL COUNT(AUTO) 3.08 MIL/uL (4.20-6.10); RED CELL DISTRIBUTION WIDTH 26.5 % (11.6-13.7); WHITE BLOOD COUNT (AUTO) 2.5 K/uL (4.8-10.8)
[2019-03-17] MEDS: METOCLOPRAMIDE 10 MG TAB PO SCH ×3 (06:58→17:05)
[2019-03-17 07:35] LABS: ALBUMIN 2.9 g/dL (3.4-5.0); ANION GAP 12.9 (8-16); CARBON DIOXIDE 22.3 mmol/L (21-32); CREATININE 0.8 mg/dL (0.7-1.3); POTASSIUM 3.2 mmol/L (3.5-5.1); TOTAL BILIRUBIN 2.3 mg/dL (0.0-1.0)
[2019-03-17 08:07] LABS: LYMPHOCYTES % (AUTO) 15.7 % (20.5-51.1); MONOCYTES % (AUTO) 12.2 % (1.7-9.3); NEUTROPHILS % (AUTO) 68.6 % (42.2-75.2)
[2019-03-17 08:24] LABS: PROTHROMBIN TIME 15.1 secs (10.8-13.4)
[2019-03-17] MEDS: PANTOPRAZOLE 40 MG INJ VIAL IVP SCH ×2 (08:35→20:29)
[2019-03-17] MEDS: MULTIVITAMIN/MINERALS 1 TAB PO SCH (08:35)
[2019-03-17] MEDS: FERROUS SULFATE 325 MG TABEC PO SCH ×3 (08:35→17:05)
[2019-03-17] MEDS: LACTULOSE 20 GM/30 ML UDC PO SCH (08:35)
[2019-03-17] MEDS: FOLIC ACID 1 MG TAB PO SCH (08:35)
[2019-03-17] MEDS: IRON SUCROSE COMPLEX 100 MG/5 ML VIAL IVP SCH ×2 (08:35→20:29)
[2019-03-17] MEDS: THIAMINE 100 MG TAB PO SCH (08:36)
[2019-03-17 08:45] VITALS: BP 140/80
[2019-03-17] MEDS: LORazepam 2 MG/ML VIAL IVP PRN (11:45)
[2019-03-17 12:05] VITALS: BP 137/76
[2019-03-17 12:48] LABS: ANION GAP 12.9 (8-16); CARBON DIOXIDE 23.5 mmol/L (21-32); CREATININE 0.9 mg/dL (0.7-1.3); POTASSIUM 3.4 mmol/L (3.5-5.1); TOTAL BILIRUBIN 2.4 mg/dL (0.0-1.0)
[2019-03-17] MEDS: MULTIVITAMIN-12 10 ML, THIAMINE 100 MG, FOLIC ACID 1 MG, MAGNESIUM SULFATE 50% 2,000 MG... IV SCH ×5 (13:40)
[2019-03-17 16:25] VITALS: BP 130/73
[2019-03-17 19:45] LABS: EOSINOPHILS # (AUTO) 0.1 K/uL (0-0.4); HEMOGLOBIN 7.6 g/dL (12.0-18.0); LYMPHOCYTES # (AUTO) 0.4 K/uL (2.0-11.5); MONOCYTES # (AUTO) 0.4 K/uL (0.8-1.0); NEUTROPHILS # (AUTO) 1.8 K/uL (1.8-7.7); WHITE BLOOD COUNT (AUTO) 2.7 K/uL (4.8-10.8)
[2019-03-17 19:56] LABS: BASOPHILS % (AUTO) 0.9 % (0.0-2.0); EOSINOPHILS % (AUTO) 2.1 % (0.0-4.0); HEMATOCRIT 23.9 % (36-52); LYMPHOCYTES % (AUTO) 15.3 % (20.5-51.1); MEAN CORPUSCULAR HEMOGLOBIN 24 pg (27-31); MEAN CORPUSCULAR HGB CONC 32 g/dL (33-37); MEAN CORPUSCULAR VOLUME 74.5 fL (80-94); MONOCYTES % (AUTO) 15.4 % (1.7-9.3); NEUTROPHILS % (AUTO) 66.3 % (42.2-75.2); PLATELET COUNT (AUTO) 26 K/uL (140-450); RED CELL DISTRIBUTION WIDTH 26.2 % (11.6-13.7)
[2019-03-17 20:00] VITALS: BP 119/68
[2019-03-18] VITALS: BP 127/70
[2019-03-18] MEDS: HYDROcodone/APAP 5/325 MG 1 TAB TAB PO PRN ×2 (02:56→08:09)
[2019-03-18 04:00] VITALS: BP 102/55
[2019-03-18] MEDS: ONDANSETRON 4 MG/2 ML VIAL IVP SCH ×2 (04:35→12:03)
[2019-03-18] MEDS: LORazepam 2 MG/ML VIAL IVP SCH ×2 (04:36→12:03)
[2019-03-18] MEDS: METOCLOPRAMIDE 10 MG TAB PO SCH ×2 (06:34→11:41)
[2019-03-18 08:00] VITALS: BP 117/74
[2019-03-18] MEDS: PANTOPRAZOLE 40 MG INJ VIAL IVP SCH (08:08)
[2019-03-18] MEDS: LACTULOSE 20 GM/30 ML UDC PO SCH (08:08)
[2019-03-18] MEDS: THIAMINE 100 MG TAB PO SCH (08:09)
[2019-03-18] MEDS: FOLIC ACID 1 MG TAB PO SCH (08:09)
[2019-03-18] MEDS: MULTIVITAMIN/MINERALS 1 TAB PO SCH (08:09)
[2019-03-18] MEDS: FERROUS SULFATE 325 MG TABEC PO SCH ×2 (08:09→11:41)
[2019-03-18] MEDS: IRON SUCROSE COMPLEX 100 MG/5 ML VIAL IVP SCH (09:26)
[2019-03-18 10:24] LABS: HEMATOCRIT 22.9 % (36-52); HEMOGLOBIN 7.3 g/dL (12.0-18.0); MEAN CORPUSCULAR HEMOGLOBIN 24 pg (27-31); RED BLOOD CELL COUNT(AUTO) 3.03 MIL/uL (4.20-6.10)
[2019-03-18 10:29] LABS: MEAN CORPUSCULAR HGB CONC 32 g/dL (33-37); MEAN CORPUSCULAR VOLUME 75.7 fL (80-94); RED CELL DISTRIBUTION WIDTH 25.7 % (11.6-13.7)
[2019-03-18 10:33] LABS: WHITE BLOOD COUNT (AUTO) 2.1 K/uL (4.8-10.8)
[2019-03-18 10:34] LABS: PLATELET COUNT (AUTO) 25 K/uL (140-450)
[2019-03-18 10:45] LABS: BASOPHILS % (MANUAL) 1 % (0-2); EOSINOPHILS % (MANUAL) 2 % (0-4); LYMPHOCYTES % (MANUAL) 16 % (20-46); MONOCYTES % (MANUAL) 18 % (5-12)
[2019-03-18 11:10] LABS: ANION GAP 13.1 (8-16); CARBON DIOXIDE 23.1 mmol/L (21-32); POTASSIUM 3.2 mmol/L (3.5-5.1)
[2019-03-18 11:11] LABS: CREATININE 0.9 mg/dL (0.7-1.3)
[2019-03-18 11:14] LABS: ALBUMIN 2.7 g/dL (3.4-5.0)
[2019-03-18] MEDS: MULTIVITAMIN-12 10 ML, THIAMINE 100 MG, FOLIC ACID 1 MG, MAGNESIUM SULFATE 50% 2,000 MG... IV SCH ×5 (11:46)
[2019-03-18 12:00] VITALS: BP 136/74
[2019-03-18] MEDS ORDERED: FER325 PO (13:14)
== END 2019-03-18 14:50 | disposition home or self-care (01) | DRG 242 ==
LOC: MED 00:42 → MTU 02:17 → MIC 08:40 → MTU 03-16 16:45
PROVIDERS: ADMIT Internal Medicine Pulmonary Disease; ATTEND Internal Medicine Pulmonary Disease
PROC: 3E0234Z Introduction of Serum, Toxoid and Vaccine into Muscle, Percutaneous Approach (ICD-10-PCS; 2019-03-14)
PROC: 30233N1 Transfusion of Nonautologous Red Blood Cells into Peripheral Vein, Percutaneous Approach (ICD-10-PCS; 2019-03-14)
PROC: 0W3P8ZZ Control Bleeding in Gastrointestinal Tract, Via Natural or Artificial Opening Endoscopic (ICD-10-PCS; principal; 2019-03-14 13:30)
PROC: 30233R1 Transfusion of Nonautologous Platelets into Peripheral Vein, Percutaneous Approach (ICD-10-PCS; 2019-03-15)
PROC: 30233K1 Transfusion of Nonautologous Frozen Plasma into Peripheral Vein, Percutaneous Approach (ICD-10-PCS; 2019-03-16)
DX: K22.11 Ulcer of esophagus with bleeding (principal); K22.6 Gastro-esophageal laceration-hemorrhage syndrome; E44.0 Moderate protein-calorie malnutrition; R65.10 Systemic inflammatory response syndrome (SIRS) of non-infectious origin without acute organ dysfunction; C61 Malignant neoplasm of prostate; D62 Acute posthemorrhagic anemia; K70.30 Alcoholic cirrhosis of liver without ascites; K70.9 Alcoholic liver disease, unspecified; K21.9 Gastro-esophageal reflux disease without esophagitis; K44.9 Diaphragmatic hernia without obstruction or gangrene; I10 Essential (primary) hypertension; F10.10 Alcohol abuse, uncomplicated; Z23 Encounter for immunization; Z68.25 Body mass index [BMI] 25.0-25.9, adult; Z92.3 Personal history of irradiation; Z90.49 Acquired absence of other specified parts of digestive tract
CPT/HCPCS: 36415; 71045; 80053; 81003; 82140; 82948; 83690; 83735; 85025; 85610; 85730; 86870; 86886; 86900; 86901; 86920; 87081; 90732; 93005; 96361; 96374; 96375; 99285; A9153; C9113; J0171; J0696; J1200; J1756; J1800; J1885; J2001; J2060; J2250; J2270; J2354; J2405; J2765; J3010; J3411; J3430; J3475; J3480; J3490; J7030; J7042; J7060; J8597; P9016; P9017; P9035; P9046; Q0092

== ENCOUNTER 2019-05-02 15:10 | Emergency (ER) | payer OTHER ==
[~2019-05-02] VITALS: Ht 190.5 cm; Wt 83.9 kg
[~2019-05-02 15:10] MED LIST changes: +FER325 PO; -FINA5TAB1 PO; -LEVO750T2 PO; -TAMS0.4C96 PO
--- NOTE | 2019-05-02 15:14 | NUR ---
PT AMBULATED TO ER BED 04
[2019-05-02 15:17] VITALS: BP 135/83
--- NOTE | 2019-05-02 15:25 | NUR ---
PT C/O RECTAL BLEEDING X 3 DAYS ACCOMPANIED WITH LOWER ABDOMINAL PAIN GRABBING 10/10. PT HAS COMPLETED 40 RADIATION TRETMENTS FOR PROSTATE CANCER. REPORTS HX OF HEMORRHOIDS AND DID HEMORRHOIDS REMOVAL LAST YEAR. PT STATES "EVER SINCE THE DOCTOR DOES THE HEMORRHOIDS REMOVAL SURGERY, THE NONSTOP RECTAL BEELING WILL BE ON AND OFF." DENIES N/V/D, CONSTIPATION, OR FEVER AT THIS TIME. VSS; PATIENT POSITIONED FOR COMFORT; HOB ELEVATED; BEDRAILS UP X1; BED DOWN. ER MD MADE AWARE OF PT STATUS.
[2019-05-02] MEDS ORDERED: MORPHINE SULFATE 4 MG/ML SYR IVP ONE (16:15)
[2019-05-02] MEDS ORDERED: ONDANSETRON 4 MG/2 ML VIAL IVP ONE (16:15)
[2019-05-02] MEDS ORDERED: MULTIVITAMIN-12 10 ML, THIAMINE 100 MG, MAGNESIUM SULFATE 50% 2,000 MG, FOLIC ACID 5 MG... IV ONE ×5 (16:15)
[2019-05-02] MEDS ORDERED: PANTOPRAZOLE 40 MG INJ VIAL IVP ONE (16:15)
--- NOTE | 2019-05-02 16:50 | NUR ---
PT IS TAKING TO CT SCAN VIA WHEELCHAIR ASSISTED BY RESEARCH GROUP DIRECTOR.
[2019-05-02 16:56] LABS: BASOPHILS # (AUTO) 0.1 K/uL (0.00-0.22); BASOPHILS % (AUTO) 3.2 % (0.0-2.0); EOSINOPHILS # (AUTO) 0.1 K/uL (0-0.4); EOSINOPHILS % (AUTO) 2.3 % (0.0-4.0); HEMATOCRIT 33.3 % (36-52); HEMOGLOBIN 10.9 g/dL (12.0-18.0); LYMPHOCYTES # (AUTO) 1.3 K/uL (2.0-11.5); LYMPHOCYTES % (AUTO) 35.8 % (20.5-51.1); MEAN CORPUSCULAR HEMOGLOBIN 27 pg (27-31); MEAN CORPUSCULAR HGB CONC 33 g/dL (33-37); MEAN CORPUSCULAR VOLUME 82.3 fL (80-94); MONOCYTES # (AUTO) 0.3 K/uL (0.8-1.0); MONOCYTES % (AUTO) 8.8 % (1.7-9.3); NEUTROPHILS # (AUTO) 1.9 K/uL (1.8-7.7); NEUTROPHILS % (AUTO) 49.9 % (42.2-75.2); PLATELET COUNT (AUTO) 103 K/uL (140-450); RED BLOOD CELL COUNT(AUTO) 4.05 MIL/uL (4.20-6.10); RED CELL DISTRIBUTION WIDTH 20.4 % (11.6-13.7); WHITE BLOOD COUNT (AUTO) 3.7 K/uL (4.8-10.8)
--- NOTE | 2019-05-02 17:00 | NUR ---
Patient returned from CT scan. RN re-evaluating patient at bedside.
[2019-05-02 17:20] LABS: APPEARANCE,URINE CLEAR (CLEAR); BILIRUBIN,URINE NEGATIVE (NEGATIVE); BLOOD, URINE NEGATIVE (NEGATIVE); COLOR,URINE YELLOW (YELLOW); LEUKOCYTE ESTERASE ,URINE NEGATIVE (NEGATIVE); NITRITE, URINE NEGATIVE (NEGATIVE); UGLUCOSE NEGATIVE (NEGATIVE)
[2019-05-02 17:22] LABS: PROTHROMBIN TIME 13.2 secs (10.8-13.4)
[2019-05-02 17:24] LABS: ALBUMIN 3.2 g/dL (3.4-5.0); ANION GAP 12.5 (8-16); CARBON DIOXIDE 28.2 mmol/L (21-32); CREATININE 0.6 mg/dL (0.7-1.3); POTASSIUM 3.7 mmol/L (3.5-5.1); TOTAL BILIRUBIN 0.6 mg/dL (0.0-1.0)
--- NOTE | 2019-05-02 17:25 | NUR ---
XRAY IS AT BEDSIDE.
[2019-05-02 17:26] LABS: BARBITURATE, URINE NEG. ng/ml (NEG <=200); BENZODIAZEPINE, URINE NEG. ng/mL (NEG <=200); CANNABINOID, URINE NEG. ng/mL (NEG <=50); COCAINE, URINE NEG. ng/mL (NEG <=300); OPIATE, URINE NEG. ng/mL (NEG <=2000); PHENCYCLIDINE SCREEN,URINE NEG. ng/mL (NEG <=25)
--- NOTE | 2019-05-02 17:30 | NUR ---
PT STATES HAVING 10/[address] WANG NOTIFIED.
--- NOTE | 2019-05-02 18:55 | NUR ---
PT AMBULATED TO THE BATHROOM WITH STEADY GAIT.
--- NOTE | 2019-05-02 18:55 | NUR ---
AMBULATORY TO RESTROOM WITHOUT ASSITANCE. STEADY GAIT.
--- NOTE | 2019-05-02 19:11 | NUR ---
RECEIVED REPORT FROM DEA MORENO. TRANSFER OF CARE AT THIS TIME. PT STABLE.
--- NOTE | 2019-05-02 19:12 | NUR ---
Pt report given to DEA Peck. Transfer of care at this time.
[2019-05-02 19:34] VITALS: BP 122/81
--- NOTE | 2019-05-02 19:34 | NUR ---
Patient discharged with v/s stable. Written and verbal after care instructions given and explained. Patient alert, oriented and verbalized understanding of instructions. Ambulatory with to home. All questions addressed prior to discharge. ID band removed. Patient advised to follow up with PMD. Rx of PROTONIX AND BENTYL given. Patient educated on indication of medication including possible reaction and side effects. Opportunity to ask questions provided and answered.
== END 2019-05-02 19:34 | disposition home or self-care (01) ==
LOC: MED 15:10
DX: S00.511A Abrasion of lip, initial encounter (principal); F10.20 Alcohol dependence, uncomplicated; K64.4 Residual hemorrhoidal skin tags; R10.9 Unspecified abdominal pain; K21.9 Gastro-esophageal reflux disease without esophagitis; Z91.19 Patient's noncompliance with other medical treatment and regimen; Z85.46 Personal history of malignant neoplasm of prostate; Z90.49 Acquired absence of other specified parts of digestive tract; Z98.890 Other specified postprocedural states; Z79.899 Other long term (current) drug therapy; X58.XXXA Exposure to other specified factors, initial encounter; Y93.89 Activity, other specified; Y92.89 Other specified places as the place of occurrence of the external cause; Y99.8 Other external cause status
CPT/HCPCS: 36415; 71045; 74176; 80053; 80305; 81003; 82150; 83690; 85025; 85610; 85730; 86870; 86886; 86900; 86901; 96365; 96366; 96375; 99284; A9153; C9113; G0482; J2270; J2405; J3411; J3475; J3490; J7030

== ENCOUNTER 2019-05-11 14:31 | Emergency (ER) | payer OTHER ==
[~2019-05-11] VITALS: Ht 190.5 cm; Wt 83.9 kg
[2019-05-11 14:32] VITALS: BP 130/97
--- NOTE | 2019-05-11 14:42 | NUR ---
W/C ASSISTED TO BED 04.
[2019-05-11] MEDS ORDERED: KETOROLAC 30 MG/ML VIAL IM ONE (14:50)
--- NOTE | 2019-05-11 14:54 | NUR ---
63/M BIB MOTHER. CAME IN WITH BLEEDING TOE, STATED HE DROPPED A BRICK ON HIS FOOT YESTERDAY, THERE WAS NO BLEEDING AT TIME OF INCIDENT. TODAY HE STATED TOE BEGAN TO BLEED. VSS. PAIN IS A 04/25. X-RAY AT BEDSIDE. PMHX: GERD, CANCER RX: DENIES
[2019-05-11] MEDS ORDERED: LIDOCAINE 2% 1000 MG/50 ML VIAL INJ ONE (15:40)
--- NOTE | 2019-05-11 15:57 | NUR ---
PA GAVE LIDOCAINE. EMT AT BEDSIDE CLEANING WOUND.
[2019-05-11 16:20] VITALS: BP 130/97
--- NOTE | 2019-05-11 16:20 | NUR ---
Patient discharged with v/s stable. Written and verbal after care instructions given and explained. Patient alert, oriented and verbalized understanding of instructions. Wheel Chair Assisted with to car. All questions addressed prior to discharge. ID band removed. Patient advised to follow up with PODIATRY. Rx of BACTRIM, KEFLEX, NORCO given. Patient educated on indication of medication including possible reaction and side effects. Opportunity to ask questions provided and answered. CRUTCHES WERE REFUSED BY PT. HE STATED HE HAD SOME AT HOME.
--- NOTE | 2019-05-11 16:21 | NUR ---
SHORT LEG POSTERIOR SPLINT PLACED ON RIGHT LEG. PT REFUSED CRUTCHES, STATES HE HAS SOME AT HOME.
== END 2019-05-11 16:20 | disposition home or self-care (01) ==
LOC: MED 14:31
DX: S92.421B Displaced fracture of distal phalanx of right great toe, initial encounter for open fracture (principal); K21.9 Gastro-esophageal reflux disease without esophagitis; Z85.46 Personal history of malignant neoplasm of prostate; Z79.899 Other long term (current) drug therapy; W20.8XXA Other cause of strike by thrown, projected or falling object, initial encounter; Y93.89 Activity, other specified; Y92.89 Other specified places as the place of occurrence of the external cause; Y99.8 Other external cause status
CPT/HCPCS: 29515; 73660; 90471; 90715; 96372; 99283; J1885; J2001; Q0092

== ENCOUNTER 2019-05-16 07:10 | Emergency (ER) | payer OTHER ==
[~2019-05-16] VITALS: Ht 190.5 cm; Wt 83.9 kg
[2019-05-16 07:15] VITALS: BP 97/55
--- NOTE | 2019-05-16 07:15 | NUR ---
PT W/C ASSISTED TO BED 4.
--- NOTE | 2019-05-16 07:23 | NUR ---
PT C/O R FOOT PAIN WITH ACTIVE BLEEDING. PT STATES THAT WHEN HE CHANGED THE FOOT DRESSING HE BEGAN TO HAVE ACTIVE BLEEDING TO HIS R TOE NAIL. PULSES PRESENT IN FEET BILATERALLY. CMS IN TACT. VSS. IN BED AND PENDING MD NOLASCO.
--- NOTE | 2019-05-16 07:24 | NUR ---
Dr. Buchanan is evaluating the patient at bedside.
[2019-05-16] MEDS ORDERED: HYDROcodone/APAP 5/325 MG 1 TAB TAB PO ONE (07:30)
--- NOTE | 2019-05-16 07:34 | NUR ---
CALLED [facility] AND ASKED FOR MENS SHOE SIZE 13, [facility] STATES THEY DO NOT HAVE A SHOE CLOSE TO THAT SIZE
--- NOTE | 2019-05-16 07:58 | NUR ---
RADIOLOGY AT BEDSIDE.
--- NOTE | 2019-05-16 08:03 | NUR ---
LAB AT BEDSIDE.
[2019-05-16 08:16] LABS: HEMATOCRIT 28.3 % (36-52); HEMOGLOBIN 9.2 g/dL (12.0-18.0)
--- NOTE | 2019-05-16 08:19 | NUR ---
PT RESTING IN BED.
--- NOTE | 2019-05-16 08:22 | NUR ---
DR CANO AT BEDSIDE.
--- NOTE | 2019-05-16 08:45 | NUR ---
Dr. Buchanan is re-evaluating the patient at bedside.
[2019-05-16] MEDS ORDERED: NACL 0.9% 1,000 ML IV ONE (08:50)
--- NOTE | 2019-05-16 09:00 | NUR ---
applied posterior short leg splint to right foot without any issues. patient demonstrated proper use of crutches
--- NOTE | 2019-05-16 09:00 | NUR ---
PT BP 87/57. MD MADE AWARE. ORDERS TO FOLLOW.
--- NOTE | 2019-05-16 10:00 | NUR ---
IV removed, catheter intact and site benign. Applied folded 4x4 gauze and tape to stop bleeding.
--- NOTE | 2019-05-16 10:03 | NUR ---
Patient discharged with v/s stable. Written and verbal after care instructions given and explained. Patient verbalized understanding. Ambulatory with steady gait. All questions addressed prior to discharge. Advised to follow up with PMD and data integrity specialist.
[2019-05-16 10:04] VITALS: BP 106/63
== END 2019-05-16 10:03 | disposition home or self-care (01) ==
LOC: MED 07:10
DX: S90.221A Contusion of right lesser toe(s) with damage to nail, initial encounter (principal); M79.674 Pain in right toe(s); R42 Dizziness and giddiness; K21.9 Gastro-esophageal reflux disease without esophagitis; Z85.46 Personal history of malignant neoplasm of prostate; Z79.899 Other long term (current) drug therapy; X58.XXXA Exposure to other specified factors, initial encounter; Y93.89 Activity, other specified; Y92.89 Other specified places as the place of occurrence of the external cause; Y99.8 Other external cause status
CPT/HCPCS: 29515; 36415; 73660; 85018; 96360; 99284; J7030; Q0092

== ENCOUNTER 2019-05-30 21:28 | Inpatient (IN) | payer OTHER ==
[~2019-05-30] VITALS: Ht 190.5 cm; Wt 83.9 kg
[2019-05-30 21:30] VITALS: BP 125/77
--- NOTE | 2019-05-30 21:30 | NUR ---
TO BED # 06 AMBULATORY
--- NOTE | 2019-05-30 21:59 | NUR ---
54 Y/O M PRESENTS TO ED WITH C/O VOMITTING BLOOD X1 DAY. PT REPORTS BELIEVING IT IS RELATED TO FOOD POISIONING. SMALL BLOOD CHUNKS SEEN IN PT EMESIS BAG. C/O ABDOMINAL PAIN, RADIATING TO HIS LOWER BACK. ABDOMEN SOFT AND NON-TENDER. BEDRAILX1 UP. WILL CONTINUE TO MONITOR.
[2019-05-30] MEDS ORDERED: NACL 0.9% 1,000 ML IV SCH (22:02)
[2019-05-30] MEDS ORDERED: PANTOPRAZOLE 40 MG INJ VIAL IVP ONE (22:05)
[2019-05-30] MEDS ORDERED: PANTOPRAZOLE 40 MG INJ VIAL ONE (22:09)
[2019-05-30] MEDS ORDERED: ONDANSETRON 4 MG/2 ML VIAL IVP ONE (22:10)
[2019-05-30] MEDS ORDERED: MORPHINE SULFATE 4 MG/ML SYR IVP ONE (22:10)
--- NOTE | 2019-05-30 22:45 | NUR ---
PT STOPPED VOMITTING AT THIS TIME.
[2019-05-30 22:46] LABS: BASOPHILS % (AUTO) 2.5 % (0.0-2.0); EOSINOPHILS % (AUTO) 0.2 % (0.0-4.0); HEMATOCRIT 25.4 % (36-52); HEMOGLOBIN 8.1 g/dL (12.0-18.0); LYMPHOCYTES # (AUTO) 0.4 K/uL (2.0-11.5); LYMPHOCYTES % (AUTO) 25.2 % (20.5-51.1); MEAN CORPUSCULAR HEMOGLOBIN 25 pg (27-31); MEAN CORPUSCULAR HGB CONC 32 g/dL (33-37); MEAN CORPUSCULAR VOLUME 78.6 fL (80-94); MONOCYTES # (AUTO) 0.2 K/uL (0.8-1.0); MONOCYTES % (AUTO) 11.3 % (1.7-9.3); NEUTROPHILS % (AUTO) 60.8 % (42.2-75.2); PLATELET COUNT (AUTO) 51 K/uL (140-450); RED BLOOD CELL COUNT(AUTO) 3.23 MIL/uL (4.20-6.10); RED CELL DISTRIBUTION WIDTH 16.8 % (11.6-13.7)
[2019-05-30] MEDS: PANTOPRAZOLE 80 MG in NACL 0.9% 100 ML IV SCH (22:59)
[2019-05-30] MEDS ORDERED: diphenhydrAMINE 50 MG/ML VIAL IVP ONE (23:15)
[2019-05-30] MEDS ORDERED: METOCLOPRAMIDE 10 MG/2 ML INJ VIAL IVP ONE (23:15)
[2019-05-30] MEDS ORDERED: OCTREOTIDE ACETATE 1.25 MG in NACL 0.9% 250 ML IV SCH (23:15)
[2019-05-30 23:17] LABS: ALBUMIN 3.5 g/dL (3.4-5.0); ANION GAP 19.2 (8-16); CREATININE 0.9 mg/dL (0.7-1.3); POTASSIUM 3.2 mmol/L (3.5-5.1); TOTAL BILIRUBIN 2.2 mg/dL (0.0-1.0)
--- NOTE | 2019-05-30 23:30 | NUR ---
PROVIDED PT WITH URINAL. PT REPORTS UNABLE TO URINATE AT THIS TIME.
[2019-05-30 23:41] LABS: WHITE BLOOD COUNT (AUTO) 1.7 K/uL (4.8-10.8)
--- NOTE | 2019-05-30 23:57 | NUR ---
PT STILL UNABLE TO PROVIDE URINE SPECIMEN. DR. BARRON MADE AWARE. NO NEW ORDERS AT THIS TIME.
[2019-05-31] MEDS ORDERED: MORPHINE SULFATE 2 MG/ML SYR IVP PRN (00:05)
[2019-05-31] MEDS ORDERED: ACETAMINOPHEN 325 MG TAB PO PRN (00:05)
[2019-05-31] MEDS ORDERED: LORazepam 2 MG/ML VIAL IVP PRN (00:05)
[2019-05-31] MEDS ORDERED: POTASSIUM CHLORIDE 40 MEQ, LIDOCAINE MPF 1% 25 MG in NACL 0.9% 250 ML IV ONE (00:05)
[2019-05-31] MEDS ORDERED: ONDANSETRON 4 MG/2 ML VIAL IVP PRN (00:05)
--- NOTE | 2019-05-31 00:21 | NUR ---
CALLED HOUSE SUP FOR SANDOSTATIN NOT AVAILABLE IN ER PYXIS.
[2019-05-31] MEDS ORDERED: OCTREOTIDE ACETATE 1000 MCG/5 ML VIAL ONE (00:30)
--- NOTE | 2019-05-31 00:30 | NUR ---
DR. BARRON STATES PT IS STABLE TO BE TRANSFERRED TO THE FLOOR WITH RECEIVING SANDOSTATIN.
--- NOTE | 2019-05-31 00:53 | NUR ---
Patient will be admitted to care of Dr. Poole. Admited to [facility]. Will go to room 113A. Belongings list completed. Report to DEA Luz. Transfer of care at this time.
--- NOTE | 2019-05-31 00:53 | NUR ---
Messi thompson in EDM - 05/31/19 at 0125 by MEDQuinnJ PT O2 SATURATION DROPPED TO 88% ON RA. PT PUT ON O2 THERAPY, 0.5L VIA NASAL CANNULA. O2 SATURATION AT 96%.
--- NOTE | 2019-05-31 01:00 | NUR ---
RECEIVED PATIENT FROM ED VIA [employer] BEDSIDE REPORT GIVEN BY ED NURSE YADIEL. PT IS AOX4. PT IS AMBULATORY. WITH IV ACCESS ON RIGHT HAND. PATENT AND INTACT. NO SOB OR DISTRESS NOTED. ON ROOM AIR. SKIN IS INTACT. PATIENT ORIENTED TO ROOM AND ENVIRONMENT. INITIAL ASSESSMENT DONE. CALL LIGHT WITHIN PATIENT REACH. VOMIT BAG GIVEN TO PATIENT. WILL CONTINUE TO MONITOR PATIENT.
[2019-05-31] MEDS: MORPHINE SULFATE 4 MG/ML SYR IVP PRN ×3 (02:43→11:43)
--- NOTE | 2019-05-31 02:49 | NUR ---
TO START SADOSTATIN WE HAD NO RATE CALLED PHARMACY AND ASKED THEY SAID THEY DON'T KNOW GO PER PROTOCOL.OR ASKED OF DR THAT ORDER THAT.PROTOCOL SAID 25MCG/HRS.CALLED ER AND TALKED W/ ANDRADE CHARGE TO ASK OF BECAUSE ORDERING DR WAS .DR BARRON SAID STARTY AT 50MCG/H.CONCENTRATION OF MED IS 5MCG/ML SO I STARTED AT 10ML/H.
[2019-05-31 04:05] VITALS: BP 135/66
[2019-05-31] MEDS ORDERED: cefTRIAXone 1,000 MG VIAL ONE (04:19)
[2019-05-31] MEDS: NACL 0.9% 1,000 ML IV SCH ×2 (04:20→10:02)
--- NOTE | 2019-05-31 04:20 | NUR ---
STARTED IVF PER ORDERS ON L HAND 22G. ROCEPHIN NOW INFUSING PER ORDERS. GAVE PT ICE CHIPS PER REQUEST. ALL NEEDS MET AT THIS TIME.
--- NOTE | 2019-05-31 05:07 | NUR ---
K-RIDER INFUSING PER ORDERS. EDUCATED PT ON S/E OF MEDICATIONS AND TO CALL FOR NURSE IF IV SITE FEELS PAINFUL. CALL LIGHT IS WITHIN REACH.
[2019-05-31] MEDS ORDERED: PANTOPRAZOLE 40 MG INJ VIAL ONE (06:25)
[2019-05-31] MEDS: PANTOPRAZOLE 80 MG in NACL 0.9% 100 ML IV SCH (06:40)
--- NOTE | 2019-05-31 06:53 | NUR ---
PT IN STABLE CONDITION. PRN PAIN MEDICATION GIVEN AT THIS TIME. WILL ENDORSE TO AM SHIFT NURSE FOR CONTINUITY OF CARE.
--- NOTE | 2019-05-31 07:10 | NUR ---
RECEIVED BED SIDE REPORT FROM INSTALLER INSPECTOR FINAL NURSE, PT IN STABLE CONDITION. CALL LIGHT WITHIN PATIENT REACH. WILL CONTINUE TO MONITOR
[2019-05-31 08:00] VITALS: BP 133/71
--- NOTE | 2019-05-31 08:17 | NUR ---
PATIENT HAS BEEN SCREENED AND CATEGORIZED MODERATE NUTRITION RISK. PATIENT WILL BE SEEN WITHIN 3-5 DAYS OF ADMISSION. 06/02/19 06/04/[address]
--- NOTE | 2019-05-31 11:54 | NUR ---
PRN MEDS GIVEN TO PATIENT FOR PAIN AND NAUSEA. PATIENT TOLERATED WELL, NO DISTRESS NOTED. WILL FOLLOW UP IN 30 MINS TO MONITOR PAIN AND NAUSEA .
[2019-05-31 12:00] VITALS: BP 140/75
--- NOTE | 2019-05-31 13:00 | NUR ---
DR. LOFTON ON UNIT REVIEWING PLAN WITH PATIENT. PER DR. LOFTON, HE IS NOT GOING TO DO EGD TODAY. PATIENT IS NON-COMPLIANT WITH FOLLOW-UP WITH PCP FOR RENEWAL OF MEDS. NEEDS ASSET PROTECTION SPECIALIST FOR SUPPORT. OK TO DISCHARGE BY DR. LOFTON
--- NOTE | 2019-05-31 14:21 | NUR ---
DC PLANNING 54 YRS OLD MALE ADMITTED FROM HOME WITH DX GI BLEEDING, HAS HX OF CHRONIC LIVER DISEASE DUE TO ALCOHOL. ADMINISTERED IVF , SANDOSTATIN AND ROCEPHIN GI CONSULT WITH DR LOFTON FOR POSSIBLE EGD . DC PLAN SOCIAL SUPPORT FOR ETOH ABUSE .CM TO FOLLOW
--- NOTE | 2019-05-31 15:00 | NUR ---
PATIENT LYING DOWN IN BED WATCHING TV. NO DISTRESS NOTED. DENIES ANY PAIN. WILL CONTINUE TO MONITOR.
--- NOTE | 2019-05-31 15:37 | NUR ---
Box Stapler Note: Basic Screen: Yes High Risk DC Screen [place]: SASKIA Chan Relationship: MOTHER Pre-Admission Living Arrangements: Lives with Other Other: LIVES WITH MOTHER Prior ADL Independent Current Home Health Name/Tel: N/A Current DME/02 Name/Tel: N/A Current Hospice Name/Tel: N/A Current Dialysis Name/Tel: N/A Healthcare Decision Maker: Patient Advance Directive No - REFUSED Physician Orders for Life Sustaining Treatment Form No Patient/Family Have Educational Needs No Information Taught: Advance Directive Person Taught: Patient Teaching Tools: Verbal Factors Affecting Learning: None Participation Level: Refused Evaluation: Verbalizes Understanding Needs Additional Education: No Discipline: Case Mgt/Social Svcs Tentative Discharge Plan/Destination: No Needs Identified Will require assistance post discharge: No Referred to [place]: No Tentative Discharge Plan Summary: Patient is a 54 year old male admitted for upper gastro intestinal bleed. Patient has PMHX of ETOH abuse, chronic liver disease, and varices present with acute onset hematemesis. Patient was admitted from home. [facility] Patient stated his PCP is Dr. Gareth Paniagua and his last appointment was 3 months ago. Patient refused education on advanced directive but stated his brother Addison Julian would be his healthcare decision maker. Patient was unable to provide Addison Julian's contact information because his phone . Patient stated that he lives with his mother and receives adequate support from her. Patient denies mental health history, SI/HI, and current substance use. Patient reports drinking a fifth of a liter of vodka daily but reports stopping 3-4 months ago. Patient denies any tobacco or illicit drug use. CONOR offered substance abuse resources but patient refused. Patient's tentative plan after discharge is to return home to mother. No further needs identified. Signature: KVNG Carrillo Date: May 31, 2019 Time: 15:36
[2019-05-31 16:00] VITALS: BP 141/78
[2019-05-31] MEDS: METOCLOPRAMIDE 10 MG/2 ML INJ VIAL IVP SCH (16:53)
[2019-05-31] MEDS: FERROUS SULFATE 325 MG TABEC PO SCH (16:53)
--- NOTE | 2019-05-31 17:01 | NUR ---
SCHEDULED MEDICATIONS DUE GIVEN. WILL CONTINUE TO MONITOR.
--- NOTE | 2019-05-31 19:10 | NUR ---
END OF SHIFT BED SIDE REPORT GIVEN TO PASSENGER SERVICE REPRESENTATIVE NURSE. PATIENT IN STABLE CONDITION.
--- NOTE | 2019-05-31 19:20 | NUR ---
RECEIVED BEDSIDE REPORT FROM AM SHIFT NURSE. PATIENT IS RESTING COMFORTABLY IN BED AWAKE AND ALERT WATCHING TV. NO SOB OR DISTRESS NOTED. IV ACCESS ON RIGHT HAND 22 GAUGE AND LEFT HAND 22 GAUGE. PATENT AND INTACT AND INFUSING WELL. BED IN LOW. BOARD UPDATED. CALL LIGHT WITHIN PATIENT REACH. WILL CONTINUE TO MONITOR PATIENT.
[2019-05-31 20:25] VITALS: BP 141/72
[2019-05-31] MEDS: LACTULOSE 20 GM/30 ML UDC PO SCH (20:55)
[2019-05-31] MEDS: PANTOPRAZOLE 40 MG INJ VIAL IVP SCH (20:56)
[2019-05-31] MEDS: HYOSCYAMINE 0.125 MG TAB PO PRN (20:56)
[2019-05-31] MEDS ORDERED: AMITRIPTYLINE 25 MG TAB PO SCH (21:00)
[2019-05-31] MEDS: SODIUM FERRIC GLUCONATE 125 MG in NACL 0.9% 100 ML IV SCH (21:04)
--- NOTE | 2019-05-31 21:04 | NUR ---
IV FERRLECIT GIVEN AT THIS TIME. WILL CONTINUE TO MONITOR PATIENT.
--- NOTE | 2019-05-31 23:34 | NUR ---
IV ANTIBIOTIC ROCEPHIN GIVEN AT THIS TIME. WILL CONTINUE TO MONITOR PATIENT.
[2019-06-01 00:25] VITALS: BP 131/76
--- NOTE | 2019-06-01 00:25 | NUR ---
VITAL SIGNS DONE. NO DISTRESS NOTED. VISIBLE CHEST RISE AND FALL NOTED. CALL LIGHT WITHIN PATIENT REACH. WILL CONTINUE TO MONITOR PATIENT.
--- NOTE | 2019-06-01 03:15 | NUR ---
ASSISTED PATIENT TO THE RESTROOM. BED FIXED AND CLEANED.
[2019-06-01 04:25] VITALS: BP 134/71
--- NOTE | 2019-06-01 04:25 | NUR ---
VITALS DONE. PATIENT AWAKE AND WATCHING TV. NO DISTRESS NOTED.WILL CONTINUE TO MONITOR PATIENT.
--- NOTE | 2019-06-01 06:30 | NUR ---
PT IN STABLE CONDITION. CALL LIGHT WITHIN PATIENT REACH. WILL ENDORSE TO AM SHIFT NURSE FOR CONTINUITY OF CARE.
--- NOTE | 2019-06-01 07:10 | NUR ---
RECEIVED BED SIDE REPORT FROM NIGHT NURSE, PATIENT IS COMFORTABLE AND NO DISTRESS NOTED. WILL CONTINUE TO MONITOR.
[2019-06-01 07:25] LABS: HEMATOCRIT 23.6 % (36-52); HEMOGLOBIN 7.5 g/dL (12.0-18.0); MEAN CORPUSCULAR HEMOGLOBIN 25 pg (27-31); MEAN CORPUSCULAR HGB CONC 32 g/dL (33-37); MEAN CORPUSCULAR VOLUME 79.3 fL (80-94); RED BLOOD CELL COUNT(AUTO) 2.97 MIL/uL (4.20-6.10); RED CELL DISTRIBUTION WIDTH 16.2 % (11.6-13.7)
[2019-06-01 07:26] LABS: ANION GAP 14.1 (8-16); CARBON DIOXIDE 25.5 mmol/L (21-32); POTASSIUM 3.6 mmol/L (3.5-5.1); TOTAL BILIRUBIN 2.3 mg/dL (0.0-1.0)
[2019-06-01 07:49] LABS: PLATELET COUNT (AUTO) 30 K/uL (140-450); WHITE BLOOD COUNT (AUTO) 1.5 K/uL (4.8-10.8)
[2019-06-01 07:50] LABS: EOSINOPHILS % (MANUAL) 7 % (0-4); LYMPHOCYTES % (MANUAL) 20 % (20-46); MONOCYTES % (MANUAL) 5 % (5-12)
[2019-06-01 08:00] VITALS: BP 135/75
[2019-06-01] MEDS: HYOSCYAMINE 0.125 MG TAB PO PRN (08:41)
[2019-06-01] MEDS: PANTOPRAZOLE 40 MG INJ VIAL IVP SCH (08:41)
[2019-06-01] MEDS: FERROUS SULFATE 325 MG TABEC PO SCH ×2 (08:41→12:48)
[2019-06-01] MEDS: METOCLOPRAMIDE 10 MG/2 ML INJ VIAL IVP SCH ×2 (08:41→12:48)
[2019-06-01] MEDS: LACTULOSE 20 GM/30 ML UDC PO SCH (08:42)
--- NOTE | 2019-06-01 08:51 | NUR ---
PATIENT LYING DOWN IN BED WITH COMPLAINTS OF ABD PAIN. SCHEDULED MEDICATIONS DUE GIVEN. PAIN MEDICATION GIVEN WELL. WILL CONTINUE TO MONITOR.
[2019-06-01] MEDS ORDERED: FOLIC ACID 1 MG TAB PO SCH (09:00)
[2019-06-01] MEDS ORDERED: THIAMINE 100 MG TAB PO SCH (09:00)
[2019-06-01] MEDS: SODIUM FERRIC GLUCONATE 125 MG in NACL 0.9% 100 ML IV SCH (09:50)
[2019-06-01] MEDS: NACL 0.9% 1,000 ML IV SCH (10:02)
[2019-06-01] MEDS ORDERED: OMEP20TC10 PO (11:11)
[2019-06-01 12:00] VITALS: BP 111/68
--- NOTE | 2019-06-01 14:05 | NUR ---
DISCHARGED TEACHING GIVEN TO PATIENT IN PREFERRED LANGUAGE OF CANADIAN. DISCHARGE INSTRUCTIONS ON NEW MEDICATIONS, SIDE EFFECTS, DIET REGIMEN AND ALCOHOL WITHDRAWAL RESOURCES GIVEN TO PATIENT. IV REMOVED WITH MINIMAL BLOOD AND LUMEN IN TACT. PATIENT VERBALIZED UNDERSTANDING, DISCHARGED FORMS SIGNED, ARM BAND REMOVED AND PATIENT TO GET DRESS.
--- NOTE | 2019-06-01 14:15 | NUR ---
PATIENT ESCORTED DOWN TO LOBBY VIA AMBULATION, PATIENT DISCHARGED AT THIS TIME IN STABLE CONDITION.
--- NOTE | 2019-06-04 14:46 | NUR ---
PCP Appointment: CONOR contacted Ami from Dr. Gareth Paniagua's office to schedule hospital follow up appointment. CONOR scheduled appointment for 2:45PM on 06/17/2019 @ [address] [place] [address]. Patient was notified of appointment time. No further needs identified.
== END 2019-06-01 14:15 | disposition home or self-care (01) | DRG 242 ==
LOC: MED 21:28 → MTU 05-31 00:08
PROVIDERS: ADMIT Internal Medicine Pulmonary Disease; ATTEND Internal Medicine Pulmonary Disease
DX: K22.11 Ulcer of esophagus with bleeding (principal); D69.6 Thrombocytopenia, unspecified; E44.0 Moderate protein-calorie malnutrition; D62 Acute posthemorrhagic anemia; A08.39 Other viral enteritis; K70.9 Alcoholic liver disease, unspecified; D72.819 Decreased white blood cell count, unspecified; E87.6 Hypokalemia; F10.229 Alcohol dependence with intoxication, unspecified; K21.0 Gastro-esophageal reflux disease with esophagitis; Z60.2 Problems related to living alone; Z91.19 Patient's noncompliance with other medical treatment and regimen; Z85.46 Personal history of malignant neoplasm of prostate; Z68.23 Body mass index [BMI] 23.0-23.9, adult
CPT/HCPCS: 36415; 71045; 80053; 83690; 85025; 86870; 86886; 86900; 86901; 87081; 96361; 96374; 96375; 99285; C9113; G0482; J0696; J1200; J2001; J2270; J2354; J2405; J2765; J2916; J3480; J7030; J7060; Q0092

== ENCOUNTER 2019-06-17 01:14 | Inpatient (IN) | payer OTHER ==
[~2019-06-17] VITALS: Ht 190.5 cm; Wt 83.5 kg
[~2019-06-17 01:14] MED LIST changes: +OMEP20TC10 PO
[2019-06-17 01:23] VITALS: BP 110/59
[2019-06-17] MEDS ORDERED: NACL 0.9% 500 ML IV ONE (01:23)
[2019-06-17] MEDS ORDERED: KETOROLAC 30 MG/ML VIAL IVP ONE (01:25)
[2019-06-17] MEDS ORDERED: ONDANSETRON 4 MG/2 ML VIAL IVP ONE ×3 (01:25→03:25)
--- NOTE | 2019-06-17 01:28 | NUR ---
PT AMBULATED TO BED 2
--- NOTE | 2019-06-17 01:30 | NUR ---
54 Y/O MALE C/O VOMITING X1 DAY, AND VOMITING BLOOD SINCE 1999 LAST NIGHT. PT STATES ABD STARTED X1 DAY AGO. RECTAL BLEEDING BRIGHT RED BLOOD X1 WEEK. PT STATES HE HAD ALCOHOL FOR THE FIRST TIME IN 6 MO ON MONDAY AND THEN ONSET OF ABD PAIN. BOWEL SOUND PRESENT X4 QUAD. PT ACTIVELY VOMITING AT THIS TIME. RR EVEN AND UNLABORED. PT PLACED ON MONITOR. VSS. MEDHX: HEMMORHOIDS, PROSTATE CANCER, CHRONIC PANCREATITIS ALLERGIES: NKA
[2019-06-17] MEDS ORDERED: PANTOPRAZOLE 40 MG INJ VIAL IVP ONE (01:40)
[2019-06-17] MEDS ORDERED: MORPHINE SULFATE 2 MG/ML SYR IVP ONE ×2 (01:40→04:05)
--- NOTE | 2019-06-17 02:08 | NUR ---
XRAY AT BEDSIDE
--- NOTE | 2019-06-17 02:12 | NUR ---
DR ROBISON AT BEDSIDE FOR IV INSERTION.
[2019-06-17 02:30] LABS: BASOPHILS # (AUTO) 0.1 K/uL (0.00-0.22); BASOPHILS % (AUTO) 2.9 % (0.0-2.0); EOSINOPHILS % (AUTO) 1.5 % (0.0-4.0); HEMATOCRIT 22.4 % (36-52); LYMPHOCYTES # (AUTO) 0.7 K/uL (2.0-11.5); LYMPHOCYTES % (AUTO) 35.1 % (20.5-51.1); MEAN CORPUSCULAR HEMOGLOBIN 24 pg (27-31); MEAN CORPUSCULAR HGB CONC 31 g/dL (33-37); MEAN CORPUSCULAR VOLUME 77.9 fL (80-94); MONOCYTES # (AUTO) 0.2 K/uL (0.8-1.0); MONOCYTES % (AUTO) 8.8 % (1.7-9.3); NEUTROPHILS % (AUTO) 51.7 % (42.2-75.2); RED BLOOD CELL COUNT(AUTO) 2.88 MIL/uL (4.20-6.10); RED CELL DISTRIBUTION WIDTH 18.3 % (11.6-13.7)
[2019-06-17 02:47] LABS: ANION GAP 12.8 (8-16); CARBON DIOXIDE 27.5 mmol/L (21-32); CREATININE 0.9 mg/dL (0.7-1.3); POTASSIUM 3.3 mmol/L (3.5-5.1)
--- NOTE | 2019-06-17 02:49 | NUR ---
PTS IV INFILTRATED, DR ROBISON MADE AWARE. DEA SAMANO TO TRY TO GAIN IV ACCESS AT THIS TIME.
[2019-06-17 02:51] LABS: ACETAMINOPHEN < 0.5 ug/ml (10-30); SALICYLATE < 2.8 mg/dL (2.8-20.0)
[2019-06-17 02:56] LABS: PROTHROMBIN TIME 16.1 secs (10.8-13.4)
--- NOTE | 2019-06-17 03:00 | NUR ---
PT STATES NO RELIEF OF NAUSEA AND CONTINUES TO VOMIT. DR ROBISON MADE AWARE
--- NOTE | 2019-06-17 03:06 | NUR ---
CRITICAL VALUE REPORTED. LACTIC ACID 3.2. DR ROBISON MADE AWARE.
[2019-06-17] MEDS ORDERED: NACL 0.9% 2,500 ML IV ONE (03:10)
--- NOTE | 2019-06-17 03:18 | NUR ---
PT STATES NO RELIEF OF PAIN 10/[address] ROBISON MADE AWARE
[2019-06-17 03:23] LABS: PLATELET COUNT (AUTO) 61 K/uL (140-450)
--- NOTE | 2019-06-17 03:30 | NUR ---
PT RECEIVED AND SIGN CONSENT FOR BLOOD TRANSFUSION
--- NOTE | 2019-06-17 03:46 | NUR ---
PT STATES HE IS UNABLE TO OBTAIN URINE AT THIS TIME, STATES HE WILL TRY IN "A FEW MINUTES"
[2019-06-17] MEDS ORDERED: OCTREOTIDE ACETATE 100 MCG/ML VIAL SUBQ ONE (04:05)
--- NOTE | 2019-06-17 04:38 | NUR ---
SUPERVISOR WIRE ROPE FABRICATION CALLED FOR SANDOSTATIN. NO ANSWER AT THIS TIME. WILL TRY AGAIN.
[2019-06-17] MEDS ORDERED: OCTREOTIDE ACETATE 1000 MCG/5 ML VIAL ONE (04:48)
[2019-06-17] MEDS ORDERED: MORPHINE SULFATE 4 MG/ML SYR IVP PRN (04:50)
[2019-06-17] MEDS ORDERED: LORazepam 2 MG/ML VIAL IVP PRN (04:50)
[2019-06-17] MEDS ORDERED: ONDANSETRON 4 MG/2 ML VIAL IVP PRN (04:50)
--- NOTE | 2019-06-17 05:02 | NUR ---
PT STATES SLIGHT RELIEF OF PAIN AFTER RECEIVING MORPHINE. 6/10 PAIN AT THIS TIME. DR ROBISON MADE AWARE. VSS. WILL CONTINUE TO MONITOR.
[2019-06-17 05:15] VITALS: BP 138/81
--- NOTE | 2019-06-17 05:15 | NUR ---
ADMITTED A 54M FROM ED VIA GURNEY. ALERT AND ORIENTED X4. NO APPARENT DISTRESS NOTED. ORIENTED TO HOSPITAL ROUTINE, ENVIRONMENT AND EQUIPMENT. BED ON LOW POSITION. SAFETY ENSURED. SKIN IS INTACT. WITH 20G RIGHT FOREARM ON SALINE LOCK AND 22 G ON LEFT HAND RUNNING IVF. CALL LIGHT WITHIN REACH. WILL CONTINUE TO MONITOR.
--- NOTE | 2019-06-17 05:27 | NUR ---
Patient will be admitted to care of DR STEVENS. Admited to TELE. Will go to room 107A. Belongings list completed. Report to DEA HERNADEZ.
[2019-06-17] MEDS: LACTATED RINGERS 1,000 ML IV SCH ×2 (06:00→11:11)
[2019-06-17] MEDS ORDERED: AMPICILLIN/SULBACTAM 1.5 GM in NACL 0.9% 50 ML IV SCH (06:00)
[2019-06-17] MEDS ORDERED: AMPICILLIN/SULBACTAM 1.5 GM VIAL ONE (06:21)
--- NOTE | 2019-06-17 07:10 | NUR ---
RECEIVED REPORT FROM SHEET METAL WORK FURNACE INSTALLER NURSE, PATIENT IN STABLE CONDITION. WILL CONTINUE TO MONITOR.
--- NOTE | 2019-06-17 07:20 | NUR ---
ADMITTED A 54M FROM ED VIA [employer]. ALERT AND ORIENTED X4. NO APPARENT DISTRESS NOTED. ORIENTED TO HOSPITAL ROUTINE, ENVIRONMENT AND EQUIPMENT. BED ON LOW POSITION. SAFETY ENSURED. SKIN IS INTACT. WITH 20G RIGHT FOREARM ON SALINE LOCK AND 22 G ON LEFT HAND RUNNING IVF. CALL LIGHT WITHIN REACH. WILL CONTINUE TO MONITOR. Addendum: 06/17/19 at 0737 by Hilton Wagner RN DISREGARD NOTE. WRONG TIME.
--- NOTE | 2019-06-17 07:20 | NUR ---
ENDORSED TO AM SHIFT NURSE IN STABLE CONDITION FOR CONTINUITY OF CARE.
[2019-06-17 08:00] VITALS: BP 145/76
--- NOTE | 2019-06-17 08:54 | NUR ---
PATIENT HAS BEEN SCREENED AND CATEGORIZED MODERATE NUTRITION RISK. PATIENT WILL BE SEEN WITHIN 3-5 DAYS OF ADMISSION. 06/19/19 06/21/[address]
[2019-06-17] MEDS: PANTOPRAZOLE 40 MG INJ VIAL IVP SCH ×2 (08:56→21:46)
--- NOTE | 2019-06-17 08:57 | NUR ---
PATIENT AT THE BEDSIDE. C/O OF PAIN AND NAUSEA AND DIZZINESS. 10/10 ON NUMERIC SCALE. PAIN MEDICATIONS AND ZOFRAN WILL BE GIVEN PROTOCOL. WILL CONTINUE TO MONITOR.
--- NOTE | 2019-06-17 11:12 | NUR ---
DC PLANNING 54 YRS OLD WAS ADMITTED FROM HOME WITH A DX OF GI BLEEDING , HX OF ALCOHOLIC LIVER DISEASE, HEAVY ALCOHOL INTAKE H/H 7.0/ 22.4 . ADMINISTERED IVF ,PROTONIX IVP AND TORADOL IV FOR PAIN . 3 UNITS PRBC ORDERED, GI CONSULT WITH DR LOFTON DC PLAN TO GO HOME WITH FAMILY WHEN STABLE. CM TO FOLLOW Addendum: 06/19/19 at 1154 by Geno Crockett CM EGD DONE BY DR LOFTON ON 06/17 - HIATAL HERNIA WITH EROSIVE ESOPHAGITIS AND EARLY ESOPHAGITIS. ON PROTONIX AND REGLAN IV. ON REGULAR DIET. FOR POSSIBLE DC TO HOME TODAY, NO NEEDS. PENDING PHYSICIAN ROUNDING.
[2019-06-17] MEDS ORDERED: PROMETHAZINE 25 MG/ML VIAL IM PRN (11:35)
[2019-06-17] MEDS ORDERED: METOCLOPRAMIDE 10 MG/2 ML INJ VIAL IVP PRN (11:35)
[2019-06-17 12:00] VITALS: BP 131/79
[2019-06-17] MEDS ORDERED: OCTREOTIDE ACETATE 100 MCG/ML VIAL SUBQ SCH (12:00)
[2019-06-17] MEDS ORDERED: fentaNYL 0.05 MG/ML VIAL ONE (12:22)
[2019-06-17] MEDS ORDERED: MIDAZOLAM 2 MG/2 ML VIAL ONE ×2 (12:22→12:58)
--- NOTE | 2019-06-17 12:29 | NUR ---
OR NURSES ON UNIT TO TAKE PATIENT TO OR FOR EGD PROCEDURE. WILL CONTINUE TO MONITOR WHEN PATIENT RETURNS ON UNIT.
[2019-06-17] MEDS ORDERED: diphenhydrAMINE 50 MG/ML VIAL ONE (13:12)
--- NOTE | 2019-06-17 14:00 | NUR ---
Leather Dresser Note: I met with patient at bedside to conduct assessment, patient appeared drowsy. I asked him if he wanted me to meet with him at a later time, he said "yes".
[2019-06-17] MEDS: POTASSIUM CHL 20 MEQ/D5-1/2NS 1,000 ML IV SCH (14:48)
[2019-06-17 16:00] VITALS: BP 134/83
[2019-06-17] MEDS: IRON SUCROSE COMPLEX 100 MG/5 ML VIAL IVP SCH (16:21)
[2019-06-17] MEDS: METOCLOPRAMIDE 10 MG/2 ML INJ VIAL IVP SCH (16:21)
[2019-06-17] MEDS: chlordiazePOXIDE 25 MG CAP PO SCH (18:32)
--- NOTE | 2019-06-17 19:19 | NUR ---
ENDORSED BED SIDE REPORT TO CARROTING MACHINE OPERATOR NURSE. PATIENT IN STABLE CONDITION.
--- NOTE | 2019-06-17 19:20 | NUR ---
RECEIVED ENDORSEMENT FROM AM SHIFT NURSE. PATIENT ALERT AND ORIENTED X4. NO APPARENT DISTRESS NOTED. WITH 20G ON RIGHT FOREARM AND 22G ON LFA. WILL CONTINUE TO MONITOR.
[2019-06-17 20:00] VITALS: BP 137/65
--- NOTE | 2019-06-17 20:00 | NUR ---
PATIENT AWAKE IN BED, RESTING. NO APPARENT DISTRESS NOTED. WILL CONTINUE TO MONITOR.
--- NOTE | 2019-06-17 20:55 | NUR ---
STARTED BLOOD TRANSFUSION AT 2039. VERIFIED BY CHARGE NURSE. VITAL SIGNS FOLLOWS: 2009: 99.5, 101, 18 137/65, 0/, 2039: 98.6, 96, 18, 147/60, 0, 2054: 99.6, 86, 17, 134/68, 010 NO SIGNS AND SYMPTOMS OF TRANSFUSION REACTION NOTED.
[2019-06-17] MEDS: AMITRIPTYLINE 25 MG TAB PO SCH (21:46)
--- NOTE | 2019-06-17 21:55 | NUR ---
PATIENT AWAKE IN BED. NO APPARENT DISTRESS NOTED. BLOOD TRANSFUSION ONGOING. NO TRANSFUSION REACTION NOTED. VITAL SIGN: 99.5, 84, 16. 133/66, 0/10.
--- NOTE | 2019-06-17 22:55 | NUR ---
PATIENT ASLEEP IN BED. NO APPARENT DISTRESS NOTED. BLOOD TRANSFUSION ONGOING. NO TRANSFUSION REACTION NOTED. VITAL SIGNS: 98.7, 81, 18, 134/77, 0/10.
[2019-06-18] VITALS: BP 138/79
--- NOTE | 2019-06-18 | NUR ---
BLOOD TRANSFUSION COMPLETED AT 2345. NO TRANSFUSION REACTION NOTED. VITAL SIGNS: 99.1, 101, 18, 138/79, 0/10.
[2019-06-18] MEDS: chlordiazePOXIDE 25 MG CAP PO SCH ×4 (00:34→16:59)
[2019-06-18] MEDS: POTASSIUM CHL 20 MEQ/D5-1/2NS 1,000 ML IV SCH ×2 (01:35→08:35)
--- NOTE | 2019-06-18 02:00 | NUR ---
ASSISTED PATIENT TO THE BATHROOM. SAFETY ENSURED. NO APPARENT DISTRESS NOTED. WILL CONTINUE TO MONITOR.
--- NOTE | 2019-06-18 03:41 | NUR ---
PATIENT ASLEEP IN BED. VISIBLE CHEST RISE AND FALL NOTED. NO APPARENT DISTRESS NOTED. WILL CONTINUE TO MONITOR.
[2019-06-18 04:00] VITALS: BP 127/73
[2019-06-18] MEDS: METOCLOPRAMIDE 10 MG/2 ML INJ VIAL IVP SCH (05:14)
--- NOTE | 2019-06-18 05:40 | NUR ---
PATIENT ASLEEP IN BED. NO APPARENT DISTRESS NOTED. WILL CONTINUE TO MONITOR.
--- NOTE | 2019-06-18 06:13 | NUR ---
PATIENT AWAKE IN BED. RESTING. NO APPARENT DISTRESS NOTED. WILL CONTINUE TO MONITOR.
--- NOTE | 2019-06-18 07:10 | NUR ---
ENDORSED PATIENT TO AM SHIFT NURSE FOR CONTINUITY OF CARE.
--- NOTE | 2019-06-18 07:11 | NUR ---
RECEIVED REPORT FROM THE PROMOTION OFFICER NURSE. PT IS IN STABLE CONDITION. PT IS AWAKE AND ORIENTED. IV ON L RA 22G, INFUSING D5 1/2NS W/ 20MEQ KCL AT 80ML/HR. PT TOLERATING WELL. V/S WITHIN NORMAL RANGE. C/O PAIN IN RIB AREA FROM PREVIOUS VOMITING. DENIES NAUSEA OR VOMITING SINCE YESTERDAY. BOWEL MOVEMENT TODAY, NO BLOOD NOTED. URINE IN URINAL IS ELLY. SKIN INTACT. PT AMBULATES INDEPENDENTLY. ON TELE, SR THIS MORNING. ROOM AIR. NO SIGNS OF RESPIRATORY DISTRESS. WILL CONTINUE TO MONITOR PT.
[2019-06-18 08:00] VITALS: BP 114/75
[2019-06-18] MEDS: FOLIC ACID 1 MG TAB PO SCH (08:32)
[2019-06-18] MEDS: THIAMINE 100 MG TAB PO SCH (08:32)
[2019-06-18] MEDS: PANTOPRAZOLE 40 MG INJ VIAL IVP SCH ×2 (08:32→20:41)
[2019-06-18 08:33] LABS: HEMATOCRIT 21.2 % (36-52); MEAN CORPUSCULAR HEMOGLOBIN 24 pg (27-31); MEAN CORPUSCULAR HGB CONC 31 g/dL (33-37); MEAN CORPUSCULAR VOLUME 78.2 fL (80-94); PLATELET COUNT (AUTO) 36 K/uL (140-450); RED BLOOD CELL COUNT(AUTO) 2.71 MIL/uL (4.20-6.10); RED CELL DISTRIBUTION WIDTH 17.4 % (11.6-13.7)
[2019-06-18 08:52] LABS: ALBUMIN 2.6 g/dL (3.4-5.0); ANION GAP 13.8 (8-16); CARBON DIOXIDE 25.6 mmol/L (21-32); CREATININE 0.8 mg/dL (0.7-1.3); MAGNESIUM 1.2 mg/dL (1.8-2.4); POTASSIUM 3.4 mmol/L (3.5-5.1); TOTAL BILIRUBIN 2.1 mg/dL (0.0-1.0)
[2019-06-18 09:14] LABS: HEMOGLOBIN 6.6 g/dL (12.0-18.0); WHITE BLOOD COUNT (AUTO) 1.5 K/uL (4.8-10.8)
--- NOTE | 2019-06-18 09:14 | NUR ---
CRITICAL LABS: HBG 6.6, WBC 1.5. SANTOS LITTLE MD.
[2019-06-18 09:20] LABS: LYMPHOCYTES % (MANUAL) 38 % (20-46); MONOCYTES % (MANUAL) 6 % (5-12)
[2019-06-18] MEDS ORDERED: MORPHINE SULFATE 2 MG/ML SYR IVP PRN ×2 (09:40→23:50)
[2019-06-18] MEDS: MAG SULF 2000 MG/WATER PREMIX 100 ML IV SCH ×2 (10:00→12:05)
--- NOTE | 2019-06-18 10:10 | NUR ---
CALLED DR RICO AND NOTIFIED HIM OF PT'S K 3.4, WBC 1.5, HGB 6.6, PLATELET 36, MAG 1.2. PER , K IS OK- IVF WITH K IS INFUSING. LOW WBC AND PLATELET IS EXPECTED. NO NEW ORDERS. FOR MAG, MAG RIDER 4G. FOR THE HGB OF 6.6, 2 UNITS OF BLOOD. PT RECEIVED 1 UNIT YESTERDAY. STILL ONE UNIT LEFT IN THE BLOOD BANK IN LAB. ORDERED 1 MORE UNIT FROM [employer]. ALSO FOR PAIN, IN THE RIB AREA D/T PREVIOUS VOMITING, 01/23, GAVE ORDERS FOR MORPHINE 2MG IVP Q 4H PRN. ALL ORDERS IN. WILL START ADMINISTERING.
--- NOTE | 2019-06-18 10:50 | NUR ---
STARTED TRANSFUSION. PT IS TOLERATING WELL. MAG IS ALSO INFUSING. NO COMPLAINTS. WILL CONTINUE TO MONITOR PT.
[2019-06-18] MEDS: FERROUS SULFATE 325 MG TABEC PO SCH ×2 (12:05→17:00)
[2019-06-18 12:20] VITALS: BP_SYST 118; BP_SYST 134; BP_DIAS 61; BP_DIAS 77
--- NOTE | 2019-06-18 13:54 | NUR ---
FINISHED BLOOD TRANSFUSION. 1 OUT OF 2. PT TOLERATED WELL. V/S STABLE. MAG RIDER STILL INFUSING. WILL CONTINUE TO MONITOR PT.
--- NOTE | 2019-06-18 14:00 | NUR ---
GAVE VENOFER IVP OVER 3 MIN. PT TOLERATED WELL. MAG STILL INFUSING. AWAITING 2ND UNIT OF BLOOD FROM THE BLOOD BANK. PT IS RESTING COMFORTABLY. WILL CONTINUE TO MONITOR PT.
[2019-06-18] MEDS: IRON SUCROSE COMPLEX 100 MG/5 ML VIAL IVP SCH (14:11)
[2019-06-18 16:00] VITALS: BP 107/68
--- NOTE | 2019-06-18 16:15 | NUR ---
STARTED BLOOD TRANSFUSION 2/. VITALS STABLE. WILL CONTINUE TO MONITOR PT. MAG FINISHED. IVF INFUSING. PT TOLERATING WELL.
--- NOTE | 2019-06-18 16:28 | NUR ---
PCP Appointment: CONOR contacted Ami from Dr. Servin Dos office [phone] to schedule hospital follow up for patient. CONOR scheduled appointment for 1:00PM on 06/24/2019 @ [address] [place] [address]. CONOR left appointment slip in patients chart to be given at discharge. No further needs identified.
[2019-06-18] MEDS: METOCLOPRAMIDE 10 MG TAB PO SCH (17:00)
--- NOTE | 2019-06-18 19:04 | NUR ---
RECEIVED REPORT FROM THE EMPLOYMENT SPECIALIST NURSE. PT IS IN STABLE CONDITION. PT IS AWAKE AND ORIENTED.AMBULATORY. IV ON L RA 22G, INFUSING D5 1/2NS W/ 20MEQ KCL AT 80ML/HR. WITH BLOOD 2ND UNIT ALMOST DONE AT THE RIGHT HAND G 20. PT TOLERATING WELL. V/S WITHIN NORMAL RANGE. C/O PAIN IN RIB AREA- TOLERABLE PAIN . DENIES NAUSEA OR VOMITING SINCE YESTERDAY. URINE IN URINAL IS ELLY. SKIN INTACT. ON TELE. ROOM AIR. NO SIGNS OF RESPIRATORY DISTRESS. WILL CONTINUE TO MONITOR PT.
--- NOTE | 2019-06-18 19:05 | NUR ---
FINISHED BLOOD TRANSFUSION. PT TOLERATED WELL. PT ENDORSED TO IOS PROGRAMMER NURSE. PT IN STABLE CONDITION.
[2019-06-18 19:49] LABS: BARBITURATE, URINE NEG. ng/ml (NEG <=200); BENZODIAZEPINE, URINE POS. ng/mL (NEG <=200); CANNABINOID, URINE NEG. ng/mL (NEG <=50); COCAINE, URINE NEG. ng/mL (NEG <=300); OPIATE, URINE NEG. ng/mL (NEG <=2000); PHENCYCLIDINE SCREEN,URINE NEG. ng/mL (NEG <=25)
[2019-06-18 20:00] VITALS: BP 114/66
--- NOTE | 2019-06-18 20:00 | NUR ---
CHECKED PATIENT FOR ADVERSE REACTIONS FOR BLOOD. NONE NOTED. WILL MEDICATE ORDERED
[2019-06-18 20:28] LABS: APPEARANCE,URINE CLEAR (CLEAR); BILIRUBIN,URINE NEGATIVE (NEGATIVE); BLOOD, URINE NEGATIVE (NEGATIVE); LEUKOCYTE ESTERASE ,URINE NEGATIVE (NEGATIVE); NITRITE, URINE NEGATIVE (NEGATIVE); PH,URINE >=9.0 (5.0-9.0); UGLUCOSE NEGATIVE (NEGATIVE)
[2019-06-18 20:31] LABS: COLOR,URINE AMBER (YELLOW)
[2019-06-18] MEDS: AMITRIPTYLINE 25 MG TAB PO SCH (20:42)
[2019-06-18] MEDS: MAGNESIUM OXIDE 400 MG TAB PO SCH (20:42)
--- NOTE | 2019-06-18 23:44 | NUR ---
PT C/O OF 03/26 ABDOMINAL PAIN, TALKED TO DR. HERRERA AND ORDERED MORPHINE. WILL CARRY OUT ORDERS
[2019-06-19] VITALS: BP 110/65
--- NOTE | 2019-06-19 | NUR ---
PTIENT TRYING TO GET SOME SLEEP, NO COMPLAINTS AT OBED TIME. WILL CONTINUE TO MONITOR
[2019-06-19] MEDS: chlordiazePOXIDE 25 MG CAP PO SCH ×3 (00:45→13:05)
[2019-06-19 05:55] VITALS: BP 115/61
[2019-06-19] MEDS: METOCLOPRAMIDE 10 MG TAB PO SCH ×2 (06:42→13:05)
--- NOTE | 2019-06-19 06:42 | NUR ---
GAVE THE PAIN MED, PER PATIENT ABDOMINAL PAIN IS 1/10. WILL ENDORSE TO NEXT SHIFT PAIN REASSESSMENT
--- NOTE | 2019-06-19 06:57 | NUR ---
PT AWAKE, ALERT ORIENTED,AMBULATORY . PT IN STABLE CONDITION.WILL ENDORSE TO NEXT SHIFT
--- NOTE | 2019-06-19 07:15 | NUR ---
RECEIVED PT FROM BATH MIXER NURSE, PT IS AWAKE AND ALERT, NO S/S OF ACUTE DISTRESS. PT IS ON ROOM AIR, SKIN INTACT. IV SITE K HAND 22 G, AND R HAND 20 G. PT IS AMBULATORY. CALL LIGHT IS WITHIN REACH.
[2019-06-19 08:00] VITALS: BP 141/84
[2019-06-19 08:10] LABS: HEPATITIS A ANTIBODY IGM Negative (Negative); HEPATITIS B CORE AB TOTAL Negative (Negative); HEPATITIS B SURFACE ANTIBODY Non Reactive (.); HEPATITIS B SURFACE ANTIGEN Negative (Negative)
[2019-06-19 08:58] LABS: HEMATOCRIT 28.4 % (36-52); HEMOGLOBIN 8.9 g/dL (12.0-18.0); MEAN CORPUSCULAR HEMOGLOBIN 25 pg (27-31); MEAN CORPUSCULAR HGB CONC 31 g/dL (33-37); PLATELET COUNT (AUTO) 41 K/uL (140-450); RED BLOOD CELL COUNT(AUTO) 3.59 MIL/uL (4.20-6.10); RED CELL DISTRIBUTION WIDTH 17.7 % (11.6-13.7); WHITE BLOOD COUNT (AUTO) 2.5 K/uL (4.8-10.8)
[2019-06-19] MEDS ORDERED: MULTIVIT/MIN/CA/FE/FA 1 TAB PO SCH (09:00)
[2019-06-19 09:28] LABS: EOSINOPHILS % (MANUAL) 1 % (0-4); LYMPHOCYTES % (MANUAL) 20 % (20-46); MONOCYTES % (MANUAL) 8 % (5-12)
[2019-06-19 09:31] LABS: BASOPHILS % (MANUAL) 1 % (0-2)
[2019-06-19] MEDS: PANTOPRAZOLE 40 MG INJ VIAL IVP SCH (10:12)
[2019-06-19] MEDS: THIAMINE 100 MG TAB PO SCH (10:13)
[2019-06-19] MEDS: MAGNESIUM OXIDE 400 MG TAB PO SCH (10:13)
[2019-06-19] MEDS: FOLIC ACID 1 MG TAB PO SCH (10:13)
[2019-06-19] MEDS: FERROUS SULFATE 325 MG TABEC PO SCH ×2 (10:14→13:05)
--- NOTE | 2019-06-19 10:22 | NUR ---
AM MEDS ADMINISTERED, PT TOLERATED WELL
[2019-06-19] MEDS ORDERED: VITB1I PO (12:07)
[2019-06-19] MEDS ORDERED: LIB25 PO (12:07)
--- NOTE | 2019-06-19 14:00 | NUR ---
PT DC'D HOME. PT WAS GIVEN DC INSTRUCTIONS AND PRESCRIPTION. PT VERBALIZED UNDERSTANDING OF DC TEACHING. IV SITES AND WRIST BAND WERE REMOVED. PT DECLINED THE FLU SHOT UPON DC. PT LEFT WITH ALL HIS BELONGINGS IN STABLE CONDITION.
--- NOTE | 2019-06-24 11:34 | NUR ---
As per [facility] Portal, Auth Number: [id number]. Auth Status: Approved. DOS Approved: 06/17/19-06/19/19. LOC: Telemetry.
== END 2019-06-19 13:45 | disposition home or self-care (01) | DRG 280 ==
LOC: MED 01:14 → MTU 05:06
PROVIDERS: ADMIT Internal Medicine Pulmonary Disease; ATTEND Internal Medicine Pulmonary Disease
PROC: 30233N1 Transfusion of Nonautologous Red Blood Cells into Peripheral Vein, Percutaneous Approach (ICD-10-PCS; 2019-06-17)
PROC: 0DJ08ZZ Inspection of Upper Intestinal Tract, Via Natural or Artificial Opening Endoscopic (ICD-10-PCS; principal; 2019-06-17 12:30)
DX: K70.30 Alcoholic cirrhosis of liver without ascites (principal); K22.11 Ulcer of esophagus with bleeding; D69.6 Thrombocytopenia, unspecified; E44.1 Mild protein-calorie malnutrition; K76.6 Portal hypertension; K86.1 Other chronic pancreatitis; I85.10 Secondary esophageal varices without bleeding; D64.9 Anemia, unspecified; F10.229 Alcohol dependence with intoxication, unspecified; Z68.23 Body mass index [BMI] 23.0-23.9, adult; F32.9 Major depressive disorder, single episode, unspecified; Z85.46 Personal history of malignant neoplasm of prostate; Z81.8 Family history of other mental and behavioral disorders; K44.9 Diaphragmatic hernia without obstruction or gangrene; Z91.19 Patient's noncompliance with other medical treatment and regimen; K21.9 Gastro-esophageal reflux disease without esophagitis; M19.90 Unspecified osteoarthritis, unspecified site
CPT/HCPCS: 36415; 71045; 80053; 80305; 81003; 82140; 83605; 83690; 83735; 83880; 85025; 85610; 85730; 86702; 86704; 86706; 86708; 86709; 86803; 86870; 86886; 86900; 86901; 86920; 87040; 87081; 87340; 93005; 96361; 96374; 96375; 96376; 99291; C9113; G0480; G0482; J0295; J1200; J1756; J1885; J2250; J2270; J2354; J2405; J2765; J3010; J3475; J7030; J8597; P9016; Q0092

== ENCOUNTER 2019-08-06 02:32 | Emergency (ER) | payer OTHER ==
[~2019-08-06] VITALS: Ht 190.5 cm; Wt 90.7 kg
[~2019-08-06 02:32] MED LIST changes: +LIB25 PO; +VITB1I PO
[2019-08-06 02:33] VITALS: BP 133/90
--- NOTE | 2019-08-06 02:33 | NUR ---
to bed # 02 ambulatory
--- NOTE | 2019-08-06 02:51 | NUR ---
54 Y/O MALE PRESENTS TO ED, C/O COUGHING X2 WEEKS. NO SOB/DIFFICULTY BREATHING NOTED. LUNG SOUNDS BILAT CLEAR. PT DENIES CHEST PAIN. C/O CONGESTION ALONG WITH HEADACHE AND BODY ACHES. PT ABLE TO AMBULATE SELF WITH STEADY GAIT. DENIES TAKING ANY MEDICATIONS FOR PAIN. NO FEVER NOTED. PT VSS. ERMD AWARE. WILL CONTINUE TO MONITOR.
[2019-08-06] MEDS ORDERED: KETOROLAC 30 MG/ML VIAL IVP ONE (03:20)
[2019-08-06] MEDS ORDERED: AMPICILLIN/SULBACTAM 3 GM in NACL 0.9% 100 ML IV ONE (03:20)
[2019-08-06] MEDS ORDERED: NACL 0.9% 1,000 ML IV ONE (03:20)
[2019-08-06] MEDS ORDERED: AMPICILLIN/SULBACTAM 3 GM VIAL ONE (03:23)
--- NOTE | 2019-08-06 03:48 | NUR ---
XRAY AT BEDSIDE
[2019-08-06 04:49] VITALS: BP 137/69
--- NOTE | 2019-08-06 04:49 | NUR ---
PT DISCHARGED WITH PAPERWORK. EDUCATED PT REGARDING MEDICATIONS AND D/C INSTRUCTIONS. PT VERBALIZED UNDERSTANDING OF TEACHING. TOLD PT TO FOLLOW UP WITH PCP AND WHEN TO RETURN TO ED. PT AT STABLE CONDITION. ALL QUESTIONS ANSWERED.
== END 2019-08-06 04:49 | disposition home or self-care (01) ==
LOC: MED 02:32
DX: J20.9 Acute bronchitis, unspecified (principal); K21.9 Gastro-esophageal reflux disease without esophagitis; F17.200 Nicotine dependence, unspecified, uncomplicated; Z79.899 Other long term (current) drug therapy; Z85.46 Personal history of malignant neoplasm of prostate
CPT/HCPCS: 71045; 96365; 96375; 99283; J0295; J1885; J7030; Q0092

== ENCOUNTER 2019-09-06 06:00 | Day surgery (SDC) | payer OTHER ==
[~2019-09-06] VITALS: Ht 190.5 cm; Wt 90.7 kg
[2019-09-06] MEDS ORDERED: MIDAZOLAM 2 MG/2 ML VIAL ONE (07:37)
[2019-09-06] MEDS ORDERED: fentaNYL 0.05 MG/ML VIAL ONE (07:37)
[2019-09-06] MEDS ORDERED: LIDOCAINE VISCOUS 2% 20 ML UDC ONE (07:40)
[2019-09-06] MEDS ORDERED: MIDAZOLAM 2 MG/2 ML VIAL IVP ONE (08:30)
== END 2019-09-06 08:30 | disposition home or self-care (01) ==
LOC: MDS 06:00 → MMU 06:10 → MDS 08:30
PROVIDERS: ATTEND Internal Medicine Gastroenterology
DX: K70.30 Alcoholic cirrhosis of liver without ascites (principal); K44.9 Diaphragmatic hernia without obstruction or gangrene; Z90.49 Acquired absence of other specified parts of digestive tract; Z98.890 Other specified postprocedural states; Z79.899 Other long term (current) drug therapy
CPT/HCPCS: 43235; J2250; J3010

== ENCOUNTER 2019-09-20 00:34 | Inpatient (IN) | payer OTHER ==
[~2019-09-20] VITALS: Ht 190.5 cm; Wt 85.7 kg
[2019-09-20] VITALS (9 sets, daily range): BP systolic 98–138; BP diastolic 53–73
--- NOTE | 2019-09-20 00:58 | NUR ---
to lobby a/w bed ambulatory
--- NOTE | 2019-09-20 01:29 | NUR ---
54 YO MALE CO VOMITING BLOOD SINCE TODAY. PT STATES THAT THE PAIN IS IN HIS LOWER ABD AND RADIATES TO LOWER BACK. PAIN IS CURRENTLY 10/10. BS ACTIVE IN ALL 4 QUADS. PT STATES THAT HE IS ON MEDICATION BUT NOT SURE FOR WHAT. NO MED HX. PT IS RESTING IN BED WITH ONE SIDE RAIL UP FOR SAFETY.
[2019-09-20] MEDS ORDERED: NACL 0.9% 1,000 ML IV SCH (02:16)
[2019-09-20] MEDS ORDERED: MORPHINE SULFATE 4 MG/ML SYR IVP ONE (02:20)
[2019-09-20] MEDS ORDERED: OCTREOTIDE ACETATE 1.25 MG in NACL 0.9% 250 ML IV SCH ×2 (02:20→15:00)
[2019-09-20] MEDS ORDERED: PANTOPRAZOLE 40 MG in SODIUM CHLORIDE FLUSH 250 ML IV ONE (02:20)
[2019-09-20] MEDS ORDERED: ONDANSETRON 4 MG/2 ML VIAL IVP ONE (02:20)
[2019-09-20 03:02] LABS: EOSINOPHILS % (AUTO) 0.1 % (0.0-4.0); MEAN CORPUSCULAR HEMOGLOBIN 22 pg (27-31); MEAN CORPUSCULAR HGB CONC 31 g/dL (33-37); MEAN CORPUSCULAR VOLUME 72.3 fL (80-94); MONOCYTES # (AUTO) 1.4 K/uL (0.8-1.0)
[2019-09-20] MEDS ORDERED: PANTOPRAZOLE 40 MG INJ VIAL ONE ×2 (03:14→06:51)
--- NOTE | 2019-09-20 03:15 | NUR ---
PT OUT FOR CT
[2019-09-20] MEDS ORDERED: OCTREOTIDE ACETATE 1000 MCG/5 ML VIAL ONE (03:29)
--- NOTE | 2019-09-20 03:58 | NUR ---
SANDOSTATIN TO RUN AT 5/ML HOUR FOR 24HRS PER DR CADE
[2019-09-20 04:10] LABS: APPEARANCE,URINE CLEAR (CLEAR); BILIRUBIN,URINE NEGATIVE (NEGATIVE); BLOOD, URINE NEGATIVE (NEGATIVE); COLOR,URINE YELLOW (YELLOW); LEUKOCYTE ESTERASE ,URINE NEGATIVE (NEGATIVE); NITRITE, URINE NEGATIVE (NEGATIVE); PH,URINE 5.5 (5.0-9.0); UGLUCOSE NEGATIVE (NEGATIVE)
[2019-09-20 04:12] LABS: ALBUMIN 2.5 g/dL (3.4-5.0); ANION GAP 16.8 (8-16); CREATININE 1.4 mg/dL (0.6-1.3); POTASSIUM 3.8 mmol/L (3.5-5.1)
[2019-09-20 04:20] LABS: BASOPHILS % (AUTO) 0.4 % (0.0-2.0); LYMPHOCYTES # (AUTO) 2.5 K/uL (2.0-11.5); LYMPHOCYTES % (AUTO) 26.9 % (20.5-51.1); MONOCYTES % (AUTO) 15.3 % (1.7-9.3); NEUTROPHILS # (AUTO) 5.3 K/uL (1.8-7.7); NEUTROPHILS % (AUTO) 57.3 % (42.2-75.2); PLATELET COUNT (AUTO) 151 K/uL (140-450); RED BLOOD CELL COUNT(AUTO) 2.05 MIL/uL (4.20-6.10); RED CELL DISTRIBUTION WIDTH 21.5 % (11.6-13.7); WHITE BLOOD COUNT (AUTO) 9.2 K/uL (4.8-10.8)
[2019-09-20 04:26] LABS: HEMATOCRIT 14.8 % (36-52); HEMOGLOBIN 4.6 g/dL (12.0-18.0)
--- NOTE | 2019-09-20 05:09 | NUR ---
Patient will be admitted to care of DR HERNANDEZ. Admited to ICU. Will go to rooM 1. Belongings list completed. Report to DEA HUGGINS.
--- NOTE | 2019-09-20 05:10 | NUR ---
RECEIVED HANDOFF REPORT FROM ER NURSE TREE. PT IS A&OX4. GCS=14. EYES PERRL. ABLE TO FOLLOW COMMANDS. AMBULATORY W/ MINIMAL ASSISTANCE. PT IS ON O2 VIA NC AT 2LPM. LUNG SOUNDS ARE CLEAR. S1 S2 HEARD. PT HAS 10/10 CONSTRICTING PAIN IN ALL QUADRANTS OF ABDOMEN. PAIN IS WORSE UPON PALPATING. BOWEL SOUNDS PRESENT. ABLE TO USE URINAL W/O ASSISTANCE. CAP REFILL <3 SECONDS. SKIN INTACT. HOB OF BED 45 DEGREES, LOCKED, LOW SETTING. CALL LIGHT WITHIN REACH. WILL CONTINUE TO MONITOR.
[2019-09-20] MEDS ORDERED: PANTOPRAZOLE 40 MG INJ VIAL IVP STA (06:09)
[2019-09-20] MEDS: ONDANSETRON 4 MG/2 ML VIAL IVP PRN ×2 (06:55→10:48)
[2019-09-20] MEDS: PANTOPRAZOLE 80 MG in NACL 0.9% 100 ML IV SCH ×2 (06:55→18:06)
[2019-09-20] MEDS: MORPHINE SULFATE 2 MG/ML SYR IVP PRN ×3 (06:56→14:57)
[2019-09-20] MEDS ORDERED: LORazepam 2 MG/ML VIAL IVP PRN (07:00)
--- NOTE | 2019-09-20 07:30 | NUR ---
BEDSIDE REPORT RECEIVED FROM PROPERTY ECONOMIST NURSE, PT AAOX4, RESP EVEN UNLABORED ON RA, CLEAR BS ALL THRUOUT, VITALS STABLE ON MONITOR, SLIGHTLY TACHYCARDIC AT 109 (ST), SKIN WARM DRY COLOR WNL, PT WITH EMESIS BAG WITH COFFEE GROUND EMESIS APPROX 30ML, NO ACTIVE VOMITING AT THIS TIME, ABD SOFT, NON DISTENDED, BS PRESENT X4Q, PT REPORTS DARK STOOL YESTERDAY, PT CONTINENT, URINAL AT BEDSIDE, SANDOSTATIN INFUSING AT 10ML/HR, PROTONIX AT 8MG/HR (10ML/HR), 22G AT RIGHT HAND, 20G AT RFA , SITE WNL, PT REPORTS PAIN IS MANAGEABLE NOW AFTER MEDICATION, ALL SAFETY MEASURES IN PLACE, PT REFUSES REPOSITIONING, CALL CHANCE AT BEDSIDE, POC REVIEWED, ALL QUESTIONS ASKED AND ANSWERED, DENIES ANY NEEDS AT THIS TIME, WILL CONTINUE TO MONITOR.
[2019-09-20] MEDS: DEXT 5% /NACL 0.9% 1,000 ML IV SCH (08:14)
--- NOTE | 2019-09-20 08:44 | NUR ---
DISCHARGE PLANNING: THIS IS A 54 Y/O MALE PATIENT FROM HOME, WHO CAME IN DUE TO VOMITING WITH BLOODY EMESIS AND HEMATOCHEZIA ASSOCIATED WITH LOWER ABDOMINAL PAIN RADIATING TO HIS LOWER BACK. PAST MEDICAL HISTORY INCLUDE PROSTATE CANCER, CHRONIC PANCREATITIS. INITIAL DIAGNOSIS OF INTESTINAL BLEED. CURRENT LABS INCLUDE WBC 90.2, H/H 4.6/14.8, NA/K 141/3.8, BUN/CREA 70/1.4, AST/ALT 77/39 AND LIPASE 32. ON PROTONIX DRIP. CT ABD/PELVIS SHOWED RIGHT BASILAR ATELECTASIS VS INFILTRATE AND FATTY CIRRHOTIC LIVER. NO CONSULTS YET AT THIS TIME. DC PLAN BACK TO HOME ONCE STABLE.
[2019-09-20] MEDS: THIAMINE IV SCH (08:59)
[2019-09-20] MEDS: NACL 0.9% IV SCH (08:59)
[2019-09-20] MEDS: FOLIC ACID 1 MG TAB PO SCH (08:59)
[2019-09-20] MEDS ORDERED: THIAMINE 200 MG/2 ML VIAL IV SCH (09:00)
--- NOTE | 2019-09-20 10:15 | NUR ---
PER BLOOD BANK JAEL, ANTIBODY SCREENING WAS NOT SENT TO [facility] TODAY, [facility] HAS RECORD OF PT'S ANTIBODIES FROM [facility] 08/2018, BLOOD BANK SENT BLOOD BASED ON DEC'S RESULTS, PER JAEL, PATHOLOGY Isaias FENTON , BLOOD CAN BE TRANSFUSED NOW IF NEEDED EMERGENTLY, IF NEED ANTIBODY CROSS MATCH NEEDED, IT NEEDS TO BE SENT TO [facility] AND WILL NOT BE AVAIALBLE FOR TRANSFUSION UNTIL LATER THIS AFTERNOON. DR HERNANDEZ PAGED
--- NOTE | 2019-09-20 10:30 | NUR ---
DR HERNANDEZ PAGED AGAIN
--- NOTE | 2019-09-20 10:35 | NUR ---
DR HERNANDEZ CALLED BACK, PER DR HERNANDEZ, GIVE ONE UNIT OF BLOOD AVAILABLE NOW, THEN GIVE 3 MORE CROSS MATCHED BLOOD LATER. BENEDICTO ELDER NOTIFIED.
--- NOTE | 2019-09-20 11:15 | NUR ---
Nurse Tech Note: Basic Screen: Yes High Risk DC Screen [place]: JOSEPH ARCHULETA [place] Relationship: MOTHER Pre-Admission Living Arrangements: Lives with Other Prior ADL Independent Current Home Health Name/Tel: N/A Current DME/02 Name/Tel: N/A Current Hospice Name/Tel: N/A Current Dialysis Name/Tel: N/A Healthcare Decision Maker: Patient Advance Directive No Physician Orders for Life Sustaining Treatment Form No Patient/Family Have Educational Needs No Information Taught: Advance Directive Community Resources Person Taught: Patient Teaching Tools: Verbal Factors Affecting Learning: None Participation Level: Refused Evaluation: Verbalizes Understanding Needs Additional Education: No Discipline: Case Mgt/Social Svcs Tentative Discharge Plan/Destination: No Needs Identified Will require assistance post discharge: No Referred to Winder Tender: No Tentative Discharge Plan Summary: Patient is a 54-year-old male admitted for gastro intestinal bleed. Patient has PMHX of prostate cancer and GERD. Patient was admitted from home where patient lives with his mother. SW met with patient at bedside to verify demographics. Patient reported that no history of mental health but stated that he has a history of alcoholism. Patient reports binge drinking 3x a year with his last episode of binge drinking leading him to this hospitalization. Patient reported drinking 3 fifth liters of vodka. SW assessed patient for risk factors and offered substance abuse resources. Patient stated that he has all the information he needed and refused. Patient's tentative discharge plan is to return home. No further needs identified. Signature: KVNG Carrillo Date: Sep 20, 2019 Time: 11:13
--- NOTE | 2019-09-20 11:20 | NUR ---
FIRST UNIT OF PRBC STARTED AT THIS TIME, DOUBLE VERIFIED WITH DEA IBARRA, PT AWARE OF S/S OF REACTIONS, WILL MONITOR CLOSELY.
--- NOTE | 2019-09-20 12:05 | NUR ---
BLOOD TRANSFUSION ONGOING, NO S/S OF REACTIONS NOTED, 3RD IV STARTED TO LEFT FA.
[2019-09-20] MEDS: METOCLOPRAMIDE 10 MG/2 ML INJ VIAL IVP SCH ×2 (12:13→18:06)
--- NOTE | 2019-09-20 12:50 | NUR ---
PT RESTING QUIETLY, PT STATES NAUSEA HAS IMPROVED AFTER REGLAN, BLOOD TRANSFUSION CONTINUES, NO TRANSFUSION REACTION NOTED.
--- NOTE | 2019-09-20 13:48 | NUR ---
1ST UNIT OF PRBC COMPLETED, NO S/S OF REACTIONS NOTED.
--- NOTE | 2019-09-20 14:30 | NUR ---
HORSERADISH MAKER AT BEDSIDE FOR H/H DRAW.
[2019-09-20] MEDS ORDERED: PROBIOTIC SCREEN 1 EA MISC MC PRN (15:00)
--- NOTE | 2019-09-20 15:00 | NUR ---
DR Saranya LOFTON AT BEDSIDE.
[2019-09-20 15:01] LABS: HEMATOCRIT 15.6 % (36-52)
--- NOTE | 2019-09-20 15:05 | NUR ---
DR HERNANDEZ PAGED FOR HEMOGLOBIN 5.0 AFTER 1ST UNIT OF BLOOD TRANSFUSION.
--- NOTE | 2019-09-20 15:15 | NUR ---
DR LOFTON AT BEDSIDE, NO EGD WILL BE DONE SINCE IT WAS DONE HERE RECENTLY, OK FOR PATIENT TO EAT FULL LIQ DIET AND ADVANCE TOLERATED PER DR LOFTON.
--- NOTE | 2019-09-20 15:20 | NUR ---
DR HERNANDEZ CALLED BACK, HEMOGLOBIN LEVEL 5.0, PER DR HERNANDEZ, GIVE SECOND UNIT OF O POSITIVE PRBC THAT IS AT THE HOSPITAL, THEN GIVE 2 MORE UNITS WHEN ARRIVES FROM [facility].
--- NOTE | 2019-09-20 15:30 | NUR ---
2ND UNIT OF PRBC STARTED, VERIFIED BY 2RNS
[2019-09-20] MEDS ORDERED: PHYTONADIONE 10 MG/ML AMP SUBQ SCH (16:00)
--- NOTE | 2019-09-20 16:06 | NUR ---
PATIENT HAS BEEN SCREENED AND CATEGORIZED MODERATE NUTRITION RISK. PATIENT WILL BE SEEN WITHIN 3-5 DAYS OF ADMISSION. 09/22/19 09/24/[address]
[2019-09-20] MEDS: chlordiazePOXIDE 25 MG CAP PO SCH (17:05)
--- NOTE | 2019-09-20 17:17 | NUR ---
DR PADILLA AT BEDSIDE, PT DOWNGRADED TO TELE. REPEAT LABS IN AM.
--- NOTE | 2019-09-20 18:30 | NUR ---
BROTHER HAYDEE DRAKE CALLED TO UPDATE ON PT'S CONDITION, WILL HAVE THE STARCH MANGLE TENDER CALL HIM TOMORROW TO DISCUSS PROGNOSIS AND FUTURE PLAN. Addendum: 09/20/19 at 1854 by Chichi Hernandez RN DISREGARD ABOVE, WRONG PATIENT
--- NOTE | 2019-09-20 18:40 | NUR ---
PT UP OUT OF BED TO BEDSIDE COMMODE WITH MINIMAL ASSIST, DARK STOOL X1, PT CONTINUES WITH PROTONIX DRIP, IVF AT 100ML/HR, IV SITES WNL, PT PEREZ 50% DINNER FULL LIQ, NO LONGER VOMITING.
--- NOTE | 2019-09-20 19:00 | NUR ---
PATIENT ABLE TO USE CALL LIGHT, NOTIFYING NURSE FOR BEDSIDE COMMODE NEEDS. PROVIDED CHUCKS AND WIPES. ASSISTED PATIENT TO BEDSIDE COMMODE AND CALL LIGHT WITHIN REACH, INSTRUCTED TO CALL RN WHEN FINISHED.
--- NOTE | 2019-09-20 19:08 | NUR ---
PATIENT BACK IN BED, HAD MODERATE SIZED BLACK TARRY STOOL. CLEANED COMMODE AND EMPTIED. PATIENT STABLE.
--- NOTE | 2019-09-20 19:10 | NUR ---
RECEIVED REPORT FROM DAYSHIFT NURSE AT PATIENTS BEDSIDE, PATIENT ANOx4, ABLE TO MAKE NEEDS KNOWN AND FOLLOWS ALL COMMANDS. SKIN IS WARM AND DRY, INTACT, TEMP 99.6. ON ROOM AIR, SATURATIONS 98%, LUNG SOUNDS CLEAR, NO SIGNS OF COUGH OR CONGESTION. PATIENT DENIES NAUSEA AT THIS TIME. S1S2, SR ON MONITOR, HEART RATE 91 BPM. PERIPHERAL IV's TO RIGHT HAND, 22G, RIGHT FOREARM 20G, AND LEFT FOREARM 22G. ALL SITES PATENT AND ASYMPTOMATIC. D5NS INFUSING AT 100 ML/HR, AND PROTONIX AT 10 ML/HR-8MG/HR. ABDOMEN IS LARGE AND NONTENDER, WITH ACTIVE BOWEL SOUNDS. BEDSIDE COMMODE AND URINAL AT BEDSIDE AND WITHIN REACH. BED LOCKED AND IN LOWEST POSITION. SIDERAILS UP x2, PATIENT UPDATED ON CAREPLAN AND VERBALIZES UNDERSTANDING. PATIENT COMPLAINING OF PAIN 9/10 AT STOMACH, LOWER BACK, AND NECK, MORPHINE WAS D/C'd. WILL CONTINUE TO MONITOR AND WILL FOLLOWUP WITH PAIN MEDS.
--- NOTE | 2019-09-20 19:30 | NUR ---
SPOKE WITH DR. MARTIN, NEW ORDERS FOR PRN PAIN MEDS: OXYCODONE PO 5 MG- FOR MODERATE PAIN (4-6) PRN Q4H OXYCODONE PO 10 MG-FOR SEVERE PAIN (7-10) PRN Q4H
[2019-09-20] MEDS ORDERED: oxyCODONE 5 MG TAB PO PRN (19:40)
--- NOTE | 2019-09-20 20:00 | NUR ---
PT TRANSFERRED VIA W/C ESCORTED BY NYDIA MALIN AND IVANIA ASPARAGUS BUNCHER NURSES. REPORT AT BEDSIDE GIVEN BY IVANIA MALIN PT AMBULATED TO TOILET INDEPENDENTLY. PT HAS 3 IV SITES 22G ON R HAND, 20G RFA AND 22G LFA. PT IS RUNNING D5NS AT 100. AND PROTONIX AT 10MLS/HR. PT SKIN INTACT HE IS AOX4 ON FULL LIQUID DIET. PT C/O OF 9/10 PAIN IN ABDOMEN. WILL MEDICATE WITH NEW ORDERS RECEIVED FORM SUPERVISOR MAIL CARRIERS DR. MARTIN. ALL UNIVERSAL FALLS PRECAUTIONS IN PLACE.
--- NOTE | 2019-09-20 20:05 | NUR ---
PATIENT TRANSFERRED TO [facility] FLOOR BED 111B, VIA WHEELCHAIR AND CONNECTED TO TELE MONITOR. PATIENT NEEDING TOILET AGAIN , ORIENTED TO CALL LIGHT. VITALS PRIOR TO TRANSFER: TEMP: 99.4, HR: 89, BP: 131/73, RR: 12. ENDORSED CARE TO DEA GRADY. ASSISTED PATIENT TO BED AND ORIENTED TO NEW ROOM AND NURSE. ENDORSED NEW MED ORDER. ALL NEEDS MET AT THIS TIME.
[2019-09-20] MEDS: oxyCODONE 10 MG TABER PO PRN (20:41)
[2019-09-20] MEDS: SODIUM FERRIC GLUCONATE 125 MG in NACL 0.9% 100 ML IV SCH (20:51)
[2019-09-20] MEDS: LACTULOSE 20 GM/30 ML UDC PO SCH (20:53)
--- NOTE | 2019-09-20 21:00 | NUR ---
PT GIVEN PO/PRN OXYCODONE FOR SEVERE ABDOMINAL PAIN. PT SITTING IN BED, FLUIDS RUNNNG ORDERED AND ALL REQUESTS ATTENDED AND ALL UNIVERSAL FALLS IN PLACE.
[2019-09-20] MEDS ORDERED: SIMETHICONE 80 MG TAB.CHEW PO PRN (22:45)
[2019-09-21] MEDS: DEXT 5% /NACL 0.9% 1,000 ML IV SCH ×3 (00:13→17:02)
[2019-09-21] MEDS: METOCLOPRAMIDE 10 MG/2 ML INJ VIAL IVP SCH ×5 (00:14→23:55)
--- NOTE | 2019-09-21 00:30 | NUR ---
PT C/O OF GAS, CALLED HAND UMBRELLA TIPPER MD MARTIN AND RECEIVED AN ORDER FOR SIMETHICONE 80MG TID PRN. PT WAS GIVEN 1 CHEWABLE ALONG WITH OXYCODONE 10MG FOR C/O OF SEVERE ABDOMINAL PAIN. ALSO LAB WAS CALLED REGARDING THE STATUS OF HIS ORDERED PACKED RED BLOOD CELLS, NATHALIE IN LAB SAID SHE WOULD CALL BACK WHEN BLOOD IS READY.
[2019-09-21] MEDS: oxyCODONE 10 MG TABER PO PRN ×5 (01:01→23:55)
--- NOTE | 2019-09-21 02:00 | NUR ---
PT STARTED ON 1 ST UNIT OF PACKED RED BLOOD CELLS, VERIFIED UNIT WITH CHARGE NURSE SURINDER. PREV/S FOLLOWS: T 97.2 P 88 R 18 B/P 131/57 02 97% ON ROOM AIR. WILL CONTINUE TO MONITOR FOR ANY REACTION.
--- NOTE | 2019-09-21 02:15 | NUR ---
PT CONTINUES BLOOD TRANSFUSION V/S FOLLOWS: T 97.2 P 90 R 20 B/P 139/73 02 100% ON ROOM AIR. NO REACTION NOTED AND PT HAD NO C/O VOICED.
[2019-09-21] MEDS ORDERED: OCTREOTIDE ACETATE 1.25 MG in NACL 0.9% 250 ML IV SCH ×2 (02:20→05:00)
--- NOTE | 2019-09-21 02:45 | NUR ---
PT CONTINUES ON BLOOD TRANSFUSION, NO REACTION NOTED AND NO C/O VOICED. V/S FOLLOWS: T 97.7 P 85 R 20 B/P 123/60 02 94% ON ROOM AIR.
--- NOTE | 2019-09-21 03:45 | NUR ---
PT BLOOD TRANSFUSION CONTINUES, NO S/S OF PAIN OR DISTRESS NOTED. NO REACTIONS OF TRANSFUSION NOTED V/S FOLLOWS: T 97.2 P 90 R 20 B/P 135/73 02 97% ON ROOM AIR.
--- NOTE | 2019-09-21 06:35 | NUR ---
PT C/O SEVERE PAIN IN ABDOMEN 02/23 GIVEN PO/PRN OXYCODONE 10MG WELL ORDERED REGLAN IV PUSH. PRE TRANSFUSION V/S FOLLOWS: T 97.2 P 94 R18 B/P 117/69 02 98% ON ROOM AIR.
--- NOTE | 2019-09-21 06:58 | NUR ---
TRANSFUSION STARTED FOR 2ND UNIT. NO C/O VOICED AND NO REACTION NOTED. WILL ENDORSE POC TO DAYSHIFT NURSES.
[2019-09-21] MEDS: PANTOPRAZOLE 80 MG in NACL 0.9% 100 ML IV SCH ×3 (07:16→23:55)
--- NOTE | 2019-09-21 07:30 | NUR ---
RECEIVED BEDSIDE REPORT FROM DIGITIZER OPERATOR NURSE MIGUEL A FOR CONTINUITY OF CARE. PT AWAKE AND SITTING UP ON BED. PATIENT IS AAOX4, ABLE TO MAKE NEEDS KNOWN AND COMMUNICATE APPROPRIATELY. RESPIRATION EVEN AND UNLABORED ON RA. DENIED PAIN, SOB, AND DIZZINESS. NO SIGNS OF BLOOD TRANSFUSION ALLERGIC REACTIONS NOTED. IV ON R HAND 22G, CLEAN AND INTACT, INFUSING PROTONIX AT 10 ML/HR. RFA 20G, CLEAN AND INTACT, INFUSING BLOOD AT 100 ML/HR. LFA 22G, CLEAN AND INTACT, SALINE LOCK. SKIN CLEAN AND DRY. PT IS CONTINENT AND ABLE TO AMBULATE TO BATHROOM WITH STEADY GAIT. DISCUSSED PLAN OF CARE WITH PT AND PT VERBALIZED UNDERSTANDING. TELE MONITOR ATTACHED. SAFETY MEASURES IN PLACE. BED IN LOW POSITION AND CALL LIGHT WITHIN REACH. INSTRUCTED PT TO USE THE CALL LIGHT FOR ANY ASSISTANCE AND PT AWARE.
[2019-09-21] MEDS ORDERED: FOLIC ACID 1 MG TAB PO SCH (09:00)
[2019-09-21] MEDS: LACTULOSE 20 GM/30 ML UDC PO SCH ×2 (09:25→20:24)
[2019-09-21] MEDS: chlordiazePOXIDE 25 MG CAP PO SCH ×3 (09:25→17:01)
[2019-09-21] MEDS: FOLIC ACID 1 MG TAB PO SCH (09:26)
--- NOTE | 2019-09-21 09:26 | NUR ---
ADMINISTERED ALL PO MEDS PER MD ORDER, MEDS EDUCATION PROVIDED AND PT VERBALIZED OK. PT TOLERATED PO MEDS. DENIED PAIN, SOB, VOMITING AND DIZZINESS. NO BLOOD TRANSFUSION ALLERGIC REACTION NOTED. PT AWAKE AND WATCHING TV ON BED. REQUESTED FOR ICE AND JUICE, PROVIDED. TELE MONITOR ATTACHED. SAFETY MEASURES IN PLACE. INSTRUCTED PT TO USE THE CALL LIGHT FOR ANY ASSISTANCE AND PT AWARE.
--- NOTE | 2019-09-21 09:45 | NUR ---
BLOOD TRANSFUSION COMPLETED AND VITAL SIGNS TAKEN; TEMP 98.1 TEMPORAL BP 124/58 PULSE 75 RR 20 SPO2 97% RA DENIED PAIN, SOB, DIZZINESS. NO SIGNS OF DISTRESS NOTED. PT AWAKE AND WATCHING TV ON BED AT THIS TIME. TELE MONITOR ATTACHED. SAFETY MEASURES IN PLACE. BED IN LOW POSITION AND CALL LIGHT WITHIN REACH.
[2019-09-21] MEDS: SODIUM FERRIC GLUCONATE 125 MG in NACL 0.9% 100 ML IV SCH ×2 (10:41→20:21)
--- NOTE | 2019-09-21 10:41 | NUR ---
ADMINISTERED FERRIC GLUCONATE VIA IVPB PER MD ORDER, MED EDUCATION PROVIDED TO PT AND PT SAID OK. DR PORTER IS TALKING AND ASSESSING PT AT BEDSIDE. DR PORTER WAS AWARE THAT BLOOD TRANSFUSION COMPLETED AT 0930 AND SAID HE WILL ORDER CBC AROUND NOON. NO SIGNS OF DISTRESS NOTED. TELE MONITOR ATTACHED. SAFETY MEASURES IN PLACE.
[2019-09-21] MEDS: diphenhydrAMINE 50 MG CAP PO PRN ×3 (11:28→23:55)
--- NOTE | 2019-09-21 11:31 | NUR ---
PATIENT COMPLAINING OF ITCHING AND SKIN DRYNESS. BENADRYL WAS GIVEN ORDERED. PATIENT IS IN STABLE CONDITION. TELE MONITOR ATTACHED. SAFETY MEASURES IN PLACE. WILL CONTINUE TO MONITOR.
[2019-09-21] MEDS: THIAMINE IV SCH (12:10)
[2019-09-21] MEDS: NACL 0.9% IV SCH (12:10)
--- NOTE | 2019-09-21 12:11 | NUR ---
ADMINISTERED SCHEDULED MEDICATIONS TO PATIENT. PT IS SITTING UP IN BED GETTING READY TO EAT LUNCH. NO DISTRESS NOTED. TELE MONITOR ATTACHED. SAFETY MEASURES IN PLACE. WILL CONTINUE TO MONITOR.
[2019-09-21 12:45] LABS: BASOPHILS # (AUTO) 0.1 K/uL (0.00-0.22); BASOPHILS % (AUTO) 2.3 % (0.0-2.0); EOSINOPHILS # (AUTO) 0.1 K/uL (0-0.4); LYMPHOCYTES % (AUTO) 30.7 % (20.5-51.1); MEAN CORPUSCULAR HEMOGLOBIN 26 pg (27-31); MEAN CORPUSCULAR HGB CONC 32 g/dL (33-37); MEAN CORPUSCULAR VOLUME 79.8 fL (80-94); MONOCYTES # (AUTO) 0.6 K/uL (0.8-1.0); MONOCYTES % (AUTO) 17.9 % (1.7-9.3); NEUTROPHILS # (AUTO) 1.5 K/uL (1.8-7.7); NEUTROPHILS % (AUTO) 47.1 % (42.2-75.2); PLATELET COUNT (AUTO) 51 K/uL (140-450); PROTHROMBIN TIME 17.5 secs (10.8-13.4); RED BLOOD CELL COUNT(AUTO) 2.42 MIL/uL (4.20-6.10); RED CELL DISTRIBUTION WIDTH 22.4 % (11.6-13.7); WHITE BLOOD COUNT (AUTO) 3.3 K/uL (4.8-10.8)
[2019-09-21 12:49] LABS: ALBUMIN 2.4 g/dL (3.4-5.0); ANION GAP 7.7 (8-16); CARBON DIOXIDE 31.7 mmol/L (21-32); CREATININE 1.1 mg/dL (0.6-1.3); POTASSIUM 3.4 mmol/L (3.5-5.1); TOTAL BILIRUBIN 1.6 mg/dL (0.0-1.0)
[2019-09-21 12:54] LABS: HEMATOCRIT 19.3 % (36-52); HEMOGLOBIN 6.2 g/dL (12.0-18.0)
--- NOTE | 2019-09-21 13:00 | NUR ---
RECEIVED CRITICAL LAB FOR HGB 6.2 AND HCT 19.3, PAGED DR PORTER AND AWAITING FOR DR TO RETURN CALL.
--- NOTE | 2019-09-21 13:15 | NUR ---
RECEIVED A CALL BACK FROM DR PORTER. INFORMED DR PORTER WITH CRITICAL LAB VALUES AND 3.4 L POTASSIUM. RECEIVED ORDERS FROM DR PORTER, TRANSFUSE 2 UNITS OF BLOOD AND K-DUR 40 MEQ PO ONCE. REPEATED AND CONFIRMED ORDER WITH DR PORTER.
--- NOTE | 2019-09-21 13:39 | NUR ---
ADMINISTERED PATIENT'S SCHEDULED PO MEDICATION. PT TOLERATED WELL. IV PROTONIX IS STILL INFUSING AT THIS TIME, NEW BAG NOT YET HANG. PT COMPLAINED OF 9/10 PAIN ON HIS ABDOMEN, NECK AND LOWER BACK, WILL MEDICATED. TELE MONITOR ATTACHED. SAFETY MEASURES IN PLACE.
--- NOTE | 2019-09-21 13:52 | NUR ---
PT. WAS MEDICATED FOR FOR COMPLAINTS OF 9/10 PAIN TO ABDOMEN, LOWER BACK, AND NECK. PO PAIN MED GIVEN PRESCRIBED. SCHEDULED PO POTASSIUM WAS ALSO GIVEN, ORDERED. WILL REASSESS PAIN. TELE MONITOR ATTACHED. SAFETY MEASURES IN PLACE; CALL LIGHT WITHIN REACH.
[2019-09-21] MEDS ORDERED: POTASSIUM CHLORIDE 10 MEQ TABER PO SCH (14:00)
--- NOTE | 2019-09-21 14:22 | NUR ---
PT HAS SMALL BM, COLOR ZEYNEP AND YELLOW. NO SIGNS OF ACTIVE BLEEDING. PT AWAKE AND RESTING ON BED AT THIS TIME. DENIED PAIN, SOB AND DIZZINESS. REQUESTED FOR AN ORANGE JUICE, PROVIDED. NO SIGNS OF DISTRESS NOTED. TELE MONITOR ATTACHED. SAFETY MEASURES IN PLACE.
--- NOTE | 2019-09-21 14:48 | NUR ---
REASSESSED PT'S PAIN. PATIENT STATED THAT HIS PAIN WAS PARTIALLY RELIEVED BY PO PAIN MEDICATION, AND IS NOW AT A TOLERABLE LEVEL. HE IS RESTING IN BED, NO DISTRESS NOTED. TELE MONITOR IS ATTACHED. SAFETY MEASURES ARE IN PLACE; CALL LIGHT WITHIN REACH. WILL CONTINUE TO MONITOR.
--- NOTE | 2019-09-21 15:00 | NUR ---
PATIENT IS AWAKE AND RESTING IN BED. ASKED PATIENT IF THERE WAS ANYTHING HE NEEDED, HE STATED THAT HE WAS OK, AT THIS TIME. NO DISTRESS NOTED. TELE MONITOR ATTACHED. SAFETY MEASURES IN PLACE. WILL CONTINUE TO MONITOR.
--- NOTE | 2019-09-21 17:03 | NUR ---
PROTONIX BAG FINISHED INFUSING; HUNG ANOTHER BAG IF PROTONIX WHICH IS INFUSING AT 10 ML/HR. PO LIBRIUM WAS ADMINISTERED PER ORDERS, PT TOLERATED WELL. NO DISTRESS NOTED. TELE MONITOR ATTACHED. SAFETY MEASURES IN PLACE. WILL CONTINUE TO MONITOR.
--- NOTE | 2019-09-21 17:24 | NUR ---
[facility] SPOKE WITH RADHA TO FOLLOW UP WITH BLOOD. PER RADHA, BLOOD IS NOT READY YET AND THEY WILL CALL ONCE IT'S READY.
--- NOTE | 2019-09-21 18:04 | NUR ---
PT COMPLAINED OF ITCHINESS AND PAIN, AND REQUESTED PO BENADRYL AND PAIN MEDS. HE STATED THAT HIS PAIN LEVEL WAS AN 8.5 OUT OF 10, TO HIS NECK, LOWER BACK, AND ABDOMEN, AND STATED THAT HE WAS ITCHY "ALL OVER". LOTION WAS PROVIDED AND APPLIED TO PATIENT, BUT HE STATED THAT IT ONLY PROVIDED MINIMAL RELIEF. PRN BENADRYL AND OXYCODONE WERE ADMINISTERED PER ORDERS. PATIENT IS SITTING UP IN BED, GETTING READY TO HAVE DINNER. TELE MONITOR IS ATTACHED, SAFETY MEASURES IN PLACE. WILL CONTINUE TO MONITOR
--- NOTE | 2019-09-21 18:41 | NUR ---
PATIENT WAS GIVEN SCHEDULED IV PUSH MED, ORDERED. IV IN RT HAND WAS REMOVED DUE TO INFILTRATION. IV CATHETER TIP WAS INTACT, AND IN ONE PIECE. PATIENT TOLERATED WELL. PT IS AWAKE AND WATCHING TV. NO DISTRESS NOTED. TELE MONITOR ATTACHED. SAFETY MEASURES IN PLACE. WILL CONTINUE TO MONITOR.
--- NOTE | 2019-09-21 19:28 | NUR ---
ENDORSED PT AT BEDSIDE TO TRANSFER STATION ATTENDANT NURSE LITO FOR CONTINUITY OF CARE. PT IS AWAKE AND RESTING ON BED. NO SIGNS OF DISTRESS NOTED. SAFETY MEASURES IN PLACE. TELE MONITOR ATTACHED. PT IS IN STABLE CONDITION
--- NOTE | 2019-09-21 19:30 | NUR ---
RECEIVED PT SLEEPING, EASILY AROUSABLE, AAOX4, ABLE TO MAKE NEEDS KNOWN, VITAL SIGNS STABLE, DENIES ANY PAIN, IVF AND PROTONIX DRIP INFUSING WELL, PLAN OF CARE DISCUSSED, AWAITING 2 UNITS PRBC FOR TRANSFUSION TONIGHT, SAFETY MEASURES IN PLACE, CALL LIGHT WITHIN REACH.
[2019-09-21 20:00] VITALS: BP 112/48
--- NOTE | 2019-09-21 21:45 | NUR ---
PT AWAKE, NO DISTRESS NOTED, 1ST UNIT PRBC STARTED, MONITORED CLOSELY FOR REACTION, VITAL SIGNS PER PROTOCOL.
--- NOTE | 2019-09-21 22:55 | NUR ---
PT AMBULATED TO BR WITH STEADY GAIT, BM WITH LOOSE STOOL DUE TO LACTULOSE, BACK TO BED, COMPLAINING OF ABD PAIN, WILL MEDICATE PRN, BLOOD TRANSFUSION ON GOING, MONITORED CLOSELY.
[2019-09-22] VITALS: BP 117/67
--- NOTE | 2019-09-22 01:15 | NUR ---
IST UNIT PRBC DONE, NO REACTION NOTED, VITAL SIGNS STABLE, SECOND UNIT PRBC STARTED, MONITORED FOR REACTION, VITAL SIGNS PER PROTOCOL.
[2019-09-22] MEDS: DEXT 5% /NACL 0.9% 1,000 ML IV SCH ×4 (01:50→21:50)
[2019-09-22 04:00] VITALS: BP 118/60
[2019-09-22] MEDS: oxyCODONE 10 MG TABER PO PRN ×4 (04:46→23:04)
--- NOTE | 2019-09-22 05:00 | NUR ---
2ND UNIT BLOOD TRANSFUSION DONE, NO REACTION NOTED, VITAL SIGNS STABLE, RESUMED IVF OF D5NS AT 100ML/H, MEDICATED PRN FOR ABDOMINAL PAIN WITH OXYCONTIN PO, MONITORED CLOSELY.
[2019-09-22] MEDS: METOCLOPRAMIDE 10 MG/2 ML INJ VIAL IVP SCH ×4 (05:57→23:04)
[2019-09-22] MEDS: diphenhydrAMINE 50 MG CAP PO PRN ×3 (05:57→23:04)
--- NOTE | 2019-09-22 07:15 | NUR ---
PT AWAKE, NO SIGNS OF DISTRESS, REPORT GIVEN TO DEA DEL VALLE FOR CONTINUITY OF CARE.
--- NOTE | 2019-09-22 07:17 | NUR ---
RECEIVED BEDSIDE REPORT FROM EYE PHYSICIAN NURSE LITO FOR CONTINUITY OF CARE. PT IS RESTING ON BED, AROUSABLE TO VOICE. PATIENT IS AAOX4, ABLE TO MAKE NEEDS KNOWN AND COMMUNICATE APPROPRIATELY. RESPIRATION EVEN AND UNLABORED ON RA. DENIED PAIN, SOB, AND DIZZINESS. NO SIGNS OF BLOOD TRANSFUSION ALLERGIC REACTIONS NOTED. IV ON RFA 20G, CLEAN AND INTACT, INFUSING IVF PER MD ORDER. LFA 22G, CLEAN AND INTACT, SALINE LOCK. SKIN CLEAN AND DRY. PT IS CONTINENT AND ABLE TO AMBULATE TO BATHROOM WITH STEADY GAIT. DISCUSSED PLAN OF CARE WITH PT AND PT VERBALIZED UNDERSTANDING. TELE MONITOR ATTACHED. SAFETY MEASURES IN PLACE. BED IN LOW POSITION AND CALL LIGHT WITHIN REACH. INSTRUCTED PT TO USE THE CALL LIGHT FOR ANY ASSISTANCE AND PT AWARE.
[2019-09-22 07:55] LABS: BASOPHILS # (AUTO) 0.1 K/uL (0.00-0.22); BASOPHILS % (AUTO) 1.9 % (0.0-2.0); EOSINOPHILS # (AUTO) 0.1 K/uL (0-0.4); EOSINOPHILS % (AUTO) 3.3 % (0.0-4.0); HEMATOCRIT 21.7 % (36-52); HEMOGLOBIN 7.2 g/dL (12.0-18.0); LYMPHOCYTES % (AUTO) 29.1 % (20.5-51.1); MEAN CORPUSCULAR HEMOGLOBIN 27 pg (27-31); MEAN CORPUSCULAR HGB CONC 33 g/dL (33-37); MEAN CORPUSCULAR VOLUME 80.9 fL (80-94); MONOCYTES # (AUTO) 0.5 K/uL (0.8-1.0); MONOCYTES % (AUTO) 16.4 % (1.7-9.3); NEUTROPHILS # (AUTO) 1.6 K/uL (1.8-7.7); NEUTROPHILS % (AUTO) 49.3 % (42.2-75.2); PLATELET COUNT (AUTO) 52 K/uL (140-450); RED BLOOD CELL COUNT(AUTO) 2.68 MIL/uL (4.20-6.10); RED CELL DISTRIBUTION WIDTH 21.6 % (11.6-13.7); WHITE BLOOD COUNT (AUTO) 3.3 K/uL (4.8-10.8)
[2019-09-22 08:00] VITALS: BP 124/72
[2019-09-22] MEDS: THIAMINE IV SCH (09:32)
[2019-09-22] MEDS: NACL 0.9% IV SCH (09:32)
[2019-09-22] MEDS: LACTULOSE 20 GM/30 ML UDC PO SCH ×2 (09:32→20:05)
[2019-09-22] MEDS: chlordiazePOXIDE 25 MG CAP PO SCH ×3 (09:32→17:18)
[2019-09-22] MEDS: FOLIC ACID 1 MG TAB PO SCH (09:33)
--- NOTE | 2019-09-22 09:33 | NUR ---
PROTONIX IV IS STILL INFUSING, ABOUT 30 ML IN BAG, WILL HANG A NEW BAG SHORTLY. ADMINISTERED SCHEDULED AM MEDS PER MD ORDER, MEDS EDUCATION PROVIDED AND PT SAID OK, PT TOLERATED MEDS WELL. PT REQUESTED FOR CRANBERRY JUICE, PROVIDED. PT AWAKE AND RESTING ON BED. DENIED PAIN, SOB, AND DIZZINESS. NO SIGNS OF DISTRESS NOTED. TELE MONITOR ATTACHED. SAFETY MEASURES IN PLACE. INSTRUCTED PT TO USE THE CALL LIGHT FOR ANY ASSISTANCE AND PT AWARE.
[2019-09-22] MEDS: SODIUM FERRIC GLUCONATE 125 MG in NACL 0.9% 100 ML IV SCH ×2 (10:02→20:04)
--- NOTE | 2019-09-22 10:02 | NUR ---
ADMINISTERED FERRLECIT VIA IVPB PER MD ORDER, MED EDUCATION PROVIDED TO PT, AND PT VERBALIZED UNDERSTANDING. PT COMPLAINED HE HAS 8/10 PAIN ON HIS ABDOMINAL REGION, DESCRIBED SHARP ACHING SEVERE PAIN, MEDICATED WITH PRN PAIN MED OXYCONTIN. MED EDUCATION PROVIDED AND HE SAID OK. PT AWAKE AND RESTING ON BED AT THIS TIME. NO SIGNS OF DISTRESS NOTED. TELE MONITOR ATTACHED. SAFETY MEASURES IN PLACE.
[2019-09-22] MEDS: PANTOPRAZOLE 80 MG in NACL 0.9% 100 ML IV SCH ×2 (11:09→21:18)
--- NOTE | 2019-09-22 11:09 | NUR ---
PROTONIX SODIUM CHLORIDE COMPLETED INFUSE. STARTED A NEW BAG, MED EDUCATION PROVIDED AND PT SAID OK. PT IS RESTING ON BED. DENIED PAIN, SOB AND DIZZINESS. NO SIGNS OF DISTRESS NOTED. TELE MONITOR ATTACHED. SAFETY MEASURES IN PLACE. INSTRUCTED PT TO USE THE CALL LIGHT FOR ANY ASSISTANCE AND PT AWARE.
[2019-09-22 12:00] VITALS: BP 104/58
--- NOTE | 2019-09-22 12:35 | NUR ---
ADMINISTERED SCHEDULED MEDS PER MD ORDER, MEDS EDUCATION PROVIDED TO PT AND PT VERBALIZED UNDERSTANDING. PT IS EATING LUNCH AT THIS TIME. DENIED PAIN, SOB AND DIZZINESS. NO SIGNS OF DISTRESS NOTED. TELE MONITOR ATTACHED. SAFETY MEASURES IN PLACE.
--- NOTE | 2019-09-22 13:40 | NUR ---
DR PORTER IS TALKING TO PT AT BEDSIDE. NO SIGNS OF DISTRESS NOTED. TELE MONITOR ATTACHED. SAFETY MEASURES IN PLACE.
--- NOTE | 2019-09-22 15:29 | NUR ---
PT IS RESTING ON BED. EVEN AND UNLABORED CHEST RISES NOTED. NO SIGNS OF DISTRESS NOTE. TELE MONITOR ATTACHED. SAFETY MEASURES IN PLACE.
[2019-09-22 16:00] VITALS: BP 125/66
--- NOTE | 2019-09-22 17:18 | NUR ---
HOURLY ROUNDING, AND PT COMPLAINED OF ITCHINESS OVER HIS BODY, PROVIDED LOTION AND APPLIED ON ARMS AND UPPER TRUNK, PT SAID "I DON'T THINK IT WORKING." MEDICATED WITH PRN BENADRYL AND ADMINISTERED SCHEDULED MED, MEDS EDUCATION PROVIDED AND PT VERBALIZED UNDERSTANDING. NO SIGNS OF DISTRESS NOTED. TELE MONITOR ATTACHED. SAFETY MEASURES IN PLACE.
--- NOTE | 2019-09-22 18:11 | NUR ---
ADMINISTERED SCHEDULED MED PER MD ORDER, MED EDUCATION PROVIDED TO PT AND PT SAID OK. PT ALSO COMPLAINED 8/10 PAIN ON HIS ABDOMINAL REGION, MEDICATED WITH PRN PAIN MED OXYCONTIN, PT TOLERATED WELL. PT IS RESTING ON BED AT THIS TIME. TELE MONITOR ATTACHED. SAFETY MEASURES IN PLACE.
--- NOTE | 2019-09-22 19:14 | NUR ---
ENDORSED PT AT BEDSIDE TO FIELD REPRESENTATIVE/HEALTH EDUCATION NURSE LITO FOR CONTINUITY OF CARE. PT IS AWAKE AND RESTING ON BED. NO SIGNS OF DISTRESS NOTED. SAFETY MEASURES IN PLACE. TELE MONITOR ATTACHED. PT IS IN STABLE CONDITION. PROTONIX IS STILL INFUSING AND ABOUT 30 ML REMAIN; NOT YET HANG 1810 DOSE.
--- NOTE | 2019-09-22 19:15 | NUR ---
RECEIVED PT ON BED WATCHING TV, AAOX4, DENIES PAIN AT THIS TIME, VITAL SIGNS STABLE, TOLERATING FULL LIQUID DIET, IVF AND PROTONIX DRIP INFUSING WELL, PLAN OF CARE DISCUSSED, SAFETY MEASURES IN PLACE, CALL LIGHT WITHIN REACH.
[2019-09-22 20:00] VITALS: BP 128/64
--- NOTE | 2019-09-22 20:05 | NUR ---
DUE MEDS ADMINISTERED WITH EDUCATION PROVIDED, PT REQUESTING SNACKS, PUDDING PROVIDED, TOLERATED WELL, ALL NEEDS ATTENDED.
--- NOTE | 2019-09-22 21:20 | NUR ---
PT SEEN AMBULATING BACK TO BED FROM TOILET, STATED HAVING LOOSE STOOL DUE TO LACTULOSE, NEW BAG OF PROTONIX DRIP STARTED, TO INFUSE AT 10ML/H, MONITORED CLOSELY.
[2019-09-23] VITALS: BP 113/71
--- NOTE | 2019-09-23 | NUR ---
PT SLEEPING, EASILY AROUSABLE, VITAL SIGNS STABLE, DENIES ANY PAIN, MEDICATED EARLIER WITH OXYCONTIN, CONTINUE TO MONITOR CLOSELY.
[2019-09-23 04:00] VITALS: BP 127/76
--- NOTE | 2019-09-23 04:00 | NUR ---
PT SLEEPING, EASILY AROUSABLE, VITAL SIGNS STABLE, IVF INFUSING WELL, PT WANTS TO GET HER BENADRYL AND OXYCONTIN AT THIS SAME TIME AT 0500, WILL MEDICATE PRN, MONITORED CLOSELY.
[2019-09-23] MEDS: METOCLOPRAMIDE 10 MG/2 ML INJ VIAL IVP SCH (05:06)
[2019-09-23] MEDS: diphenhydrAMINE 50 MG CAP PO PRN (05:06)
[2019-09-23] MEDS: oxyCODONE 10 MG TABER PO PRN (05:06)
--- NOTE | 2019-09-23 05:10 | NUR ---
MEDICATED PRN WITH OXYCONTIN FOR ABDOMINAL PAIN AND BENADRYL FOR ITCHINESS, MONITORED CLOSELY.
[2019-09-23] MEDS: DEXT 5% /NACL 0.9% 1,000 ML IV SCH (05:33)
[2019-09-23] MEDS: PANTOPRAZOLE 80 MG in NACL 0.9% 100 ML IV SCH (06:44)
--- NOTE | 2019-09-23 07:25 | NUR ---
PT AWAKE, NO SIGNS OF DISTRESS, REPORT GIVEN TO DEA CAMARENA FOR CONTINUITY OF CARE.
--- NOTE | 2019-09-23 07:26 | NUR ---
RECEIVED PATIENT FROM HOUSEKEEPER CAREGIVER NURSE LITO FOR CONTINUITY OF CARE. PATIENT IS AAOX4. RESPIRATIONS EVEN AND UNLABORED, ROOM AIR. VISIBLE CHEST RISE NOTED. DENIES CHEST PAIN. ON TELE MONITORING. ABDOMEN SOFT, ROUND, NONTENDER. DENIES ABDOMINAL PAIN. DENIES NAUSEA AND VOMITING. BOWEL SOUNDS HYPOACTIVE X4 QUADS. SKIN WARM, DRY, AND INTACT. IV IN THE LEFT FOREARM GAUGE 22 RUNNING D5NS AT 100 ML/HR, PATENT AND INTACT. PATIENT IS AMBULATORY. PATIENT IS CONTINENT. BED IN LOW POSITION. CALL LIGHT IS WITHIN REACH. WILL CONTINUE TO MONITOR.
[2019-09-23 08:00] VITALS: BP 120/61
[2019-09-23 08:12] LABS: ALBUMIN 2.3 g/dL (3.4-5.0); ANION GAP 7.5 (8-16); CARBON DIOXIDE 27.3 mmol/L (21-32); CREATININE 0.9 mg/dL (0.6-1.3); POTASSIUM 3.8 mmol/L (3.5-5.1); TOTAL BILIRUBIN 1.2 mg/dL (0.0-1.0)
[2019-09-23 08:13] LABS: HEMATOCRIT 22.3 % (36-52); HEMOGLOBIN 7.2 g/dL (12.0-18.0); MEAN CORPUSCULAR HEMOGLOBIN 27 pg (27-31); MEAN CORPUSCULAR HGB CONC 32 g/dL (33-37); MEAN CORPUSCULAR VOLUME 82.7 fL (80-94); PLATELET COUNT (AUTO) 62 K/uL (140-450); RED BLOOD CELL COUNT(AUTO) 2.69 MIL/uL (4.20-6.10); RED CELL DISTRIBUTION WIDTH 21.9 % (11.6-13.7); WHITE BLOOD COUNT (AUTO) 4.1 K/uL (4.8-10.8)
[2019-09-23 08:39] LABS: BASOPHILS % (MANUAL) 0 % (0-2); EOSINOPHILS % (MANUAL) 6 % (0-4); LYMPHOCYTES % (MANUAL) 21 % (20-46); MONOCYTES % (MANUAL) 14 % (5-12)
[2019-09-23] MEDS: LACTULOSE 20 GM/30 ML UDC PO SCH (08:41)
[2019-09-23] MEDS: FOLIC ACID 1 MG TAB PO SCH (08:42)
[2019-09-23] MEDS: SODIUM FERRIC GLUCONATE 125 MG in NACL 0.9% 100 ML IV SCH (08:42)
--- NOTE | 2019-09-23 08:42 | NUR ---
GIVEN MORNING MEDICATIONS PO. HANG FERRLECIT VIA IVPB. GIVEN MEDICATION EDUCATION. WILL CONTINUE TO MONITOR
[2019-09-23] MEDS: THIAMINE IV SCH (09:00)
[2019-09-23] MEDS: chlordiazePOXIDE 25 MG CAP PO SCH ×2 (09:00→12:13)
[2019-09-23] MEDS: NACL 0.9% IV SCH (09:00)
--- NOTE | 2019-09-23 09:00 | NUR ---
GIVEN LIBRIUM AND HANG VITAMIN B1 VIA IVPB. EXPLAINED TO PATIENT MEDICATIONS AND SIDE EFFECTS. PATIENT VERBALIZED UNDERSTANDING. BED IN LOW POSITION. CALL LIGHT IS WITHIN REACH. WILL CONTINUE MONITOR
--- NOTE | 2019-09-23 10:50 | NUR ---
PATIENT DENIES N/V. DENIES ANY PAIN. BED IN LOW POSITION. CALL LIGHT IS WITHIN REACH. WILL CONTINUE TO MONITOR
--- NOTE | 2019-09-23 11:55 | NUR ---
VITAL SIGNS CHECK. PATIENT DENIES ANY PAIN. BED IN LOW POSITION. CALL LIGHT IS WITHIN REACH. WILL CONTINUE TO MONITOR
[2019-09-23 12:00] VITALS: BP 120/63
[2019-09-23] MEDS ORDERED: chlordiazePOXIDE 25 MG CAP PO PRN (12:15)
--- NOTE | 2019-09-23 12:43 | NUR ---
CALLED [facility] FOR PATIENT'S LUNCH TRAY
--- NOTE | 2019-09-23 13:46 | NUR ---
DISCHARGE PLANNING 42 y/o male pt admitted for GI hemorrhage and acute kidney failure. Pt with hx of chronic ETOH, cirrhosis, prostate CA who continues to drink. Pt drinks Vodka, last drink was two days prior to admission. Pt was started EV protonix and IV sandostatin on admission. Pt on IV reglan; BP 98/63, Hgb 4.6, 7.2 today; BUN 70; Cr 1.4. DC pending on patient's response to treatment. SW/CM will continue following up as needed. Bertha Caal, QUYEN/CM
--- NOTE | 2019-09-23 14:45 | NUR ---
PATIENT IS SLEEPING AT THIS TIME. NO SIGNS OF DISTRESS NOTED. BED IN LOW POSITION. CALL LIGHT IS WITHIN REACH. WILL CONTINUE TO MONITOR
[2019-09-23 16:00] VITALS: BP 121/69
--- NOTE | 2019-09-23 16:44 | NUR ---
VITAL SIGNS CHECK. DENIES PAIN. RESPIRATIONS EVEN AND UNLABORED, ROOM AIR. VISIBLE CHEST RISE. BED IN LOW POSITION. CALL LIGHT IS WITHIN REACH. WILL CONTINUE TO MONITOR
[2019-09-23] MEDS: FERROUS GLUCONATE 324 MG TAB PO SCH (17:12)
--- NOTE | 2019-09-23 17:12 | NUR ---
GIVEN FERROUS SULFATE PO. EXPLAINED MEDICATION. BED IN LOW POSITION. CALL LIGHT IS WITHIN REACH. WILL CONTINUE TO MONITOR
--- NOTE | 2019-09-23 17:48 | NUR ---
REQUESTED TWO JULIO C CRACKERS. PATIENT DENIES PAIN. WILL CONTINUE TO MONITOR
--- NOTE | 2019-09-23 18:12 | NUR ---
PATIENT IS EATING DINNER AT THIS TIME. NO SIGNS OF DISTRESS NOTED. BED IN LOW POSITION. CALL LIGHT IS WITHIN REACH. WILL CONTINUE TO MONITOR
--- NOTE | 2019-09-23 19:38 | NUR ---
RECEIVED PATIENT FROM DAY SHIFT NURSE FOR CONTINUITY OF CARE. PATIENT IS AAOX4. RESPIRATIONS EVEN AND UNLABORED WITH ROOM AIR. VISIBLE CHEST RISE NOTED. ON TELE MONITORING. ABDOMEN SOFT, ROUND, NONTENDER. DENIES ABDOMINAL PAIN. BOWEL SOUNDS HYPOACTIVE X4 QUADS. SKIN WARM, DRY, AND INTACT. IV IN THE LEFT FOREARM GAUGE 22 RUNNING D5NS AT 100 ML/HR, PATENT, INTACT AND ASYMPTOMATIC. PATIENT IS AMBULATORY. PATIENT IS CONTINENT. BED IN LOW POSITION. CALL LIGHT IS WITHIN REACH. WILL CONTINUE TO MONITOR.
--- NOTE | 2019-09-23 19:38 | NUR ---
ENDORSED PATIENT TO THE NURSING SERVICE DIRECTOR NURSE FOR CONTINUITY OF CARE. PATIENT IS IN STABLE CONDITION.
[2019-09-23 20:00] VITALS: BP 133/49
--- NOTE | 2019-09-23 20:20 | NUR ---
GIVEN ELAVIL MD ORDERED. PT TOLERATED WELL.
[2019-09-23] MEDS ORDERED: AMITRIPTYLINE 10 MG TAB PO SCH (21:00)
--- NOTE | 2019-09-23 22:01 | NUR ---
PT SLEEPING IN BED COMFORTABLY. NO ACUTE DISTRESS NOTED.
[2019-09-24] VITALS: BP 106/62
--- NOTE | 2019-09-24 | NUR ---
PT SLEEPING IN BED COMFORTABLY. NO ACUTE DISTRESS NOTED.
--- NOTE | 2019-09-24 02:30 | NUR ---
PT SLEEPING IN BED. NO ACUTE DISTRESS NOTED. WILL CONTINUE TO MONITOR.
[2019-09-24 04:00] VITALS: BP 117/67
[2019-09-24] MEDS ORDERED: oxyCODONE 10 MG TABER PO PRN ×2 (04:15→04:35)
--- NOTE | 2019-09-24 04:46 | NUR ---
PT C/O 10/ R ARM PAIN, GIVEN OXYCONTIN MD ORDERED. PT TOLERATED WELL.
--- NOTE | 2019-09-24 07:15 | NUR ---
ENDORSED PT TO DAY SHIFT NURSE FOR CONTINUOUS CARE.
--- NOTE | 2019-09-24 07:16 | NUR ---
RECEIVED PATIENT FROM CHIEF MEDICAL DIRECTOR NURSE TIKA FOR CONTINUITY OF CARE. PATIENT IS AAOX4. RESPIRATIONS EVEN AND UNLABORED, ROOM AIR. VISIBLE CHEST RISE NOTED. DENIES CHEST PAIN. ON TELE MONITORING. ABDOMEN SOFT, ROUND, NONTENDER. DENIES ABDOMINAL PAIN. DENIES NAUSEA AND VOMITING. BOWEL SOUNDS ACTIVE X4 QUADS. REGULAR DIET. SKIN WARM, DRY, AND INTACT. IV IN THE LEFT FOREARM GAUGE 22 SALINE LOCK, PATENT AND INTACT. PATIENT IS AMBULATORY. PATIENT IS CONTINENT. BED IN LOW POSITION. CALL LIGHT IS WITHIN REACH. WILL CONTINUE TO MONITOR.
[2019-09-24 07:23] LABS: BASOPHILS # (AUTO) 0.1 K/uL (0.00-0.22); BASOPHILS % (AUTO) 2.2 % (0.0-2.0); EOSINOPHILS # (AUTO) 0.1 K/uL (0-0.4); EOSINOPHILS % (AUTO) 1.6 % (0.0-4.0); HEMATOCRIT 22.8 % (36-52); HEMOGLOBIN 7.4 g/dL (12.0-18.0); LYMPHOCYTES # (AUTO) 0.6 K/uL (2.0-11.5); LYMPHOCYTES % (AUTO) 13.4 % (20.5-51.1); MEAN CORPUSCULAR HEMOGLOBIN 27 pg (27-31); MEAN CORPUSCULAR HGB CONC 33 g/dL (33-37); MEAN CORPUSCULAR VOLUME 82.6 fL (80-94); MONOCYTES # (AUTO) 0.8 K/uL (0.8-1.0); MONOCYTES % (AUTO) 17.6 % (1.7-9.3); NEUTROPHILS # (AUTO) 2.9 K/uL (1.8-7.7); NEUTROPHILS % (AUTO) 65.2 % (42.2-75.2); PLATELET COUNT (AUTO) 69 K/uL (140-450); RED BLOOD CELL COUNT(AUTO) 2.76 MIL/uL (4.20-6.10); WHITE BLOOD COUNT (AUTO) 4.4 K/uL (4.8-10.8)
[2019-09-24 07:37] LABS: ALBUMIN 2.2 g/dL (3.4-5.0); ANION GAP 9.5 (8-16); CARBON DIOXIDE 25.5 mmol/L (21-32); CREATININE 0.9 mg/dL (0.6-1.3); TOTAL BILIRUBIN 1.1 mg/dL (0.0-1.0)
[2019-09-24 08:00] VITALS: BP 121/66
--- NOTE | 2019-09-24 08:45 | NUR ---
GIVEN MORNING MEDICATIONS PO. HANG VITAMIN B1 IVPB. GIVEN MEDICATION EDUCATION. PATIENT VERBALIZED UNDERSTANDING. BED IN LOW POSITION. CALL LIGHT IS WITHIN REACH. WILL CONTINUE TO MONITOR
[2019-09-24] MEDS: FERROUS GLUCONATE 324 MG TAB PO SCH (08:46)
[2019-09-24] MEDS: FOLIC ACID 1 MG TAB PO SCH (08:46)
[2019-09-24] MEDS: NACL 0.9% IV SCH (08:46)
[2019-09-24] MEDS: THIAMINE IV SCH (08:46)
[2019-09-24] MEDS ORDERED: SPIRONOLACTONE 25 MG TAB PO SCH (09:00)
--- NOTE | 2019-09-24 10:14 | NUR ---
PATIENT IS SLEEPING COMFORTABLY AT THIS TIME. NO SIGNS OF DISTRESS NOTED. BED IN LOW POSITION. CALL LIGHT IS WITHIN REACH. WILL CONTINUE TO MONITOR.
[2019-09-24 12:00] VITALS: BP 118/63
--- NOTE | 2019-09-24 12:13 | NUR ---
VITAL SIGNS CHECK. BP IS 118/63. HR 87, TEMP 98.97, O2SAT 95% ROOM AIR, RESP 18. DENIES PAIN. WILL CONTINUE TO MONITOR.
--- NOTE | 2019-09-24 13:21 | NUR ---
PATIENT IS RESTING AT THIS TIME. DENIES PAIN. BED IN LOW POSITION. CALL LIGHT IS WITHIN REACH. WILL CONTINUE TO MONITOR.
--- NOTE | 2019-09-24 14:28 | NUR ---
09/24/19 RD INITIAL ASSESSMENT COMPLETED PLEASE REFER TO NUTRITION ASSESSMENT UNDER CARE ACTIVITY FOR ESTIMATED NUTRITIONAL NEEDS. 1. CONTINUE REGULAR DIET TOLERATED 2. RD PROVIDED NUTRITION EDUCATION ON CIRRHOSIS AND RECOMMENDS A DIET LOW IN FATS AND SUGAR. 3. RD TO FOLLOW-UP 3-5 DAYS, MODERATE RISK ROSY MONTEJO, RD
[2019-09-24 15:20] VITALS: BP 118/86
--- NOTE | 2019-09-24 15:55 | NUR ---
GIVEN DISCHARGED INSTRUCTIONS. EXPLAINED THAT PATIENT HAS TO MAKE APPT WITH PCP WITHIN 1-2 WEEKS. IF SYMPTOMS GET WORSE, CALL 911 OR GO TO ED. EXPLAINED THAT PRESCRIBED LIBRIUM AND TO BRING THE PRESCRIPTIONS TO THE PREFERRED PHARMACY. NO FURTHER QUESTIONS. PATIENT SIGNED DISCHARGE PAPERWORK
--- NOTE | 2019-09-24 15:58 | NUR ---
DISCONTINUED IV AND REMOVED ID BAND. PATIENT IS UP TO DATE FOR PNA AND FLU VACCINES
--- NOTE | 2019-09-24 16:00 | NUR ---
DISCHARGED PATIENT ON FOOT. PATIENT DENIES N/V. DENIES PAIN. PATIENT IS IN STABLE CONDITION
--- NOTE | 2019-09-24 16:01 | NUR ---
ALL NEEDS MET
--- NOTE | 2019-09-26 15:15 | NUR ---
PCP Appointment: CONOR contacted Dr. Gareth Paniagua's office and spoke to Grecia [phone]. CONOR arranged for hospital follow up to be on 09/30/2019 at 8251 @ [address] [place] [address]. Patient was notified.
== END 2019-09-24 16:00 | disposition home or self-care (01) | DRG 242 ==
LOC: MED 00:34 → MIC 04:36 → MTU 08:05
PROVIDERS: ADMIT Internal Medicine; ATTEND Internal Medicine
PROC: 30233N1 Transfusion of Nonautologous Red Blood Cells into Peripheral Vein, Percutaneous Approach (ICD-10-PCS; principal; 2019-09-20)
DX: K22.11 Ulcer of esophagus with bleeding (principal); N17.0 Acute kidney failure with tubular necrosis; E44.0 Moderate protein-calorie malnutrition; D68.9 Coagulation defect, unspecified; D62 Acute posthemorrhagic anemia; D69.6 Thrombocytopenia, unspecified; K70.30 Alcoholic cirrhosis of liver without ascites; K21.0 Gastro-esophageal reflux disease with esophagitis; F10.10 Alcohol abuse, uncomplicated; Y90.9 Presence of alcohol in blood, level not specified; K44.9 Diaphragmatic hernia without obstruction or gangrene; Z85.46 Personal history of malignant neoplasm of prostate; Z91.19 Patient's noncompliance with other medical treatment and regimen; Z92.3 Personal history of irradiation; Z79.899 Other long term (current) drug therapy; Z90.49 Acquired absence of other specified parts of digestive tract; Z68.23 Body mass index [BMI] 23.0-23.9, adult
CPT/HCPCS: 36415; 71045; 80053; 81003; 82150; 83690; 85018; 85025; 85610; 86870; 86886; 86900; 86901; 86920; 87081; 96374; 96375; 99285; C9113; J2270; J2354; J2405; J2765; J2916; J3411; J3430; J7030; J7042; P9016; Q0092; Q0163

== ENCOUNTER 2019-11-17 23:59 | Emergency (ER) | payer OTHER ==
[~2019-11-17] VITALS: Ht 190.5 cm; Wt 87.1 kg
[2019-11-18 00:08] VITALS: BP 121/73
[2019-11-18] MEDS ORDERED: MORPHINE SULFATE 4 MG/ML SYR IM ONE (01:10)
[2019-11-18] MEDS ORDERED: TRANEXAMIC ACID 1,000 MG/10 ML VIAL MC ONE (01:10)
[2019-11-18 02:26] VITALS: BP 119/70
== END 2019-11-18 02:26 | disposition home or self-care (01) ==
LOC: MED 23:59
DX: R04.0 Epistaxis (principal); E11.9 Type 2 diabetes mellitus without complications; K21.9 Gastro-esophageal reflux disease without esophagitis; Z85.9 Personal history of malignant neoplasm, unspecified; Z79.899 Other long term (current) drug therapy
CPT/HCPCS: 82948; 96372; 99283; J2270; J3490

== ENCOUNTER 2020-01-06 21:09 | Emergency (ER) | payer OTHER ==
[~2020-01-06] VITALS: Ht 190.5 cm; Wt 83.9 kg
[2020-01-06 21:12] VITALS: BP 162/77
--- NOTE | 2020-01-06 21:17 | NUR ---
PT AMBULATED TO BED 7 WITH STEADY GAIT
--- NOTE | 2020-01-06 21:18 | NUR ---
PT MOVED TO BED 02 WITH STEADY GAIT.
--- NOTE | 2020-01-06 21:21 | NUR ---
Dr. Lee examining patient.
[2020-01-06] MEDS ORDERED: TRANEXAMIC ACID 1,000 MG/10 ML VIAL MC ONE (21:30)
--- NOTE | 2020-01-06 21:30 | NUR ---
54 Y/O MALE PRESENTS TO ER WITH C/O EPISTAXIS X 2HRS. 0/10 PAIN. PT STATES BLOOD CLOT CAME FROM LEFT NOSTRIL X 1HR AGO. DENIES FALL, OR INJURY TO FACE OR HEAD. DENIES VISION CHANGES, HEADACHE, NAUSEA, VOMITING, DIARRHEA. R/R EQUAL AND UNLABORED, VSS, SIDE RAIL X1, BED IN LOW POSITION, WILL CONTINUE TO MONITOR NKDA PMH: PROSTATE CANCER, ESOPHAGEAL VARICES, CHRONIC PANCREATITIS
[2020-01-06 22:15] LABS: PROTHROMBIN TIME 14.3 secs (10.8-13.4)
[2020-01-06 22:17] LABS: ANION GAP 15.3 (8-16); CARBON DIOXIDE 21.8 mmol/L (21-32); CREATININE 1.1 mg/dL (0.6-1.3); POTASSIUM 4.1 mmol/L (3.5-5.1)
[2020-01-06 22:21] LABS: BASOPHILS # (AUTO) 0.1 K/uL (0.00-0.22); BASOPHILS % (AUTO) 3.4 % (0.0-2.0); EOSINOPHILS # (AUTO) 0.1 K/uL (0-0.4); EOSINOPHILS % (AUTO) 3.6 % (0.0-4.0); HEMATOCRIT 25.7 % (36-52); LYMPHOCYTES # (AUTO) 0.5 K/uL (2.0-11.5); LYMPHOCYTES % (AUTO) 27.7 % (20.5-51.1); MEAN CORPUSCULAR HEMOGLOBIN 23 pg (27-31); MEAN CORPUSCULAR HGB CONC 31 g/dL (33-37); MEAN CORPUSCULAR VOLUME 73.1 fL (80-94); MONOCYTES # (AUTO) 0.3 K/uL (0.8-1.0); MONOCYTES % (AUTO) 13.7 % (1.7-9.3); NEUTROPHILS % (AUTO) 51.6 % (42.2-75.2); PLATELET COUNT (AUTO) 43 K/uL (140-450); RED BLOOD CELL COUNT(AUTO) 3.51 MIL/uL (4.20-6.10); RED CELL DISTRIBUTION WIDTH 20.7 % (11.6-13.7)
[2020-01-06 22:24] LABS: WHITE BLOOD COUNT (AUTO) 1.9 K/uL (4.8-10.8)
[2020-01-06] MEDS ORDERED: INSULIN REGULAR, HUMAN 100 UNIT/ML VIAL IVP ONE ×2 (22:25→23:45)
[2020-01-06] MEDS ORDERED: LORazepam 2 MG/ML VIAL IVP ONE (22:25)
[2020-01-06] MEDS ORDERED: NACL 0.9% 1,000 ML IV ONE (22:25)
--- NOTE | 2020-01-06 22:27 | NUR ---
ACCUCHECK 501, ERMD NOTIFIED
[2020-01-06] MEDS ORDERED: CLINDAMYCIN 600 MG/4 ML VIAL IM ONE (22:30)
--- NOTE | 2020-01-07 00:15 | NUR ---
new poc glucose -- 359. okay to d/c per dr kelsey. IV removed, catheter intact. bleeding controlled with gauze to the site.
--- NOTE | 2020-01-07 00:20 | NUR ---
Patient discharged with v/s stable. Written and verbal after care instructions given and explained. Patient alert, oriented and verbalized understanding of instructions. Ambulatory with steady gait. All questions addressed prior to discharge. ID band removed. Patient advised to follow up with PMD. Rx of clindamycin, nasal saline spray given. Patient educated on indication of medication including possible reaction and side effects. Opportunity to ask questions provided and answered.
[2020-01-07 00:22] VITALS: BP 157/81
== END 2020-01-07 00:20 | disposition home or self-care (01) ==
LOC: MED 21:09
DX: R04.0 Epistaxis (principal); E11.65 Type 2 diabetes mellitus with hyperglycemia; D68.9 Coagulation defect, unspecified; D72.819 Decreased white blood cell count, unspecified; K21.9 Gastro-esophageal reflux disease without esophagitis; Z85.46 Personal history of malignant neoplasm of prostate; Z79.899 Other long term (current) drug therapy
CPT/HCPCS: 36415; 80053; 82948; 85025; 85610; 85730; 96361; 96372; 96374; 96375; 99284; J1815; J2060; J3490; J7030

== ENCOUNTER 2020-01-07 11:47 | Emergency (ER) | payer OTHER ==
[~2020-01-07] VITALS: Ht 190.5 cm; Wt 84.5 kg
[2020-01-07 11:58] VITALS: BP 138/76
--- NOTE | 2020-01-07 12:05 | NUR ---
Patient ambulated to bed [facility]. RN evaluating patient at bedside.
--- NOTE | 2020-01-07 12:20 | NUR ---
54 Y/O PRESENTS TO ER TO HAVE LEFT NARE RHINO ROCKET REMOVED S/P PLACEMENT YESTERDAY EVENING IN [place]. PT DENIES NOTICING ANY BLEEDING, ANY ONSET OF PAIN, OR TROUBLE BREATHING. RESP EVEN AND UNLABORED. CRUSTED BLOOD NOTED IN LEFT NARE. SKIN INTACT
--- NOTE | 2020-01-07 12:31 | NUR ---
Dr. Man is evaluating the patient at bedside.
[2020-01-07 12:52] VITALS: BP 138/76
== END 2020-01-07 12:53 | disposition home or self-care (01) ==
LOC: MED 11:47
DX: R04.0 Epistaxis (principal); M54.6 Pain in thoracic spine; E11.9 Type 2 diabetes mellitus without complications; K21.9 Gastro-esophageal reflux disease without esophagitis; Z98.890 Other specified postprocedural states; Z85.46 Personal history of malignant neoplasm of prostate; Z88.8 Allergy status to other drugs, medicaments and biological substances; Z79.899 Other long term (current) drug therapy
CPT/HCPCS: 99282

== ENCOUNTER 2020-07-09 04:31 | Inpatient (IN) | payer OTHER, SELFPAY ==
[~2020-07-09] VITALS: Ht 190.5 cm; Wt 83.9 kg
[2020-07-09 04:42] VITALS: BP 149/101
--- NOTE | 2020-07-09 04:46 | NUR ---
triaged and ambulated to bed 09
--- NOTE | 2020-07-09 04:55 | NUR ---
ERMD AT BEDSIDE.
[2020-07-09] MEDS ORDERED: PANTOPRAZOLE 40 MG INJ VIAL IVP ONE ×2 (05:00→05:30)
[2020-07-09] MEDS ORDERED: OCTREOTIDE ACETATE 1.25 MG in NACL 0.9% 250 ML IV ONE ×2 (05:00→06:30)
[2020-07-09] MEDS ORDERED: PANTOPRAZOLE 80 MG in NACL 0.9% 100 ML IVP SCH (05:00)
[2020-07-09] MEDS ORDERED: OCTREOTIDE ACETATE 100 MCG/ML VIAL IV ONE (05:00)
[2020-07-09] MEDS ORDERED: MORPHINE SULFATE 4 MG/ML SYR IVP ONE (05:00)
[2020-07-09] MEDS ORDERED: ONDANSETRON 4 MG/2 ML VIAL IVP ONE ×2 (05:00→05:45)
--- NOTE | 2020-07-09 05:00 | NUR ---
PATIENT 55 Y/O MALE BIB SELF FOR C/O VOMITING BLOOD X 1 DAY AND RUQ ANDLUQ STOMACH PAIN. PER PATIENT HAS HAD HX OF VOMITING BLOOD X 1 YEAR AGO. PAIN 10/10 PROVKED WHEN VOMITING. 100CC OF VOMIT NOTED IN VOMIT BAG AND DARK RED IN COLOR. PATIENT STATES N/V BEGAN X 1 DAY AGO AND HAS NOT IMPORVED. PAT ABD IS SOFT, FLAT, AND NONTENDER TO TOUCH. PATIENT BS PRESENT X 4 QUADRANTS. PATIENT REMAINS ON CARDIAC MONTIOR. PT BED IS LOCKED AND IN LOWEST POSITION. MEDHX: ESOPHEGEAL VERACIES, PROSTATE CA, DM TYPE II ALLERGIES: NKDA
[2020-07-09] MEDS ORDERED: cefTRIAXone 500 MG VIAL ONE (05:17)
[2020-07-09] MEDS ORDERED: MORPHINE SULFATE 4 MG/ML SYR IM ONE (05:30)
--- NOTE | 2020-07-09 05:35 | NUR ---
XRAY AT BEDSIDE.
[2020-07-09] MEDS ORDERED: OCTREOTIDE ACETATE 100 MCG/ML VIAL IV SCH (05:50)
[2020-07-09 06:20] LABS: MONOCYTES # (AUTO) 0.3 K/uL (0.8-1.0); WHITE BLOOD COUNT (AUTO) 3.1 K/uL (4.8-10.8)
[2020-07-09 06:24] LABS: BASOPHILS # (AUTO) 0.2 K/uL (0.00-0.22); EOSINOPHILS % (AUTO) 0.3 % (0.0-4.0); HEMATOCRIT 37.8 % (36-52); HEMOGLOBIN 12.3 g/dL (12.0-18.0); LYMPHOCYTES # (AUTO) 0.8 K/uL (2.0-11.5); LYMPHOCYTES % (AUTO) 26.2 % (20.5-51.1); MEAN CORPUSCULAR HEMOGLOBIN 24 pg (27-31); MEAN CORPUSCULAR HGB CONC 33 g/dL (33-37); MEAN CORPUSCULAR VOLUME 74.3 fL (80-94); MONOCYTES % (AUTO) 9.2 % (1.7-9.3); NEUTROPHILS # (AUTO) 1.8 K/uL (1.8-7.7); NEUTROPHILS % (AUTO) 58.4 % (42.2-75.2); PLATELET COUNT (AUTO) 72 K/uL (140-450); RED BLOOD CELL COUNT(AUTO) 5.08 MIL/uL (4.20-6.10); RED CELL DISTRIBUTION WIDTH 17.5 % (11.6-13.7)
[2020-07-09 06:26] LABS: BASOPHILS % (AUTO) 5.9 % (0.0-2.0)
[2020-07-09 06:35] LABS: ALBUMIN 4.6 g/dL (3.4-5.0); ANION GAP 23.1 (8-16); CARBON DIOXIDE 24.4 mmol/L (21-32); CREATININE 0.9 mg/dL (0.6-1.3); POTASSIUM 3.5 mmol/L (3.5-5.1); PROTHROMBIN TIME 14.2 secs (10.8-13.4); TOTAL BILIRUBIN 1.2 mg/dL (0.0-1.0)
[2020-07-09] MEDS ORDERED: PANTOPRAZOLE 40 MG INJ VIAL ONE ×2 (06:38→17:28)
[2020-07-09] MEDS ORDERED: OCTREOTIDE ACETATE 1000 MCG/5 ML VIAL ONE (06:43)
[2020-07-09] MEDS ORDERED: HYDROcodone/APAP 5/325 MG 1 TAB TAB PO PRN (07:05)
[2020-07-09] MEDS ORDERED: ACETAMINOPHEN 325 MG TAB PO PRN (07:05)
[2020-07-09] MEDS: NACL 0.9% 1,000 ML IV SCH ×2 (07:05→19:35)
--- NOTE | 2020-07-09 07:06 | NUR ---
RECIVED CALL FROM LAB THAT PATIENT HAD POSITIVE ANTIBODIES IN BLOOD AND WOULD NEED 3 FULL VIALS OF PINK TOPS TUBES TO SEND OUT TO CITIZEN OF [place].
[2020-07-09] MEDS: PANTOPRAZOLE 80 MG in NACL 0.9% 100 ML IVP SCH ×2 (07:10→17:32)
[2020-07-09] MEDS ORDERED: METOCLOPRAMIDE 10 MG/2 ML INJ VIAL IVP ONE (07:10)
[2020-07-09] MEDS ORDERED: ONDANSETRON 4 MG/2 ML VIAL IVP SCH (07:10)
--- NOTE | 2020-07-09 07:22 | NUR ---
REPORT RECEIVED FROM DEA ATWOOD. TX OF CARE AT THIS TIME.
[2020-07-09] MEDS ORDERED: ONDANSETRON 4 MG/2 ML VIAL IVP PRN (07:25)
--- NOTE | 2020-07-09 07:30 | NUR ---
GAVE REPORT TO JOSH MALIN. TRANSFER OF CARE.
[2020-07-09] MEDS ORDERED: KCL 20 MEQ/WATER INJ PREMIX 200 ML IV PRN (07:40)
[2020-07-09] MEDS ORDERED: POTASSIUM CHLORIDE 10 MEQ TABER PO PRN (07:40)
[2020-07-09] MEDS ORDERED: MAG SULF 2000 MG/WATER PREMIX 50 ML IV PRN (07:40)
[2020-07-09] MEDS ORDERED: PANT40EC PO (07:42)
[2020-07-09] MEDS ORDERED: CHOL500022 PO (07:42)
[2020-07-09] MEDS ORDERED: INSU100I7 SQ (07:42)
[2020-07-09] MEDS ORDERED: METF-1022 PO (07:42)
[2020-07-09] MEDS ORDERED: VITA1TAB44 PO (07:42)
[2020-07-09] MEDS ORDERED: GLYB5TAB14 PO (07:42)
[2020-07-09] MEDS ORDERED: SUCR1TAB7 PO (07:42)
[2020-07-09] MEDS ORDERED: THIA-10 PO (07:42)
[2020-07-09] MEDS ORDERED: PROP20TA29 PO (07:42)
[2020-07-09] MEDS ORDERED: FERR325E14 PO (07:42)
[2020-07-09] MEDS ORDERED: OXYB10TA2 PO (07:42)
[2020-07-09] MEDS ORDERED: SEMA0.25 SQ (07:42)
[2020-07-09] MEDS ORDERED: MIRA25TE PO (07:42)
--- NOTE | 2020-07-09 08:46 | NUR ---
PATIENT HAS BEEN SCREENED AND CATEGORIZED MODERATE NUTRITION RISK. PATIENT WILL BE SEEN WITHIN 3-5 DAYS OF ADMISSION. 07/11/20 07/13/[address]
--- NOTE | 2020-07-09 10:25 | NUR ---
URINAL PROVIDED TO PT TO BEDSIDE. PT STATES HE IS NOT ABLE TO URINATE AT THIS TIME.
--- NOTE | 2020-07-09 14:46 | NUR ---
Messi thompson in [facility] - 07/09/20 [address] HUMPHREY IS TALKING WITH PT.
--- NOTE | 2020-07-09 14:50 | NUR ---
DR. HUMPHREY IS EVALUATING PT AT BEDSIDE. VERBAL ORDER RECEIVED FROM DR. HUMPHREY REGLAN 10MG Q4H, MORPHINE 4MG Q4H FOR SEVERE PAIN.
[2020-07-09] MEDS ORDERED: METOCLOPRAMIDE 10 MG/2 ML INJ VIAL IVP PRN (14:55)
[2020-07-09] MEDS ORDERED: MORPHINE SULFATE 4 MG/ML SYR IVP PRN (14:55)
[2020-07-09 15:32] LABS: BARBITURATE, URINE NEGATIVE ng/ml (NEG <=200); BENZODIAZEPINE, URINE NEGATIVE ng/mL (NEG <=200); CANNABINOID, URINE NEGATIVE ng/mL (NEG <=50); COCAINE, URINE NEGATIVE ng/mL (NEG <=300); OPIATE, URINE POSITIVE ng/mL (NEG <=2000); PHENCYCLIDINE SCREEN,URINE NEGATIVE ng/mL (NEG <=25)
[2020-07-09] MEDS ORDERED: METOCLOPRAMIDE 10 MG/2 ML INJ VIAL ONE (16:07)
[2020-07-09] MEDS ORDERED: MORPHINE SULFATE 4 MG/ML SYR ONE (16:07)
[2020-07-09] MEDS: SODIUM FERRIC GLUCONATE 125 MG in NACL 0.9% 100 ML IV SCH (16:22)
[2020-07-09] MEDS: chlordiazePOXIDE 25 MG CAP PO SCH (17:32)
--- NOTE | 2020-07-09 18:30 | NUR ---
FULL LIQUID DIET DINNER PROVIDED TO PT TO BEDSIDE.
--- NOTE | 2020-07-09 19:01 | NUR ---
Messi thompson in ED - 07/09/20 at 1902 by MED EVELINA HEADLEY REGARDING PT'S MED REC.
--- NOTE | 2020-07-09 19:02 | NUR ---
DR. HEADLEY CALLED BACK REGARDING PT'S MED REC.
[2020-07-09] MEDS ORDERED: chlordiazePOXIDE 25 MG CAP PO PRN (19:10)
[2020-07-09] MEDS ORDERED: DEXTROSE 50% 50 ML SYR IVP PRN (19:15)
--- NOTE | 2020-07-09 19:30 | NUR ---
RECEIVED REPORT FROM JOSH MALIN FOR CONTINUITY OF CARE.
--- NOTE | 2020-07-09 20:00 | NUR ---
EMPTIED PT'S URINAL WITH 600 ML OF DARK YELLOW URINE. PT WAS REPOSITION AND ADJUSTED HOB TO COMFORTABLE POSITION. PT ATE 100% OF DINNER WITH NO DIFFICULTY. ON CARDIAC MONITORING, BP MONITORING AND PULSE OXIMETRY. BED LOCKED AND IN LOWEST POSITION. CALL LIGHT WITHIN REACH AND ALL NEEDS PRIOR TO EXIT. WILL CONTINUE TO MONITOR.
[2020-07-09] MEDS: LACTULOSE 20 GM/30 ML UDC PO SCH (21:00)
[2020-07-09] MEDS: BLOOD GLUCOSE MONITORING 1 DEV DEV FS SCH (21:00)
[2020-07-09] MEDS: INSULIN LISPRO SLIDING SCALE 100 UNITS/ML VIAL SUBQ PRN (21:10)
--- NOTE | 2020-07-09 22:31 | NUR ---
PT LAYING IN BED IN COMFORTABLE POSITION IN NO ACUTE DISTRESS NOTED, BREATHING EVEN AND UNLABORED EVIDENCE BY RISE AND FALL OF CHEST WALL. IVF OF 0.9% NS RUNNING, PROTONIX IN 100 ML @ 10ML/HR & SANDOstatin ON 250 ML. WAS REPOSITION AND ADJUSTED HOB TO COMFORTABLE POSITION. ON CARDIAC MONITORING, BP MONITORING AND PULSE OXIMETRY. BED LOCKED AND IN LOWEST POSITION. CALL LIGHT WITHIN REACH AND ALL NEEDS PRIOR TO EXIT. WILL CONTINUE TO MONITOR.
--- NOTE | 2020-07-09 23:51 | NUR ---
PT AMBULATED TO THE BATHROOM AT THIS TIME WITH STEADY GAIT.
--- NOTE | 2020-07-10 | NUR ---
PT RETURNED FROM THE BATHROOM, TOLERATED WELL. NO C/O PAIN OR DISCOMFORT. PT RE-PLACED ON HOISTING ENGINE OPERATOR, BP MONITORING AND PULSE OXIMETRY.
[2020-07-10] MEDS: PANTOPRAZOLE 80 MG in NACL 0.9% 100 ML IVP SCH ×3 (02:30→22:52)
--- NOTE | 2020-07-10 02:30 | NUR ---
NEW PROTONIX BAG HUNGED AT THIS TIME.
[2020-07-10] MEDS ORDERED: PANTOPRAZOLE 40 MG INJ VIAL ONE (02:34)
--- NOTE | 2020-07-10 02:50 | NUR ---
PT LAYING IN BED IN COMFORTABLE POSITION IN NO ACUTE DISTRESS NOTED, BREATHING EVEN AND UNLABORED EVIDENCE BY RISE AND FALL OF CHEST WALL. IVF OF 0.9% NS RUNNING, PROTONIX IN 100 ML @ 10ML/HR & SANDOstatin ON 250 ML. ON CARDIAC MONITORING, BP MONITORING AND PULSE OXIMETRY. BED LOCKED AND IN LOWEST POSITION. CALL LIGHT WITHIN REACH AND ALL NEEDS PRIOR TO EXIT. WILL CONTINUE TO MONITOR.
--- NOTE | 2020-07-10 06:56 | NUR ---
PT REPORTS PULLING OFF HIS IV ON THE R UPPER ARM. PT ARM WAS CLEANED AND PRESSURE WAS APPLIED.
--- NOTE | 2020-07-10 06:58 | NUR ---
PT AMBULATED TO THE BATHROOM WITH STEADY GAIT.
--- NOTE | 2020-07-10 07:25 | NUR ---
Received report from Paulina Suero, transfer of care at this time.
--- NOTE | 2020-07-10 07:30 | NUR ---
GAVE REPORT TO JENSEN MALIN FOR CONTINUITY OF CARE.
[2020-07-10] MEDS: BLOOD GLUCOSE MONITORING 1 DEV DEV FS SCH ×4 (07:55→21:05)
--- NOTE | 2020-07-10 07:58 | NUR ---
Spoke with pharmacy for sucralfate missing in pixis, also to notify MD to change vitamin order to multivitamin since pt is already receiving zinc.
[2020-07-10] MEDS: NACL 0.9% 1,000 ML IV SCH ×2 (08:05→19:51)
[2020-07-10 08:21] LABS: BASOPHILS # (AUTO) 0.1 K/uL (0.00-0.22); BASOPHILS % (AUTO) 3.1 % (0.0-2.0); EOSINOPHILS % (AUTO) 1.6 % (0.0-4.0); HEMATOCRIT 35.7 % (36-52); HEMOGLOBIN 11.3 g/dL (12.0-18.0); LYMPHOCYTES # (AUTO) 0.8 K/uL (2.0-11.5); LYMPHOCYTES % (AUTO) 31.4 % (20.5-51.1); MEAN CORPUSCULAR HEMOGLOBIN 24 pg (27-31); MEAN CORPUSCULAR HGB CONC 32 g/dL (33-37); MEAN CORPUSCULAR VOLUME 75.7 fL (80-94); MONOCYTES # (AUTO) 0.3 K/uL (0.8-1.0); NEUTROPHILS # (AUTO) 1.4 K/uL (1.8-7.7); NEUTROPHILS % (AUTO) 52.9 % (42.2-75.2); RED BLOOD CELL COUNT(AUTO) 4.72 MIL/uL (4.20-6.10); RED CELL DISTRIBUTION WIDTH 17.5 % (11.6-13.7); WHITE BLOOD COUNT (AUTO) 2.6 K/uL (4.8-10.8)
[2020-07-10] MEDS: SUCRALFATE 1 GM TAB PO SCH ×3 (08:45→16:30)
[2020-07-10] MEDS: FOLIC ACID 1 MG TAB PO SCH (09:00)
[2020-07-10] MEDS ORDERED: NON-FORMULARY ITEM (Insulin Glargine,Hum.rec.anlog (Basaglar Kwikpen U-100) 30 UNIT) SUBQ SCH (09:00)
[2020-07-10] MEDS ORDERED: VIT-B COMP/VIT-C/FOLIC ACID 1 TAB PO SCH (09:00)
[2020-07-10] MEDS: LACTULOSE 20 GM/30 ML UDC PO SCH ×2 (09:08→22:55)
[2020-07-10] MEDS: THIAMINE 100 MG TAB PO SCH (09:10)
[2020-07-10] MEDS: chlordiazePOXIDE 25 MG CAP PO SCH ×3 (09:10→17:00)
[2020-07-10] MEDS: INSULIN LANTUS 100 UNITS/ML 10 ML VIAL SUBQ SCH (09:12)
[2020-07-10 09:13] LABS: PLATELET COUNT (AUTO) 50 K/uL (140-450)
[2020-07-10] MEDS: PROPRANOLOL 20 MG TAB PO SCH (09:23)
[2020-07-10] MEDS: OXYBUTYNIN 5 MG TAB PO SCH (09:23)
[2020-07-10 09:39] LABS: ALBUMIN 4.2 g/dL (3.4-5.0); ANION GAP 17.8 (8-16); CARBON DIOXIDE 26.6 mmol/L (21-32); CREATININE 1.1 mg/dL (0.6-1.3); MAGNESIUM 1.6 mg/dL (1.8-2.4); POTASSIUM 3.4 mmol/L (3.5-5.1); TOTAL BILIRUBIN 1.8 mg/dL (0.0-1.0)
--- NOTE | 2020-07-10 09:45 | NUR ---
Pt resting, provided warm blanket, HOB elevated, VSS, will continue to monitor.
--- NOTE | 2020-07-10 10:19 | NUR ---
Pt ambulated to restroom with a steady gait, VSS, will continue to monitor.
--- NOTE | 2020-07-10 10:24 | NUR ---
Spoke with Dr. Estrada, pt to remain NPO, pending GI consult.
--- NOTE | 2020-07-10 10:41 | NUR ---
IV established to right hand 20G, good blood return noted.
--- NOTE | 2020-07-10 11:06 | NUR ---
Pt describes vivid hallucinations are present at this time. Pt has hx of chronic alcohol abuse.
--- NOTE | 2020-07-10 11:48 | NUR ---
IV to left AC d/c, infiltrated at the site. Applied pressure for 2 minutes. VSS, will continue to monitor.
--- NOTE | 2020-07-10 11:57 | NUR ---
IV established to left hand 22G, good blood return. Pt tolerated well.
[2020-07-10] MEDS ORDERED: LORazepam 2 MG/ML VIAL IM/IVP PRN (12:55)
--- NOTE | 2020-07-10 13:50 | NUR ---
Gave report to DEA Bustillo, pending admission 108-B. ETA 10 minutes.
--- NOTE | 2020-07-10 14:00 | NUR ---
Patient will be admitted to care of Dr. Matias. Admited to tele. Will go to [id number]. Belongings list completed. Report to DEA Bustillo.
--- NOTE | 2020-07-10 14:12 | NUR ---
RECEIVED PATIENT FROM ER, PATIENT RESTING COMFORTABLY, NO S/SX OF PAIN OR DISCOMFORT. RESPIRATIONS ARE NON-LABORED. SKIN IS CLEAN, WARM AND DRY TO TOUCH. IV ACCESS IS PATENT, DRY AND INTACT. BED IS LOCKED IN LOWEST POSITION, CALL LIGHT IN REACH. TELE-MONITOR ACTIVE. NURSE WILL CONTINUE TO MONITOR FOR CHANGES IN STATUS.
[2020-07-10 15:49] VITALS: BP 124/72
[2020-07-10] MEDS: SODIUM FERRIC GLUCONATE 125 MG in NACL 0.9% 100 ML IV SCH (16:00)
--- NOTE | 2020-07-10 19:10 | NUR ---
Patient on bilateral restraints for safety. Respirations non-labored, skin is clean, warm and dry to touch. Iv access is patent, dry and intact. Bed is locked in lowest position, call light in reach. Patient endorsed to night club manager nurse
--- NOTE | 2020-07-10 19:40 | NUR ---
RECEIVED PT WITHOUT RESTRAINT AND IV , REINSERTED IV, PATIENT ALERT, AWAKE, ABLE TO MAKE NEEDS KNOWN, SKIN WARM TO TOUCH RESP. EVEN AND UNLABORED, BLOOD SUGAR CHECKED 85, BED ALARM IN PLACE.
[2020-07-10 20:00] VITALS: BP 158/93
[2020-07-10 20:58] LABS: HEMATOCRIT 40.2 % (36-52); HEMOGLOBIN 12.8 g/dL (12.0-18.0)
--- NOTE | 2020-07-10 21:00 | NUR ---
PATIENT WENT TO THE BATHROOM WITHOUT DIFFICULTY, EXPLAINED TO PT NEED TO CALL FOR HELP, PATIENT AGREED WITH IT.
--- NOTE | 2020-07-10 23:00 | NUR ---
CALL PLACE TO PT REQUESTING SLEEPING PILL.
[2020-07-10] MEDS: ZOLPIDEM 5 MG TAB PO PRN (23:53)
[2020-07-11] VITALS: BP 150/81
--- NOTE | 2020-07-11 00:09 | NUR ---
APPLE JUICE GIVEN AND AMBIEN, PATIENT ALERT, AWAKE, NO UNUSUAL OBSERVATION NOTED.
[2020-07-11 01:57] LABS: HEMATOCRIT 37.2 % (36-52); HEMOGLOBIN 11.8 g/dL (12.0-18.0)
--- NOTE | 2020-07-11 02:13 | NUR ---
PATIENT SLEEPING IN PROTONIX ONGOING, IV SITE INTACT, NO DISTRESS NOTED.
[2020-07-11 04:00] VITALS: BP 141/88
[2020-07-11] MEDS: BLOOD GLUCOSE MONITORING 1 DEV DEV FS SCH ×4 (06:18→21:00)
[2020-07-11] MEDS: SUCRALFATE 1 GM TAB PO SCH ×3 (06:38→17:52)
--- NOTE | 2020-07-11 06:41 | NUR ---
BLOOD SUGAR OBTAINED, PATIENT ALERT, AWAKE ORIENTED, NO C/O PAIN, NO AGITATION, IV SITE INTACT
[2020-07-11 08:00] VITALS: BP 123/69
[2020-07-11] MEDS: PANTOPRAZOLE 80 MG in NACL 0.9% 100 ML IVP SCH ×2 (08:30→18:24)
[2020-07-11] MEDS: NACL 0.9% 1,000 ML IV SCH ×2 (09:05→21:35)
[2020-07-11 09:26] LABS: BASOPHILS % (AUTO) 0.5 % (0.0-2.0); EOSINOPHILS % (AUTO) 0.3 % (0.0-4.0); HEMATOCRIT 35.3 % (36-52); HEMOGLOBIN 11.4 g/dL (12.0-18.0); LYMPHOCYTES # (AUTO) 0.9 K/uL (2.0-11.5); LYMPHOCYTES % (AUTO) 10.5 % (20.5-51.1); MEAN CORPUSCULAR HEMOGLOBIN 24 pg (27-31); MEAN CORPUSCULAR HGB CONC 32 g/dL (33-37); MEAN CORPUSCULAR VOLUME 74.6 fL (80-94); MONOCYTES # (AUTO) 0.6 K/uL (0.8-1.0); MONOCYTES % (AUTO) 6.5 % (1.7-9.3); NEUTROPHILS # (AUTO) 7.4 K/uL (1.8-7.7); NEUTROPHILS % (AUTO) 82.2 % (42.2-75.2); PLATELET COUNT (AUTO) 34 K/uL (140-450); RED BLOOD CELL COUNT(AUTO) 4.74 MIL/uL (4.20-6.10)
--- NOTE | 2020-07-11 10:44 | NUR ---
RECEIVED REPORT FROM NICOLE MALIN FOR CONTINUITY OF CARE. PATIENT AWAKE A/OX4 NO S/S OF RESP DISTRESS NOTED ABLE TO MAKE NEEDS KNOWN. IV SITE RT HAND G 20 INTACT AND PATIENT . IVF INFUSING WELL PLAN OF CARE DISCUSSED WITH THE PATIENT VITALS STABLE WILL CONTINUE TO MONITOR.
[2020-07-11 10:49] LABS: ALBUMIN 3.8 g/dL (3.4-5.0); ANION GAP 16.7 (8-16); CARBON DIOXIDE 26.4 mmol/L (21-32); MAGNESIUM 1.4 mg/dL (1.8-2.4); POTASSIUM 3.1 mmol/L (3.5-5.1)
[2020-07-11 12:00] VITALS: BP 126/78
--- NOTE | 2020-07-11 12:00 | NUR ---
VITALS STABLE DENIES ANY PAIN LUNCH SERVED GOOD APPETITE, WILL CONTINUE TO MONITOR.
[2020-07-11] MEDS: chlordiazePOXIDE 25 MG CAP PO SCH ×3 (13:00→17:47)
[2020-07-11 13:07] LABS: HEMATOCRIT 33.7 % (36-52); HEMOGLOBIN 10.8 g/dL (12.0-18.0)
[2020-07-11] MEDS: FOLIC ACID 1 MG TAB PO SCH (13:33)
[2020-07-11] MEDS: OXYBUTYNIN 5 MG TAB PO SCH (14:35)
[2020-07-11] MEDS: THIAMINE 100 MG TAB PO SCH (14:35)
[2020-07-11] MEDS: PROPRANOLOL 20 MG TAB PO SCH (14:35)
[2020-07-11] MEDS: INSULIN LANTUS 100 UNITS/ML 10 ML VIAL SUBQ SCH (14:43)
[2020-07-11] MEDS: LACTULOSE 20 GM/30 ML UDC PO SCH ×2 (14:56→21:00)
[2020-07-11 16:00] VITALS: BP 129/66
[2020-07-11] MEDS: SODIUM FERRIC GLUCONATE 125 MG in NACL 0.9% 100 ML IV SCH (16:00)
--- NOTE | 2020-07-11 16:00 | NUR ---
DUE MEDS GIVEN AMBULATE TO BATHROOM NO WEAKNESS NOTED , CALM AND QUITE COOPERATIVE. VITALS STABLE WILL CONTINUE TO MONITOR
[2020-07-11 20:00] VITALS: BP 104/47
--- NOTE | 2020-07-11 20:48 | NUR ---
SAFETY MAINTAINED CALL LIGHT IN REACH . ENDORSE THE CARE TO LEAN SIX SIGMA BLACK BELT NURSE STABLE CONDITION
--- NOTE | 2020-07-11 21:00 | NUR ---
RECEIVED PT IN STABLE CONDITION RESPIRATIONS EVEN AND UNLABORED. REPORT GIVEN BY NADYA MALIN DAYSHIFT NURSE. PT IN BED HAS IV SITE ON RIGHT HAND 22 GUAGE RUNNING NORMAL SALINE ORDERED. ALL DROPLET AND FALLS PREVENTION IN PLACE.
--- NOTE | 2020-07-11 21:30 | NUR ---
FINGERSTICK IS 103,NO HUMALOG COVERAGE NEEDED. PT ALSO RECEIVED ORDERED LACTULOSE. ALL REQUESTED NEEDS ATTENDED BY STAFF AND CALL CHANCE IN REACH.
[2020-07-11] MEDS: ZOLPIDEM 5 MG TAB PO PRN (22:41)
--- NOTE | 2020-07-11 23:00 | NUR ---
PT REQUESTED AND WAS GIVEN PRN AMBIEN FOR INSOMNIA.
[2020-07-12] VITALS: BP 116/53
--- NOTE | 2020-07-12 01:00 | NUR ---
PT IN BED SLEEPING V/S STABLE ALL DROPLET AND FALLS PREVENTION IN PLACE.
[2020-07-12 04:00] VITALS: BP 118/64
[2020-07-12] MEDS ORDERED: PANTOPRAZOLE 40 MG INJ VIAL ONE (04:26)
[2020-07-12] MEDS: PANTOPRAZOLE 80 MG in NACL 0.9% 100 ML IVP SCH (04:30)
--- NOTE | 2020-07-12 04:30 | NUR ---
MARIO ALBERTO HUNG AND RUNNING t 10mls/hr.
[2020-07-12] MEDS: BLOOD GLUCOSE MONITORING 1 DEV DEV FS SCH ×4 (06:32→21:11)
[2020-07-12] MEDS: SUCRALFATE 1 GM TAB PO SCH (06:35)
[2020-07-12 08:00] VITALS: BP 121/64
[2020-07-12 09:28] LABS: BASOPHILS % (AUTO) 0.9 % (0.0-2.0); EOSINOPHILS # (AUTO) 0.2 K/uL (0-0.4); EOSINOPHILS % (AUTO) 3.3 % (0.0-4.0); HEMATOCRIT 31.3 % (36-52); HEMOGLOBIN 10.1 g/dL (12.0-18.0); LYMPHOCYTES # (AUTO) 0.8 K/uL (2.0-11.5); LYMPHOCYTES % (AUTO) 16.3 % (20.5-51.1); MEAN CORPUSCULAR HEMOGLOBIN 24 pg (27-31); MEAN CORPUSCULAR HGB CONC 32 g/dL (33-37); MEAN CORPUSCULAR VOLUME 75.3 fL (80-94); MONOCYTES # (AUTO) 0.4 K/uL (0.8-1.0); MONOCYTES % (AUTO) 8.9 % (1.7-9.3); NEUTROPHILS # (AUTO) 3.3 K/uL (1.8-7.7); NEUTROPHILS % (AUTO) 70.6 % (42.2-75.2); PLATELET COUNT (AUTO) 30 K/uL (140-450); RED BLOOD CELL COUNT(AUTO) 4.16 MIL/uL (4.20-6.10); RED CELL DISTRIBUTION WIDTH 17.4 % (11.6-13.7); WHITE BLOOD COUNT (AUTO) 4.7 K/uL (4.8-10.8)
[2020-07-12] MEDS: chlordiazePOXIDE 25 MG CAP PO SCH (09:28)
[2020-07-12] MEDS: THIAMINE 100 MG TAB PO SCH (09:28)
[2020-07-12] MEDS: FOLIC ACID 1 MG TAB PO SCH (09:28)
[2020-07-12] MEDS: LACTULOSE 20 GM/30 ML UDC PO SCH (09:28)
[2020-07-12] MEDS: OXYBUTYNIN 5 MG TAB PO SCH (09:29)
[2020-07-12] MEDS: PROPRANOLOL 20 MG TAB PO SCH (09:29)
[2020-07-12] MEDS: INSULIN LANTUS 100 UNITS/ML 10 ML VIAL SUBQ SCH (09:30)
--- NOTE | 2020-07-12 09:30 | NUR ---
SCHEDULED MEDICATIONS GIVEN. EDUCATION PROVIDED. ACCUCHECK DONE, BS 90. PATIENT DENIES PAIN OR DISCOMFORT AT THIS TIME. WILL CONTINUE TO MONITOR.
[2020-07-12 09:53] LABS: ALBUMIN 3.4 g/dL (3.4-5.0); ANION GAP 15.4 (8-16); CARBON DIOXIDE 24.3 mmol/L (21-32); CREATININE 0.8 mg/dL (0.6-1.3); MAGNESIUM 1.6 mg/dL (1.8-2.4); TOTAL BILIRUBIN 1.6 mg/dL (0.0-1.0)
[2020-07-12 10:13] LABS: POTASSIUM 2.7 mmol/L (3.5-5.1)
[2020-07-12] MEDS: INSULIN LISPRO SLIDING SCALE 100 UNITS/ML VIAL SUBQ PRN ×2 (11:57→20:44)
[2020-07-12 12:00] VITALS: BP 118/61
[2020-07-12] MEDS ORDERED: POTASSIUM CHLORIDE 20% 40 MEQ/15 ML UDC GT SCH (12:00)
[2020-07-12] MEDS ORDERED: MAG SULF 2000 MG/WATER PREMIX 100 ML IV SCH (12:00)
[2020-07-12] MEDS: FERROUS SULFATE 325 MG TABEC PO SCH ×2 (12:05→16:41)
--- NOTE | 2020-07-12 12:20 | NUR ---
MAGNESIUM GIVEN VIA IVF. EDUCATION PROVIDED. PATIENT VERBALIZED UNDERSTANDING. NO ACUTE DISTRESS NOTED. WILL CONTINUE TO MONITOR.
[2020-07-12] MEDS ORDERED: POTASSIUM CHLORIDE 40 MEQ, LIDOCAINE MPF 1% 25 MG in NACL 0.9% 250 ML IV SCH (13:00)
--- NOTE | 2020-07-12 14:15 | NUR ---
40 MEQ K RIDER GIVEN VIA IVF FOR POTASSIUM LEVEL 2.7. EDUCATION PROVIDED. SAFETY MEASURES IN PLACE. PATIENT DENIES PAIN OR DISCOMFORT AT THIS TIME. WILL CONTINUE TO MONITOR.
[2020-07-12] MEDS ORDERED: PANT40EC56 PO (15:58)
[2020-07-12 16:00] VITALS: BP 114/69
--- NOTE | 2020-07-12 16:47 | NUR ---
SCHEDULED MEDICATIONS GIVEN. ACCUCHECK DONE, BS 85, NO INSULIN COVERAGE NEEDED AT THIS TIME. K RIDER INFUSING WELL. SAFETY MEASURES IN PLACE, WILL CONTINUE TO MONITOR.
[2020-07-12] MEDS ORDERED: MAGNESIUM OXIDE 400 MG TAB PO SCH (17:00)
[2020-07-12 18:12] LABS: CARBON DIOXIDE 24.8 mmol/L (21-32); CREATININE 0.8 mg/dL (0.6-1.3); POTASSIUM 3.8 mmol/L (3.5-5.1)
--- NOTE | 2020-07-12 19:20 | NUR ---
ENDORSED PATIENT TO WELT ROUGHER RN FOR CONTINUITY OF CARE/DISCHARGE.
--- NOTE | 2020-07-12 19:20 | NUR ---
RECEIVED REPORT FROM HARVINDER MALIN DAYSHIFT NURSE AT BEDSIDE FOR CONTINUITY OF CARE, PT IN STABLE CONDITION.
[2020-07-12] MEDS ORDERED: PANTOPRAZOLE 40 MG TABEC PO SCH (21:00)
--- NOTE | 2020-07-12 21:00 | NUR ---
PT FINGERSTICK IS 253 V/S ARE FOLLOWS: T 97.0 P 67 R 20 B/P 139/74 02 96% ON ROOM AIR. PT WAS GIVEN 6 UNITS HUMALOG COVERAGE WELL ORDERED PROTONIX PO. PT DISCHARGE PAPERS REVIEWED , MEDICATION PURPOSES AND SIDE EFFECTS EXPLAINED, PT SIGNED PAPERS.HE CALLED SISTER FOR A RIDE AWAITING HER ARRIVAL. ALL IV 'S PULLED OUT WITH CANNULA INTACT.
--- NOTE | 2020-07-12 21:15 | NUR ---
PT LEFT IN STABLE CONDITION, WITH BELONGINGS IN HAND. SISTER OUTSIDE TO PICK HIM UP PT LEFT ESCORTED IN W/C. NAME BANDS OFF.
[2020-07-13] MEDS ORDERED: LACTULOSE 20 GM/30 ML UDC PO SCH (09:00)
[2020-07-13] MEDS ORDERED: POTASSIUM CHLORIDE 20% 40 MEQ/15 ML UDC GT SCH (09:00)
== END 2020-07-12 21:15 | disposition home or self-care (01) | DRG 253 ==
LOC: MED 04:31 → MMU 07:22 → MTU 14:00
PROVIDERS: ADMIT Hospitalist; ATTEND Hospitalist
DX: K92.0 Hematemesis (principal); K86.1 Other chronic pancreatitis; I48.91 Unspecified atrial fibrillation; Z20.828 Contact with and (suspected) exposure to other viral communicable diseases; Z85.46 Personal history of malignant neoplasm of prostate; E11.9 Type 2 diabetes mellitus without complications; K21.9 Gastro-esophageal reflux disease without esophagitis; Z83.3 Family history of diabetes mellitus; R74.01 Elevation of levels of liver transaminase levels; F10.10 Alcohol abuse, uncomplicated; E80.6 Other disorders of bilirubin metabolism; Z87.19 Personal history of other diseases of the digestive system; D64.9 Anemia, unspecified; R65.11 Systemic inflammatory response syndrome (SIRS) of non-infectious origin with acute organ dysfunction
CPT/HCPCS: 36415; 71045; 80048; 80053; 80305; 82948; 83735; 85018; 85025; 85610; 85730; 86870; 86886; 86900; 86901; 87040; 93005; 96365; 96375; 96376; 99285; C9113; G0482; J0696; J1815; J2001; J2060; J2270; J2354; J2405; J2765; J2916; J3475; J3480; J7030

== ENCOUNTER 2020-09-29 02:03 | Emergency (ER) | payer OTHER, SELFPAY ==
[~2020-09-29] VITALS: Ht 190.5 cm; Wt 74.8 kg
[~2020-09-29 02:03] MED LIST changes: +CHOL500022 PO; +GLYB5TAB14 PO; +INSU100I7 SQ; +METF-1022 PO; +MIRA25TE PO; -OMEP20TC10 PO; +OXYB10TA2 PO; +PANT40EC56 PO; +PROP20TA29 PO; +SEMA0.25 SQ; +SUCR1TAB7 PO; +THIA-10 PO; +VITA1TAB44 PO; -VITB1I PO
[2020-09-29 02:08] VITALS: BP 132/99
--- NOTE | 2020-09-29 02:08 | NUR ---
to bed ambulatory
[2020-09-29] MEDS ORDERED: ONDANSETRON 4 MG/2 ML VIAL IVP ONE (02:15)
[2020-09-29] MEDS ORDERED: NACL 0.9% 1,000 ML IV SCH (02:15)
[2020-09-29] MEDS ORDERED: MORPHINE SULFATE 4 MG/ML SYR IVP ONE ×2 (02:20→04:15)
--- NOTE | 2020-09-29 02:35 | NUR ---
PT BIB SELF, AMBULATORY, C/O GENERALIZED ABDOMINAL PAIN 8/10 THAT RADIATES TO MID BACK X 1 DAY. PT STATES HAS CONSTIPATION FOR 5 DAYS, MULTIPLE EPISODES OF N/V PRIOR TO ARRIVAL, DENIES BLOOD IN EMESIS. PATIENT STATES LOSS OF APPETITE X 7 DAYS, HIS THROAT FEELS "DRY". PT ALSO REPORTS FEELING LIGHTHEADED WITH LACK OF ENERGY. MED HX: APPENDICITIS, HERNIA REPAIR, DIABETES, GERD, PANCREATITIS, PROSTATE CA ALLERGY HX: NKA
--- NOTE | 2020-09-29 02:45 | NUR ---
HUSSEIN COVID SWAB COLLECTED AND GIVEN TO BIOMEDICAL ENGINEERING AIDE.
--- NOTE | 2020-09-29 02:46 | NUR ---
EKG BEING PERFORMED AT BEDSIDE.
[2020-09-29 02:52] LABS: BASOPHILS # (AUTO) 0.2 K/uL (0.00-0.22); BASOPHILS % (AUTO) 2.3 % (0.0-2.0); EOSINOPHILS # (AUTO) 0.2 K/uL (0-0.4); EOSINOPHILS % (AUTO) 2.6 % (0.0-4.0); HEMATOCRIT 37.9 % (36-52); HEMOGLOBIN 11.7 g/dL (12.0-18.0); LYMPHOCYTES % (AUTO) 25.4 % (20.5-51.1); MEAN CORPUSCULAR HEMOGLOBIN 23 pg (27-31); MEAN CORPUSCULAR HGB CONC 31 g/dL (33-37); MEAN CORPUSCULAR VOLUME 74.5 fL (80-94); MONOCYTES # (AUTO) 0.7 K/uL (0.8-1.0); MONOCYTES % (AUTO) 9.4 % (1.7-9.3); NEUTROPHILS # (AUTO) 4.7 K/uL (1.8-7.7); NEUTROPHILS % (AUTO) 60.3 % (42.2-75.2); PLATELET COUNT (AUTO) 246 K/uL (140-450); RED BLOOD CELL COUNT(AUTO) 5.08 MIL/uL (4.20-6.10); RED CELL DISTRIBUTION WIDTH 17.3 % (11.6-13.7); WHITE BLOOD COUNT (AUTO) 7.9 K/uL (4.8-10.8)
[2020-09-29 03:12] LABS: ALBUMIN 4.3 g/dL (3.4-5.0); ANION GAP 27.5 (8-16); CARBON DIOXIDE 18.5 mmol/L (21-32); CREATININE 1.6 mg/dL (0.6-1.3); TOTAL BILIRUBIN 1.1 mg/dL (0.0-1.0)
--- NOTE | 2020-09-29 03:20 | NUR ---
PT TAKEN TO CT VIA MAIDA
--- NOTE | 2020-09-29 04:20 | NUR ---
PT REPORTS PAIN REMAINS 04/25, MD GONZALEZ MADE AWARE. NEW ORDERS GIVEN FOR MORPHINE.
[2020-09-29] MEDS ORDERED: INSULIN REGULAR, HUMAN 100 UNIT/ML VIAL IVP ONE (05:00)
[2020-09-29] MEDS ORDERED: IBUP-2213 PO (05:34)
[2020-09-29] MEDS ORDERED: ONDA8TAB87 PO (05:34)
--- NOTE | 2020-09-29 05:50 | NUR ---
IV removed, catheter intact and site benign. Applied folded 4x4 gauze and tape to stop bleeding.
--- NOTE | 2020-09-29 05:52 | NUR ---
Patient discharged with v/s stable. Written and verbal after care instructions given and explained. Patient alert, oriented and verbalized understanding of instructions. Ambulatory with steady gait. All questions addressed prior to discharge. ID band removed. Patient advised to follow up with PMD. Rx of MOTRIN AND ZOFRAN given. Patient educated on indication of medication including possible reaction and side effects. Opportunity to ask questions provided and answered.
[2020-09-29 05:56] VITALS: BP 144/85
--- NOTE | 2020-09-29 05:59 | NUR ---
Note undone in EDM - 09/29/20 at 0600 by [email or web address] Patient discharged with v/s stable. Written and verbal after care instructions given and explained. Patient alert, oriented and verbalized understanding of instructions. Ambulatory with steady gait. All questions addressed prior to discharge. ID band removed. Patient advised to follow up with PMD. Rx of MOTRIN AND ZOFRAN given. Patient educated on indication of medication including possible reaction and side effects. Opportunity to ask questions provided and answered.
== END 2020-09-29 05:52 | disposition home or self-care (01) ==
LOC: MED 02:03
DX: R10.9 Unspecified abdominal pain (principal); Z20.822 Contact with and (suspected) exposure to COVID-19; R53.1 Weakness; R73.9 Hyperglycemia, unspecified; E11.9 Type 2 diabetes mellitus without complications; K21.9 Gastro-esophageal reflux disease without esophagitis; Z79.899 Other long term (current) drug therapy; Z85.46 Personal history of malignant neoplasm of prostate; Z79.84 Long term (current) use of oral hypoglycemic drugs; Z90.49 Acquired absence of other specified parts of digestive tract; Z98.890 Other specified postprocedural states
CPT/HCPCS: 36415; 36600; 74176; 80053; 82803; 83690; 84484; 85025; 86886; 86900; 86901; 87426; 93005; 96361; 96374; 96375; 96376; 99285; J1815; J2270; J2405; J7030